=== PATIENT | female | born 1960 | race Caucasian/White ===

== ENCOUNTER 2021-09-21 05:43 | Observation (INO) | payer BC ==
[2021-09-21] MEDS ORDERED: MORPHINE SULFATE 2 MG/ML SYRINGE IVP STA (06:06)
--- NOTE | 2021-09-21 06:19 | ED ---
General Adult HPI - General Chief complaint: Extremity Problem,Nontraumatic Stated complaint: Swollen Feet Time Seen by Provider: 09/21/21 06:05 Source: patient, family, RN notes reviewed, old records reviewed Mode of arrival: wheelchair Limitations: no limitations - History of Present Illness Initial comments: This is a pleasant 61-year-old female that presents to the emergency room with complaints of bilateral lower extremity swelling and left-sided chest pain. Patient states that she has noticed swelling in her legs over the past couple of weeks more so on the left than on the right. She states that today she developed some left-sided chest pain that woke her from sleep and describes it more of a discomfort with some shortness of breath. Patient does take an aspirin a day, no history of DVT or PE. History of diabetes and hypertension. -: week(s) (2) Location: chest, left, right, lower extremity Radiation: non-radiation Severity scale (1-10): 4 Quality: aching Treatments Prior to Arrival: none - Related Data Home Medications Medication Instructions Recorded Confirmed Atorvastatin Calcium [Lipitor] 40 mg PO HS 09/21/21 09/21/21 Gabapentin 800 mg PO TID PRN 09/21/21 09/21/21 Insulin Detemir (Levemir) [Levemir] 10 units SQ BID 09/21/21 09/21/21 Insulin Lispro [Insulin Lispro See Protocol SQ AC-TID 09/21/21 09/21/21 Kwikpen U-100] Levothyroxine Sodium [Synthroid] 175 mcg PO DAILY 09/21/21 09/21/21 Metoprolol Tartrate [Lopressor] 50 mg PO BID 09/21/21 09/21/21 amLODIPine [Norvasc] 5 mg PO HS 09/21/21 09/21/21 lisinopriL [Prinivil] 20 mg PO DAILY 09/21/21 09/21/21 Allergies Allergy/AdvReac Type Severity Reaction Status Date / Time No Known Allergies Allergy Verified 09/21/21 05:51 Review of Systems ROS Statement: Those systems with pertinent positive or pertinent negative responses have been documented in the HPI. ROS Other: All systems not noted in ROS Statement are negative. Past Medical History Past Medical History: Diabetes Mellitus, Hypertension History of Any Multi-Drug Resistant Organisms: None Reported Past Surgical History: Section, Heart Catheterization With Stent Past Psychological History: No Psychological Hx Reported Smoking Status: Current every day smoker, Never smoker Past Alcohol Use History: Occasional Past Drug Use History: Marijuana General Exam Limitations: no limitations General appearance: alert, in no apparent distress Head exam: Present: atraumatic ENT exam: Present: normal oropharynx, mucous membranes moist Neck exam: Absent: tenderness, meningismus, lymphadenopathy Respiratory exam: Present: normal lung sounds bilaterally. Absent: respiratory distress, wheezes, rales, rhonchi, stridor, accessory muscle use, decreased breath sounds Cardiovascular Exam: Present: regular rate, normal rhythm. Absent: JVD GI/Abdominal exam: Present: soft. Absent: distended, tenderness Extremities exam: Present: full ROM, normal capillary refill, pedal edema (Bilateral, left > right), calf tenderness (left ) Left Knee exam: Present: swelling. Absent: tenderness Lower Leg exam: Present: tenderness (calf), swelling, Homans' sign. Absent: ecchymosis, erythema Ankle exam: Present: swelling. Absent: tenderness Foot/Toe exam: Present: swelling. Absent: tenderness, ecchymosis Neurovascular tendon exam: Absent: abnormal cap refill, extremity cold to touch, pallor, foot drop Back exam: Present: normal inspection. Absent: tenderness, CVA tenderness (R), CVA tenderness (L), rash noted Neurological exam: Present: alert, oriented X3 Psychiatric exam: Present: normal affect, normal mood Skin exam: Present: warm, dry, normal color. Absent: cyanosis, diaphoretic, petechiae, pallor Course Vital Signs 09/21/21 09/21/21 05:46 07:49 Temperature 98.0 F Pulse Rate 72 60 Respiratory 18 18 Rate Blood Pressure 162/92 135/80 O2 Sat by Pulse 98 98 Oximetry EKG Findings - EKG Results: EKG: sinus rhythm (Ventricular rate of 66, SC interval 0.167, QRS 0.101, QTC 0.427) Medical Decision Making - Medical Decision Making Patient presents with bilateral lower extremity swelling for 2 weeks and left- sided chest pain and shortness of breath that awoke her from sleep today. EKG shows sinus rhythm and troponin is negative at 0.012. There is no evidence of heart failure on x-ray and BNP is within normal limits. Ultrasound shows no evidence of DVT. Patient did have a echocardiogram in August of this year showing an ejection fraction of 55-60% with mild regurgitation. Patient's pain has improved after morphine. Case discussed with Dr. Nguyen. Patient will be placed in observation with cardiac consult. - Lab Data Result diagrams: 09/21/21 06:16 09/21/21 06:16 Lab Results 09/21/21 09/21/21 09/21/21 Range/Units 06:16 06:16 06:16 WBC 5.2 (3.8-10.6) k/uL RBC 3.42 L (3.80-5.40) m/uL Hgb 11.1 L (11.4-16.0) gm/dL Hct 34.0 (34.0-46.0) % MCV 99.5 (80.0-100.0) fL MCH 32.5 (25.0-35.0) pg MCHC 32.6 (31.0-37.0) g/dL RDW 13.6 (11.5-15.5) % Plt Count 213 (150-450) k/uL MPV 7.8 Neutrophils % 70 % Lymphocytes % 22 % Monocytes % 5 % Eosinophils % 1 % Basophils % 1 % Neutrophils # 3.7 (1.3-7.7) k/uL Lymphocytes # 1.2 (1.0-4.8) k/uL Monocytes # 0.3 (0-1.0) k/uL Eosinophils # 0.1 (0-0.7) k/uL Basophils # 0.0 (0-0.2) k/uL PT 10.7 (9.0-12.0) sec INR 1.0 (<1.2) APTT 24.7 (22.0-30.0) sec D-Dimer 0.22 (<0.60) mg/L FEU Sodium 131 L (137-145) mmol/L Potassium 4.1 (3.5-5.1) mmol/L Chloride 97 L (98-107) mmol/L Carbon Dioxide 27 (22-30) mmol/L Anion Gap 7 mmol/L BUN 32 H (7-17) mg/dL Creatinine 0.89 (0.52-1.04) mg/dL Est GFR (CKD-EPI)AfAm 82 (>60 ml/min/1.73 sqM) Est GFR (CKD-EPI)NonAf 71 (>60 ml/min/1.73 sqM) Glucose 195 H (74-99) mg/dL Calcium 9.2 (8.4-10.2) mg/dL Magnesium 2.1 (1.6-2.3) mg/dL Total Bilirubin 0.5 (0.2-1.3) mg/dL AST 141 H (14-36) U/L ALT 64 H (4-34) U/L Alkaline Phosphatase 167 H (38-126) U/L Troponin I (0.000-0.034) ng/mL NT-Pro-B Natriuret Pep pg/mL Total Protein 6.5 (6.3-8.2) g/dL Albumin 3.6 (3.5-5.0) g/dL 09/21/21 09/21/21 Range/Units 06:16 06:16 WBC (3.8-10.6) k/uL RBC (3.80-5.40) m/uL Hgb (11.4-16.0) gm/dL Hct (34.0-46.0) % MCV (80.0-100.0) fL MCH (25.0-35.0) pg MCHC (31.0-37.0) g/dL RDW (11.5-15.5) % Plt Count (150-450) k/uL MPV Neutrophils % % Lymphocytes % % Monocytes % % Eosinophils % % Basophils % % Neutrophils # (1.3-7.7) k/uL Lymphocytes # (1.0-4.8) k/uL Monocytes # (0-1.0) k/uL Eosinophils # (0-0.7) k/uL Basophils # (0-0.2) k/uL PT (9.0-12.0) sec INR (<1.2) APTT (22.0-30.0) sec D-Dimer (<0.60) mg/L FEU Sodium (137-145) mmol/L Potassium (3.5-5.1) mmol/L Chloride (98-107) mmol/L Carbon Dioxide (22-30) mmol/L Anion Gap mmol/L BUN (7-17) mg/dL Creatinine (0.52-1.04) mg/dL Est GFR (CKD-EPI)AfAm (>60 ml/min/1.73 sqM) Est GFR (CKD-EPI)NonAf (>60 ml/min/1.73 sqM) Glucose (74-99) mg/dL Calcium (8.4-10.2) mg/dL Magnesium (1.6-2.3) mg/dL Total Bilirubin (0.2-1.3) mg/dL AST (14-36) U/L ALT (4-34) U/L Alkaline Phosphatase (38-126) U/L Troponin I <0.012 (0.000-0.034) ng/mL NT-Pro-B Natriuret Pep 490 pg/mL Total Protein (6.3-8.2) g/dL Albumin (3.5-5.0) g/dL Disposition Clinical Impression: Chest pain Disposition: ADMITTED IP TO THIS [facility] Decision Date: 09/21/21 Decision Time: 07:38
[2021-09-21 06:34] LABS: Basophils % (A) 1 %; Eosinophils # (A) 0.1 k/uL (0-0.7); Eosinophils % (A) 1 %; HGB 11.1 gm/dL (11.4-16.0); Lymphocytes # (A) 1.2 k/uL (1.0-4.8); Lymphocytes % (A) 22 %; MCH 32.5 pg (25.0-35.0); MCHC 32.6 g/dL (31.0-37.0); MCV 99.5 fL (80.0-100.0); Mean Platelet Volume 7.8; Monocytes # (A) 0.3 k/uL (0-1.0); Monocytes % (A) 5 %; Neutrophils # (A) 3.7 k/uL (1.3-7.7); Neutrophils % (A) 70 %; Platelet Count 213 k/uL (150-450); RBC 3.42 m/uL (3.80-5.40); RDW 13.6 % (11.5-15.5); WBC 5.2 k/uL (3.8-10.6)
[2021-09-21 06:50] LABS: Albumin 3.6 g/dL (3.5-5.0); Calcium 9.2 mg/dL (8.4-10.2); Magnesium 2.1 mg/dL (1.6-2.3); Potassium 4.1 mmol/L (3.5-5.1); Total Bilirubin 0.5 mg/dL (0.2-1.3); Total Protein 6.5 g/dL (6.3-8.2)
[2021-09-21 06:57] LABS: Partial Thromboplastin Time 24.7 sec (22.0-30.0); Prothrombin Time 10.7 sec (9.0-12.0)
--- NOTE | 2021-09-21 07:02 | XR ---
EXAMINATION TYPE: XR chest 2V DATE OF EXAM: 09/21/2021 COMPARISON: NONE HISTORY: Chest pain TECHNIQUE: 2 views FINDINGS: Heart and mediastinum are normal. Lungs are clear. Diaphragm is normal. Bony thorax appears normal. IMPRESSION: Normal chest.
--- NOTE | 2021-09-21 07:27 | US ---
EXAMINATION TYPE: US venous doppler duplex LE BI DATE OF EXAM: 09/21/2021 7:14 AM COMPARISON: NONE CLINICAL HISTORY: swelling. Bilateral leg swelling SIDE PERFORMED: Bilateral TECHNIQUE: The lower extremity deep venous system is examined utilizing real time linear array sonog elin with graded compression, doppler sonography and color-flow sonography. VESSELS IMAGED: Common Femoral Vein Deep Femoral Vein Greater Saphenous Vein * Femoral Vein Popliteal Vein Small Saphenous Vein * Proximal Calf Veins (* superficial vessels) Right Leg: Negative for DVT Left Leg: Negative for DVT IMPRESSION: No evidence for DVT at this time.
[2021-09-21] MEDS ORDERED: MORPHINE SULFATE 2 MG/ML SYRINGE IVP ONE (07:37)
[2021-09-21] MEDS ORDERED: ACETAMINOPHEN TAB 325 MG TAB PO PRN (07:56)
[2021-09-21] MEDS ORDERED: NALOXONE 0.4 MG/ML 1 ML VIAL IV PRN (07:56)
--- NOTE | 2021-09-21 08:48 | P.HPIM ---
History of Present Illness H&P Date: 09/21/21 Chief Complaint: Chest pain History of Presenting Illness: Patient is a very pleasant 61-year-old female with a past medical history of hypertension, hypothyroidism and insulin-dependent diabetes mellitus. She presented to the emergency department with the chief complaint of bilateral lower extremity edema 4 weeks accompanied by left-sided chest pain. Patient reports that she recently was seen by her PCP for similar complaints and underwent an echocardiogram on 08/23/21. Echocardiogram revealed normal EF of 55- 60% with no significant valvular abnormalities. Patient reports she came to the ED today because this left-sided chest pain was radiating up into her left shoulder and down her left arm upon awakening around 5:00 this morning. Patient describes this pain as an achiness/soreness. She denies having any headache, lightheadedness, dizziness, palpitations, shortness of breath, diaphoresis, nausea, or experiencing any numbness/tingling in her extremities. Patient denies any recent medication changes, fevers, or infections. Patient reports she has often gotten swelling in her legs, but states typically they go down with elevation and over the past 4 weeks or so they seem to be consistently swollen. Patient was seen and fully evaluated in the emergency department. Labs revealed mild hyponatremia with sodium of 131 and transaminitis with AST of 141, ALT of 64, and alkaline phosphatase of 167. Patient has had previous elevated liver enzymes and history of EtOH abuse. Patient also denies having any abdominal pain or discomfort or swelling of her abdomen. A chest x-ray was completed which was negative for acute cardiopulmonary process. Bilateral lower extremity Dopplers negative for DVT. EKG revealed normal sinus rhythm at 66 bpm with no noted T-wave or ST abnormalities. D-dimer and troponin negative. Patient was admitted under our services with consultation to cardiology. Review of systems: Pertinent positives and negatives as discussed in HPI, a complete review of systems was performed and all other systems are negative. Physical exam: Vital signs reviewed and stable. General: Nontoxic, no distress and appears stated age. Derm: Skin warm and dry, normal coloration for ethnicity. Head: Atraumatic, normocephalic and symmetric. Eyes: EOMs intact, no lid lag, and anicteric sclera Mouth: no lip lesions, mucus membranes moist Cardiovascular: regular rate and rhythm with normal S1S2, no murmur, positive posterior tibial pulses bilaterally, and cap refill < 2 seconds. Lungs: Respirations even, regular, and unlabored on room air. Lungs CTA bilaterally, no rhonchi, no rales, no wheezing, and no accessory muscle usage. Abdominal: soft, nontender to palpation, no guarding, no appreciable orga nomegaly Ext: ROM intact. No gross muscle atrophy, no edema, no contractures Neuro: Speech clear, face symmetrical and CN II-XII grossly intact with no noted focal neuro deficits Psych: Alert and oriented to person, place, time, and situation. Appropriate and pleasant affect. Assessment and Plan of Care: Chest pain, rule out acute coronary event -Cardiology consult, appreciate further recommendations -Telemetry monitoring -Trend troponins -Cardiac diet, NPO at midnight -Aspirin, atorvastatin, and metoprolol -Lipid profile with a.m. labs. -Echocardiogram Transaminitis -Appears chronic, patient denies alcohol abuse, daily Tylenol use or history of hepatitis. -Patient denies having any right upper quadrant pain or discomfort. -Recommend repeat labs upon discharge and if persistent elevation, will likely need further evaluation with additional testing by PCP and/or mental health social worker. Hypertension Monitor vital signs and continue daily medication regimen with lisinopril, amlodipine, metoprolol. Hypothyroidism Continue daily medication regimen with levothyroxine. The patient is admitted with an anticipated less than 2 midnight stay for evaluation of chest pain. CODE STATUS: Full code DVT prophylaxis: SCDs Discussed with: Patient and RN Anticipated discharge date: Later today versus tomorrow morning Anticipated discharge place: Home A total of 40 minutes was spent on the care of this complex patient more than 50% of the time was spent in counseling and care coordination. Past Medical History Past Medical History: Diabetes Mellitus, Hypertension History of Any Multi-Drug Resistant Organisms: None Reported Past Surgical History: Section, Heart Catheterization With Stent Past Psychological History: No Psychological Hx Reported Smoking Status: Current every day smoker, Never smoker Past Alcohol Use History: Occasional Past Drug Use History: Marijuana Medications and Allergies Home Medications Medication Instructions Recorded Confirmed Type Atorvastatin Calcium [Lipitor] 40 mg PO HS 09/21/21 09/21/21 History Gabapentin 800 mg PO TID PRN 09/21/21 09/21/21 History Insulin Detemir (Levemir) [Levemir] 10 units SQ BID 09/21/21 09/21/21 History Insulin Lispro [Insulin Lispro See Protocol SQ AC-TID 09/21/21 09/21/21 History Kwikpen U-100] Levothyroxine Sodium [Synthroid] 175 mcg PO DAILY 09/21/21 09/21/21 History Metoprolol Tartrate [Lopressor] 50 mg PO BID 09/21/21 09/21/21 History amLODIPine [Norvasc] 5 mg PO HS 09/21/21 09/21/21 History lisinopriL [Prinivil] 20 mg PO DAILY 09/21/21 09/21/21 History Allergies Allergy/AdvReac Type Severity Reaction Status Date / Time No Known Allergies Allergy Verified 09/21/21 05:51 Physical Exam Vitals: Vital Signs Temp Pulse Resp BP Pulse Ox 09/21/21 07:49 60 18 135/80 98 09/21/21 05:46 98.0 F 72 18 162/92 98 Intake and Output 09/20/21 09/21/21 09/21/21 22:59 06:59 14:59 Other: Weight 95.708 kg Results CBC & Chem 7: 09/21/21 06:16 09/21/21 06:16 Labs: Abnormal Lab Results - Last 24 Hours (Table) 09/21/21 09/21/21 Range/Units 06:16 06:16 RBC 3.42 L (3.80-5.40) m/uL Hgb 11.1 L (11.4-16.0) gm/dL Sodium 131 L (137-145) mmol/L Chloride 97 L (98-107) mmol/L BUN 32 H (7-17) mg/dL Glucose 195 H (74-99) mg/dL AST 141 H (14-36) U/L ALT 64 H (4-34) U/L Alkaline Phosphatase 167 H (38-126) U/L
[2021-09-21] MEDS ORDERED: LEVOTHYROXINE 88 MCG TAB PO SCH (09:00)
[2021-09-21] MEDS ORDERED: GABAPENTIN 400 MG CAP PO SCH (09:00)
[2021-09-21] MEDS ORDERED: lisinopriL 20 MG TAB PO SCH (09:00)
[2021-09-21] MEDS ORDERED: METOPROLOL TARTRATE 50 MG TAB PO SCH (09:00)
[2021-09-21] MEDS ORDERED: INSULIN DETEMIR (LEVEMIR) 100 UNIT/ML SYR SQ SCH (09:00)
[2021-09-21 09:28] LABS: Glucose,Whole Blood 71 mg/dL (75-99)
--- NOTE | 2021-09-21 10:02 | P.CRDCN ---
History of Present Illness Consult date: 09/21/21 History of present illness: HISTORY OF PRESENT ILLNESS: This is a 61-year-old female with a past medical history significant for hypertension diabetes, and hypothyroidism. Patient does not follow with a industrial sociologist. We have been asked to see the patient in consultation for chest pain. Patient examined at the bedside. Patient states that she woke up this morning around 5 AM and was having chest pain. She states that discomfort went into her left arm. She states it feels like a soreness. She describes it as a muscle ache after lifting weights or exercising but she states she did not do any exercise. She also reports that her legs are swollen and she feels like it is hard to walk. She reports generalized weakness. The patient did have an echocardiogram performed last month revealing preserved ejection fraction. * EKG reveals sinus mechanism with no signs of acute ischemia * Chest xray negative for acute process * Laboratory data: WBC 5.2. Hemoglobin 11.1. Platelet count 213. D-dimer 0.22. Sodium 131. Potassium 4.1. BUN 32. Creatinine 0.98. Troponin negative 1. * Current home cardiac medications include metoprolol tartrate 59 g twice a day, amlodipine 5 mg at night, Lipitor 40 mg at night, lisinopril 20 mg daily REVIEW OF SYSTEMS: At the time of my exam: CONSTITUTIONAL: Denies fever or chills. HEENT: Denies blurred vision, vision changes, or eye pain. Denies hemoptysis CARDIOVASCULAR: Denies chest pain. Denies orthopnea. Denies PND. Denies palpitations RESPIRATORY: Denies shortness of breath. GASTROINTESTINAL: Denies abdominal pain. Denies nausea or vomiting. HEMATOLOGIC: Denies bleeding disorders. GENITOURINARY: Denies any blood in urine. SKIN: Denies pruitis. Denies rash. PHYSICAL EXAM: VITAL SIGNS: Reviewed. GENERAL: Well-developed in no acute distress. HEENT: Head is normocephalic. Pupils are equal, round. Sclerae anicteric. Mucous membranes of the mouth are moist. Neck supple. No JVD or thyromegaly LUNGS: Respirations even and unlabored. Lungs essentially clear to auscultation bilaterally. HEART: Regular rate and rhythm. S1 and S2 heard. ABDOMEN: Soft. Nondistended. Nontender. EXTREMITIES: Normal range of motion. No clubbing or cyanosis. Peripheral pulses intact. Trace bilateral lower extremity edema NEUROLOGIC: Awake and alert. Oriented x 3. ASSESSMENT: Chest pain Hypertension Hyperlipidemia Diabetes Hypothyroidism PLAN: No need to repeat echocardiogram. Obtain repeat EKG Trend troponins If second troponin remains negative, the patient may be discharged home today from a cardiac standpoint and have further workup on an outpatient basis Nurse practitioner note has been reviewed by physician. Signing provider agrees with the documented findings, assessment, and plan of care. Past Medical History Past Medical History: Diabetes Mellitus, Hypertension History of Any Multi-Drug Resistant Organisms: None Reported Past Surgical History: Section, Heart Catheterization With Stent Past Psychological History: No Psychological Hx Reported Smoking Status: Current every day smoker, Never smoker Past Alcohol Use History: Occasional Past Drug Use History: Marijuana Medications and Allergies Home Medications Medication Instructions Recorded Confirmed Type Atorvastatin Calcium [Lipitor] 40 mg PO HS 09/21/21 09/21/21 History Gabapentin 800 mg PO TID PRN 09/21/21 09/21/21 History Insulin Detemir (Levemir) [Levemir] 10 units SQ BID 09/21/21 09/21/21 History Insulin Lispro [Insulin Lispro See Protocol SQ AC-TID 09/21/21 09/21/21 History Kwikpen U-100] Levothyroxine Sodium [Synthroid] 175 mcg PO DAILY 09/21/21 09/21/21 History Metoprolol Tartrate [Lopressor] 50 mg PO BID 09/21/21 09/21/21 History amLODIPine [Norvasc] 5 mg PO HS 09/21/21 09/21/21 History lisinopriL [Prinivil] 20 mg PO DAILY 09/21/21 09/21/21 History Allergies Allergy/AdvReac Type Severity Reaction Status Date / Time No Known Allergies Allergy Verified 09/21/21 05:51 Physical Exam Vitals: Vital Signs Temp Pulse Resp BP Pulse Ox 09/21/21 07:49 60 18 135/80 98 09/21/21 05:46 98.0 F 72 18 162/92 98 Intake and Output 09/20/21 09/21/21 09/21/21 22:59 06:59 14:59 Other: Weight 95.708 kg Results 09/21/21 06:16 09/21/21 06:16 Cardiac Enzymes 09/21/21 09/21/21 Range/Units 06:16 06:16 AST 141 H (14-36) U/L Troponin I <0.012 (0.000-0.034) ng/mL Coagulation 09/21/21 Range/Units 06:16 PT 10.7 (9.0-12.0) sec APTT 24.7 (22.0-30.0) sec CBC 05 Range/Units 06:16 WBC 5.2 (3.8-10.6) k/uL RBC 3.42 L (3.80-5.40) m/uL Hgb 11.1 L (11.4-16.0) gm/dL Hct 34.0 (34.0-46.0) % Plt Count 213 (150-450) k/uL Comprehensive Metabolic Panel 09/21/21 Range/Units 06:16 Sodium 131 L (137-145) mmol/L Potassium 4.1 (3.5-5.1) mmol/L Chloride 97 L (98-107) mmol/L Carbon Dioxide 27 (22-30) mmol/L BUN 32 H (7-17) mg/dL Creatinine 0.89 (0.52-1.04) mg/dL Glucose 195 H (74-99) mg/dL Calcium 9.2 (8.4-10.2) mg/dL AST 141 H (14-36) U/L ALT 64 H (4-34) U/L Alkaline Phosphatase 167 H (38-126) U/L Total Protein 6.5 (6.3-8.2) g/dL Albumin 3.6 (3.5-5.0) g/dL Current Medications Generic Name Dose Route Start Last Admin Trade Name Freq PRN Reason Stop Dose Admin Acetaminophen 650 mg 09/21/21 07:56 Acetaminophen Tab 325 Mg Tab PO Q6HR PRN Mild Pain or Fever > 100.5 Amlodipine Besylate 5 mg 09/21/21 21:00 Amlodipine 5 Mg Tab PO HS SWETA Atorvastatin Calcium 40 mg 09/21/21 21:00 Atorvastatin 40 Mg Tab PO HS SWETA Gabapentin 800 mg 09/21/21 09:00 Gabapentin 400 Mg Cap PO TID SWETA Insulin Aspart 0 unit 09/21/21 12:30 Insulin Aspart (Novolog) 100 Unit/Ml Vial SQ ACHS [facility] Protocol Insulin Detemir 10 unit 09/21/21 09:00 Insulin Detemir (Levemir) 100 Unit/Ml Syr SQ BID@0700,2100 [facility] Levothyroxine Sodium 176 mcg 09/21/21 09:00 Levothyroxine 88 Mcg Tab PO DAILY@0630 [facility] Lisinopril 20 mg 09/21/21 09:00 Lisinopril 20 Mg Tab PO DAILY SWETA Metoprolol Tartrate 50 mg 09/21/21 09:00 Metoprolol Tartrate 50 Mg Tab PO BID [facility] Naloxone HCl 0.2 mg 09/21/21 07:56 Naloxone 0.4 Mg/Ml 1 Ml Vial IV Q2M PRN Opioid Reversal Intake and Output 09/20/21 09/21/21 09/21/21 22:59 06:59 14:59 Other: Weight 95.708 kg 09/21/21 06:16 09/21/21 06:16
[2021-09-21 12:29] LABS: Glucose,Whole Blood 79 mg/dL (75-99)
[2021-09-21] MEDS ORDERED: INSULIN ASPART (NovoLOG) 100 UNIT/ML VIAL SQ SCH (12:30)
[2021-09-21] MEDS ORDERED: HYDROcodone/APAP 5-325MG 1 EACH TAB PO PRN (13:34)
--- NOTE | 2021-09-21 15:53 | P.DS ---
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 Hypertension, Monitor vital signs and continue daily medication regimen with lisinopril, amlodipine, metoprolol. Hypothyroidism, Continue daily medication regimen with levothyroxine. Insulin-dependent diabetes mellitus, continue daily medication regimen with Levemir [facility] Course: Patient is a very pleasant 61-year-old female with a past medical history of hypertension and insulin-dependent diabetes mellitus. She presented to the emergency department with the chief complaint of bilateral lower extremity edema 4 weeks accompanied by left-sided chest pain. Patient reports that she recently was seen by her PCP for similar complaints and underwent an echocardiogram on 08/23/21. Echocardiogram revealed normal EF of 55-60% with no significant valvular abnormalities. Patient reports she came to the ED today because this left-sided chest pain was radiating up into her left shoulder and down her left arm upon awakening around 5:00 this morning. Patient describes this pain as an achiness/soreness. She denies having any headache, lightheadedness, dizziness, palpitations, shortness of breath, diaphoresis, nausea, or experiencing any numbness/tingling in her extremities. Patient denies any recent medication changes, fevers, or infections. Patient reports she has often gotten swelling in her legs, but states typically they go down with elevation and over the past 4 weeks or so they seem to be consistently swollen. Patient was seen and fully evaluated in the emergency department. Labs revealed mild hyponatremia with sodium of 131 and transaminitis with AST of 141, ALT of 64, and alkaline phosphatase of 167. Patient has had previous el evated liver enzymes and history of EtOH abuse. Patient also denies having any abdominal pain or discomfort or swelling of her abdomen. A chest x-ray was completed which was negative for acute cardiopulmonary process. Bilateral lower extremity Dopplers negative for DVT. EKG revealed normal sinus rhythm at 66 bpm with no noted T-wave or ST abnormalities. D-dimer and troponin negative. Patient was admitted under our services with consultation to cardiology. Troponins were trended all less than 0.0123 draws. A repeat EKG was completed revealing normal sinus rhythm at 61 bpm with occasional PAC and no noted T-wave or ST abnormalities. Cardiology recommending outpatient follow-up in our office. Patient is medically stable at this time and to be discharged home. As recommended patient follow-up with PCP in 1-2 days and establish care with machine design teacher and follow-up in their office in one week. Patient also instructed it is important to repeat CMP to monitor liver enzymes as they appear to be chronically elevated and this may require additional outpatient testing/monitoring. No medication changes made at this time. Vital signs unremarkable with blood pressure 135/80, heart rate 60, respiratory rate 18, and SpO2 of 98% on room air. A total of 34 minutes of time were spent preparing this complex discharge summary. Pt was discharged on 09/21/21 at 2:57 PM Patient Condition at Discharge: Stable Plan - Discharge Summary New Discharge Prescriptions: Continue lisinopriL [Prinivil] 20 mg PO DAILY Levothyroxine Sodium [Synthroid] 175 mcg PO DAILY amLODIPine [Norvasc] 5 mg PO HS Gabapentin 800 mg PO TID PRN PRN Reason: Pain Atorvastatin Calcium [Lipitor] 40 mg PO HS Insulin Detemir (Levemir) [Levemir] 10 units SQ BID Insulin Lispro [Insulin Lispro Kwikpen U-100] See Protocol SQ AC-TID Metoprolol Tartrate [Lopressor] 50 mg PO BID Discharge Medication List Atorvastatin Calcium [Lipitor] 40 mg PO HS 09/21/21 [History] Gabapentin 800 mg PO TID PRN 09/21/21 [History] Insulin Detemir (Levemir) [Levemir] 10 units SQ BID 09/21/21 [History] Insulin Lispro [Insulin Lispro Kwikpen U-100] See Protocol SQ AC-TID 09/21/21 [History] Levothyroxine Sodium [Synthroid] 175 mcg PO DAILY 09/21/21 [History] Metoprolol Tartrate [Lopressor] 50 mg PO BID 09/21/21 [History] amLODIPine [Norvasc] 5 mg PO HS 09/21/21 [History] lisinopriL [Prinivil] 20 mg PO DAILY 09/21/21 [History] Follow up Appointment(s)/Referral(s): Cem Tafoya MD [STAFF PHYSICIAN] - 1 Week (dr barker office will call to schedule appointment with gilberto) Derrick Iniguez [Primary Care Provider] - 1-2 days Ambulatory/Diagnostic Orders: Comprehensive Metabolic Panel [LAB.AMB] Time Frame: 3 Days, Location: None Selected Patient Instructions/Handouts: Chest Pain (DC) Activity/Diet/Wound Care/Special Instructions: Activity: As tolerated. Take breaks as needed. Diet: Heart healthy and carb consistent diet. Avoid salts, or foods with hidden salts such as canned or boxed foods and frozen dinners. Extra salt makes your heart work harder and traps the fluid in your body for longer. Special Instructions: Take all of your medications as directed and remember to keep all of your doctor's appointments and follow-up as needed. It appears your liver enzymes are chronically elevated. If these continue to elevate or you develop right upper quadrant pain, this needs to be further addressed/additional testing to be completed. Recommend repeat CMP in 3 days to evaluate liver function and follow up with your PCP on Friday. If these enzymes continue to remain elevated, I highly recommend outpatient evaluation by a supervisor concrete stone finishing such as Dr. Swanson. Thank you for allowing us to participate in your care, it was truly a pleasure having you for our patient!!!
[2021-09-21 17:08] VITALS: BP 147/87; PULSE 55; RESP 14; TEMP 97.9
[2021-09-21] MEDS ORDERED: ATORVASTATIN 40 MG TAB PO SCH (21:00)
[2021-09-21] MEDS ORDERED: amLODIPine 5 MG TAB PO SCH (21:00)
== END 2021-09-21 17:08 | disposition home or self-care (01) ==
LOC: EC 05:43 → 6NMEDSUR 08:03
PROVIDERS: ADMIT Family Medicine; ATTEND Family Medicine
DX: R07.89 Other chest pain (principal); R74.01 Elevation of levels of liver transaminase levels; I10 Essential (primary) hypertension; E03.9 Hypothyroidism, unspecified; E11.9 Type 2 diabetes mellitus without complications; E78.5 Hyperlipidemia, unspecified; R06.02 Shortness of breath; R60.0 Localized edema; M79.89 Other specified soft tissue disorders; E87.1 Hypo-osmolality and hyponatremia; F17.200 Nicotine dependence, unspecified, uncomplicated; Z71.9 Counseling, unspecified; Z79.899 Other long term (current) drug therapy; Z79.4 Long term (current) use of insulin; Z79.82 Long term (current) use of aspirin; Z79.890 Hormone replacement therapy; Z95.5 Presence of coronary angioplasty implant and graft
CPT/HCPCS: 96376; 96374; 99285; 36415; 93005; 85379; 83880; 80053; 83735; 84484; 85025; 85610; 85730; 71046; 93970; G0378; J2270

== ENCOUNTER 2021-12-23 11:21 | Emergency (ER) | payer BC ==
[2021-12-23 11:34] VITALS: TEMP 98.1
[2021-12-23] MEDS ORDERED: KETOROLAC 15 MG/ML 1 ML VIAL IM STA (11:51)
--- NOTE | 2021-12-23 12:38 | ED ---
General Adult HPI - General Chief complaint: Fall Stated complaint: fell on R arm Time Seen by Provider: 12/23/21 11:35 Source: patient, RN notes reviewed, old records reviewed Mode of arrival: wheelchair Limitations: no limitations - History of Present Illness Initial comments: This is a 61-year-old female who states she fell in her hallway and hurt her right forearm and elbow. Patient states she did not hit her head she did not hit her neck she denies any numbness weakness. Patient denies any other extremity pain. Patient denies back chest or abdominal pain. Patient denies any numbness or weakness. - Related Data Home Medications Medication Instructions Recorded Confirmed Atorvastatin Calcium [Lipitor] 40 mg PO HS 09/21/21 09/21/21 Gabapentin 800 mg PO TID PRN 09/21/21 09/21/21 Insulin Detemir (Levemir) [Levemir] 10 units SQ BID 09/21/21 09/21/21 Insulin Lispro [Insulin Lispro See Protocol SQ AC-TID 09/21/21 09/21/21 [place]wik[place] U-100] Levothyroxine Sodium [Synthroid] 175 mcg PO DAILY 09/21/21 09/21/21 Metoprolol Tartrate [Lopressor] 50 mg PO BID 09/21/21 09/21/21 amLODIPine [Norvasc] 5 mg PO HS 09/21/21 09/21/21 lisinopriL [Prinivil] 20 mg PO DAILY 09/21/21 09/21/21 Allergies Allergy/AdvReac Type Severity Reaction Status Date / Time No Known Allergies Allergy Verified 12/23/21 11:34 Review of Systems ROS Statement: Those systems with pertinent positive or pertinent negative responses have been documented in the HPI. ROS Other: All systems not noted in ROS Statement are negative. Past Medical History Past Medical History: Diabetes Mellitus, Hypertension History of Any Multi-Drug Resistant Organisms: None Reported Past Surgical History: Section, Heart Catheterization With Stent Past Psychological History: No Psychological Hx Reported Smoking Status: Former smoker Past Alcohol Use History: Occasional Past Drug Use History: Marijuana General Exam - General Exam Comments Initial Comments: GENERAL Patient is well-developed and well-nourished. Patient is in mild distress. EYES Patient's pupils are equal and round. Extraocular motion is intact SKIN Unremarkable NEURO The patient is alert and oriented 3 PYSCH Patient has normal interpersonal interactions. MUSCULOSKELETAL Patient has tenderness in the lateral medial aspect of the elbow and some proximal forearm tenderness. There is no swelling or deformity noted Limitations: no limitations Course Vital Signs 12/23/21 12/23/21 11:31 14:25 Temperature 98.1 F Pulse Rate 58 L 62 Respiratory 16 15 Rate Blood Pressure 124/77 152/83 O2 Sat by Pulse 99 98 Oximetry Procedures - Orthopedic Splinting/Casting Injury #1 Side: right Upper Extremity Injury Location: long arm Upper Extremity Immobilizer: posterior splint Medical Decision Making - Medical Decision Making X-ray of the forearm and elbow show no obvious fracture but does show an effusion. Computed tomography scan of the elbow did show a fracture of the distal humerus with no displacement. I splinted the patient and put the patient in a sling. Disposition Clinical Impression: Humeral distal fracture, Fall Disposition: HOME SELF-CARE Instructions (If sedation given, give patient instructions): Fall Prevention for Older Adults (ED) Is patient prescribed a controlled substance at d/c from ED?: No Referrals: Derrick Iniguez [Primary Care Provider] - 1-2 days Time of Disposition: 14:39
--- NOTE | 2021-12-23 12:39 | XR ---
EXAMINATION TYPE: XR elbow limited RT, XR forearm RT DATE OF EXAM: 12/23/2021 12:22 PM INDICATION: Patient age:Female; 61 years old; Reason for study: Trauma; COMPARISON: None TECHNIQUE: The right elbow was examined in AP, lateral, projections. The right forearm was examined in the frontal and lateral views. FINDINGS: Suspected elbow effusion is with edematous opacity posterior to the elbow. Evaluation later al segment limited given technique. There is no evidence of fracture of the osseous structures. There is ulnar negative variance.. No obvious fracture identified. IMPRESSION: Underlying elbow effusion suspected with edematous changes posterior to the elbow. Consider further e valuation CT if there remains concern for fracture.
--- NOTE | 2021-12-23 14:05 | CT ---
EXAMINATION TYPE: CT elbow RT wo con CT DLP: 282.3 mGycm, Automated exposure control for dose reduction was used. DATE OF EXAM: 12/23/2021 1:48 PM COMPARISON: Extremity radiograph same day. CLINICAL INDICATION:Female, 61 years old with history of Trauma; , Right elbow injury TECHNIQUE: Axial images were obtained of the right elbow without the use of IV contrast. Additional coronal and sagittal reformatted images and soft tissue and bone window were obtained for review. FINDINGS: Nondisplaced fracture through the distal humerus medial and lateral epicondyles. There is no definiti ve intra-articular extension. There is a lipohemarthrosis present best appreciated on series 201 imag e 43. The radius and ulna appear intact. IMPRESSION: 1. Nondisplaced fracture through the distal humerus involving the medial and lateral epicondyles wit hout definitive intra-articular extension . 2. lipohemarthrosis.
[2021-12-23 14:27] VITALS: BP 152/83; PULSE 62; RESP 15
== END 2021-12-23 14:53 | disposition home or self-care (01) ==
LOC: EC 11:21
DX: S42.444A Nondisplaced fracture (avulsion) of medial epicondyle of right humerus, initial encounter for closed fracture (principal); S42.434A Nondisplaced fracture (avulsion) of lateral epicondyle of right humerus, initial encounter for closed fracture; E11.9 Type 2 diabetes mellitus without complications; I10 Essential (primary) hypertension; Z87.891 Personal history of nicotine dependence; Z79.4 Long term (current) use of insulin; Z79.899 Other long term (current) drug therapy; W19.XXXA Unspecified fall, initial encounter
CPT/HCPCS: 99283; 96372; 73070; 73090; 73200; 29105; J1885

== ENCOUNTER → 2022-03-04 | Outpatient (CLI) | payer BC ==
[2022-03-04 08:46] VITALS: BP 159/80; PULSE 77; RESP 16; TEMP 97.8
--- NOTE | 2022-03-04 14:46 | P.PAINPG ---
PQRS Measure Charge Sheet Comment: HISTORY OF PRESENT ILLNESS: 62 yr old female as a referral from Dr Arthur presents today w severe and chronic R Hip/Pelvic s/p fracture x 4 yrs for evaluation. Pt states her pain level is currently at 6/10 in intensity, constant, localized in the R hip, achy in character w shooting pain towards the . Pain is provoked by weight bearing. Pain is alleviated w manual massage, home stretches as tolerated, heat, ice, medications (Neurontin), chiropractic treatments in 2020w minimal relief, repositioning and rest. PMH: Diabetes Mellitus, HTN PSH: Section, Heart Catheterization With Stent x4 SH: Daily tobacco use, +Cannabis, Occasional ETOH use FH: Non contributory All: NKDA Meds: See list REVIEW OF ORGAN SYSTEMS: CONSTITUTIONAL: No fevers or chills. No recent weight loss. NEUROLOGICAL: + numbness and tingling along the distal extremities. No seizure disorders or headaches. MUSCULOSKELETAL: + pain PSYCHIATRIC: Denies current depression or suicidal thoughts. Physical Examinations : Constitutional : Cooperative , not in acute distress . Neurologic : Cranial nerve II to XII intact. No focal neurological deficits. Psychiatric : alert & oriented x 3. Matching mood & appropriate affect. Judgment & insight intact. Musculoskeletal : Cervical Spine Motor strength in the deltoid and biceps: Normal right side. Normal Left side Motor strength biceps and the wrist extensors: Normal right side . Normal left side Motor strength in the triceps muscle: Normal right side. Normal left side Deep tendon reflexes: Normal at the biceps. Normal at Brachioradialis. Normal at triceps Vertebral body tenderness to deep palpation over Cervical facet loading test: positive bilaterally Spurling test: positive bilaterally Neck distraction test: positive bilaterally Radha sign: positive bilaterally Lumbar spine Motor strength lower extremities ,thigh and legs 5/5 Right side , 5/5 Left side Deep tendon reflexes : Normal Knee Jerk. Normal Ankle Jerk Vertebral body tenderness over Lumbar facet Loading Test: positive Right / positive Left Range of motion of the lumbar spine Flexion 30 degrees, extension 10 degrees Straight Leg Raise test: Left/ Right positive at degree Harmony test: positive right / positive left. Severe tenderness over the Sacroiliac joint on the Right / Left sides Gaenslen test: positive bilaterally Seated flexion test: positive bilaterally. Sacral spine : Severe tenderness over the Sacroiliac joint: right side / left side Range of motion: Flexion of the lumbar spine <60 degrees Range of motion: Extension of the lumbar spine <20 degrees Gaenslen's Test positive on L Andrew's Test positive Harmony test: positive right side / left side Thigh Thrust Test Sacral Thrust Test Imaging: None on file Assessment/ Plan : Lumbar DDD Recommendation of PT x 6 wks re : M51.36. Also MRI of the lumbar spine Re: M51.36 and R hip Re: 72.91XA. Pt may return to this clinic within 6 wks for a reevaluation. All questions answered. I have spent greater than 30 minutes on patient care today. Dr Shaikh was available by phone for the evaluation of this patient. The time was used to review the medical records including relevant urine studies and Prescription history (MAPs), review of the available imaging, evaluation and examination of the patient, coordination of care with the medical staff and if applicable referring physicians, as well as creation of the medical record Home Medications: Ambulatory Orders Atorvastatin Calcium [Lipitor] 40 mg PO HS 09/21/21 Gabapentin 800 mg PO TID PRN 09/21/21 Insulin Detemir (Levemir) [Levemir] 10 units SQ BID 09/21/21 Insulin Lispro [Insulin Lispro Kwikpen U-100] See Protocol SQ AC-TID 09/21/21 Levothyroxine Sodium [Synthroid] 175 mcg PO DAILY 09/21/21 amLODIPine [Norvasc] 5 mg PO HS 09/21/21 lisinopriL [Prinivil] 20 mg PO DAILY 09/21/21 DULoxetine HCL [Cymbalta] 60 mg PO DAILY 03/04/22 Controlled Substance Measures - Controlled Substance Measures Is patient prescribed a controlled substance at discharge?: No
== END | disposition home or self-care (01) ==
LOC: PNWHC3 08:20
PROVIDERS: ATTEND Specialist
DX: S72.91XA Unspecified fracture of right femur, initial encounter for closed fracture (principal); M51.36 Other intervertebral disc degeneration, lumbar region; Z87.81 Personal history of (healed) traumatic fracture; X58.XXXA Exposure to other specified factors, initial encounter
CPT/HCPCS: 99211

== ENCOUNTER 2022-04-14 15:03 | Inpatient (IN) | payer BC ==
[2022-04-14] MEDS ORDERED: SODIUM CHLORIDE 0.9% 1,000 ML IV STA (15:50)
[2022-04-14] MEDS ORDERED: ONDANSETRON 4 MG/2 ML VIAL IVP STA (15:50)
[2022-04-14] MEDS ORDERED: METOCLOPRAMIDE 5 MG/ML 2 ML VIAL IVP STA (15:52)
--- NOTE | 2022-04-14 16:39 | ED ---
Abdominal Pain HPI - General Chief Complaint: Abdominal Pain Stated Complaint: Nausea and vomiting Time Seen by Provider: 04/14/22 15:45 Source: patient Mode of arrival: EMS Limitations: no limitations - History of Present Illness Initial Comments: Patient is a 62-year-old female history of type 1 diabetes, gastroparesis, hypertension and CAD presenting with chief complaint of nausea and vomiting. Symptoms started today. Patient gradually started to feel nauseous and then started having uncontrollable nausea and vomiting. Patient notes that this m orning when she checked her blood sugar it was low, she ate some food and drank orange juice. Later on symptoms started. States that when EMS checked her blood sugar it was in the 500s. Patient states that for the past few weeks she has had issues with highs and lows regarding her blood sugar. She admits to abdominal soreness from retching. No localized abdominal pain. No chest pain or shortness of breath. No palpitations. No fever or chills. No numbness or tingling. - Related Data Home Medications Medication Instructions Recorded Confirmed Atorvastatin Calcium [Lipitor] 40 mg PO DIRECTED 09/21/21 04/14/22 Gabapentin 800 mg PO DIRECTED 09/21/21 04/14/22 Insulin Detemir (Levemir) [Levemir] 10 units SQ DIRECTED 09/21/21 04/14/22 Insulin Lispro [Insulin Lispro See Protocol SQ DIRECTED 09/21/21 04/14/22 Kwikpen U-100] amLODIPine [Norvasc] 5 mg PO DIRECTED 09/21/21 04/14/22 lisinopriL [Prinivil] 20 mg PO DIRECTED 09/21/21 04/14/22 DULoxetine HCL [Cymbalta] 60 mg PO DIRECTED 03/04/22 04/14/22 Levothyroxine Sodium [Synthroid] 150 mcg PO DIRECTED 04/14/22 04/14/22 Allergies Allergy/AdvReac Type Severity Reaction Status Date / Time No Known Allergies Allergy Verified 04/14/22 19:09 Review of Systems ROS Statement: Those systems with pertinent positive or pertinent negative responses have been documented in the HPI. ROS Other: All systems not noted in ROS Statement are negative. Past Medical History Past Medical History: Coronary Artery Disease (CAD), Diabetes Mellitus, Hypertension History of Any Multi-Drug Resistant Organisms: None Reported Past Surgical History: Section, Heart Catheterization With Stent Past Anesthesia/Blood Transfusion Reactions: No Reported Reaction Date of Last Stent Placement:: 2021 Smoking Status: Former smoker - Past Family History Mother Additional Family Medical History / Comment(s): hodykins lymphoma Sister(s) Additional Family Medical History / Comment(s): hodykins lymphoma General Exam Limitations: no limitations General appearance: alert, in no apparent distress Head exam: Present: atraumatic, normocephalic, normal inspection Eye exam: Present: normal appearance Neck exam: Present: normal inspection Respiratory exam: Present: normal lung sounds bilaterally. Absent: respiratory distress, wheezes, rales, rhonchi, stridor Cardiovascular Exam: Present: regular rate, normal rhythm, normal heart sounds. Absent: systolic murmur, diastolic murmur, rubs, gallop, clicks GI/Abdominal exam: Present: soft, tenderness. Absent: distended, guarding, rebound, rigid Neurological exam: Present: alert, oriented X3, CN II-XII intact Psychiatric exam: Present: normal affect, normal mood Skin exam: Present: warm, dry, intact, normal color. Absent: rash Course Vital Signs 04/14/22 04/14/22 04/14/22 15:38 17:45 18:54 Temperature 97.6 F Pulse Rate 90 100 99 Pulse Rate [ Pulse Oximetery ] Respiratory 20 18 18 Rate Blood Pressure 196/96 160/70 135/62 Blood Pressure [Right Arm] O2 Sat by Pulse 98 99 99 Oximetry 04/14/22 04/14/22 20:41 20:45 Temperature 98.0 F Pulse Rate 96 Pulse Rate [ 99 Pulse Oximetery ] Respiratory 18 19 Rate Blood Pressure 160/78 Blood Pressure 139/71 [Right Arm] O2 Sat by Pulse 98 98 Oximetry Medical Decision Making - Medical Decision Making Patient is a 62-year-old female with history of type 1 diabetes presenting with chief complaint of nausea and vomiting. Symptoms started this afternoon. Patient states when she woke up today her blood sugar was in the 50s, she drank some orange juice and ate some food, and later on developed nausea and vomiting. When EMS checked her blood sugar it was in the 500s she reports. On initial examination patient is retching uncontrollably. She is given Reglan and fluids, and reassessment she reports great improvement in her symptoms. Lab work shows glucose 569, carbon dioxide 19, anion gap 18. 3+ ketones seen on UA. UA is also positive for nitrites, 4 urine WBC, patient is given a dose of Rocephin. KUB x-ray shows nonacute abdomen. The ABG shows CO2 35 and bicarb 19. Patient is started on another fluid bolus and 10 units insulin bolus was ordered and patient was started on insulin drip. Case is discussed with Dr. Lau who agreed to admit the patient. I discussed this case with my attending Dr. Fabian. Patient is agreeable with this plan. - Lab Data Result diagrams: 04/14/22 16:17 04/14/22 16:17 Lab Results 04/14/22 04/14/22 04/14/22 Range/Units 16:17 16:17 16:17 WBC 9.0 (3.8-10.6) k/uL RBC 4.02 (3.80-5.40) m/uL Hgb 13.1 (11.4-16.0) gm/dL Hct 39.6 (34.0-46.0) % MCV 98.3 (80.0-100.0) fL MCH 32.5 (25.0-35.0) pg MCHC 33.0 (31.0-37.0) g/dL RDW 13.9 (11.5-15.5) % Plt Count 184 (150-450) k/uL MPV 9.8 Neutrophils % 87 % Lymphocytes % 7 % Monocytes % 4 % Eosinophils % 0 % Basophils % 0 % Neutrophils # 7.8 H (1.3-7.7) k/uL Lymphocytes # 0.7 L (1.0-4.8) k/uL Monocytes # 0.4 (0-1.0) k/uL Eosinophils # 0.0 (0-0.7) k/uL Basophils # 0.0 (0-0.2) k/uL VBG pH (7.31-7.41) VBG pCO2 (37-51) mmHg VBG HCO3 (24-28) mmol/L Sodium 134 L (137-145) mmol/L Potassium 4.8 (3.5-5.1) mmol/L Chloride 97 L (98-107) mmol/L Carbon Dioxide 19 L (22-30) mmol/L Anion Gap 18 mmol/L BUN 25 H (7-17) mg/dL Creatinine 0.76 (0.52-1.04) mg/dL Est GFR (CKD-EPI)AfAm >90 (>60 ml/min/1.73 sqM) Est GFR (CKD-EPI)NonAf 86 (>60 ml/min/1.73 sqM) Glucose 569 H* (74-99) mg/dL POC Glucose (mg/dL) (70-110) mg/dL POC Glu Deputy [employer] ID Plasma Lactic Acid Hector 1.5 (0.7-2.0) mmol/L Calcium 9.1 (8.4-10.2) mg/dL Total Bilirubin 1.1 (0.2-1.3) mg/dL AST 39 H (14-36) U/L ALT 27 (4-34) U/L Alkaline Phosphatase 144 H (38-126) U/L Troponin I (0.000-0.034) ng/mL Total Protein 7.2 (6.3-8.2) g/dL Albumin 4.5 (3.5-5.0) g/dL Amylase 85 (30-110) U/L Lipase 116 (23-300) U/L Urine Color Urine Appearance (Clear) Urine pH (5.0-8.0) Ur Specific [place] (1.001-1.035) Urine Protein (Negative) Urine Glucose (UA) (Negative) Urine Ketones (Negative) Urine Blood (Negative) Urine Nitrite (Negative) Urine Bilirubin (Negative) Urine Urobilinogen (<2.0) mg/dL Ur Leukocyte Esterase (Negative) Urine RBC (0-5) /hpf Urine WBC (0-5) /hpf Ur Squamous Epith Cells (0-4) /hpf Urine Mucus (None) /hpf Acetone, Qual (Negative) 04/14/22 04/14/22 04/14/22 Range/Units 16:17 16:40 17:43 WBC (3.8-10.6) k/uL RBC (3.80-5.40) m/uL Hgb (11.4-16.0) gm/dL Hct (34.0-46.0) % MCV (80.0-100.0) fL MCH (25.0-35.0) pg MCHC (31.0-37.0) g/dL RDW (11.5-15.5) % Plt Count (150-450) k/uL MPV Neutrophils % % Lymphocytes % % Monocytes % % Eosinophils % % Basophils % % Neutrophils # (1.3-7.7) k/uL Lymphocytes # (1.0-4.8) k/uL Monocytes # (0-1.0) k/uL Eosinophils # (0-0.7) k/uL Basophils # (0-0.2) k/uL VBG pH (7.31-7.41) VBG pCO2 (37-51) mmHg VBG HCO3 (24-28) mmol/L Sodium (137-145) mmol/L Potassium (3.5-5.1) mmol/L Chloride (98-107) mmol/L Carbon Dioxide (22-30) mmol/L Anion Gap mmol/L BUN (7-17) mg/dL Creatinine (0.52-1.04) mg/dL Est GFR (CKD-EPI)AfAm (>60 ml/min/1.73 sqM) Est GFR (CKD-EPI)NonAf (>60 ml/min/1.73 sqM) Glucose (74-99) mg/dL POC Glucose (mg/dL) 561 H (70-110) mg/dL POC Glu [employer] ID Johnson mendoza Plasma Lactic Acid Hector (0.7-2.0) mmol/L Calcium (8.4-10.2) mg/dL Total Bilirubin (0.2-1.3) mg/dL AST (14-36) U/L ALT (4-34) U/L Alkaline Phosphatase (38-126) U/L Troponin I <0.012 (0.000-0.034) ng/mL Total Protein (6.3-8.2) g/dL Albumin (3.5-5.0) g/dL Amylase (30-110) U/L Lipase (23-300) U/L Urine Color Colorless Urine Appearance Clear (Clear) Urine pH 5.5 (5.0-8.0) Ur Specific [place] 1.018 (1.001-1.035) Urine Protein Negative (Negative) Urine Glucose (UA) 4+ H (Negative) Urine Ketones 3+ H (Negative) Urine Blood Negative (Negative) Urine Nitrite Positive H (Negative) Urine Bilirubin Negative (Negative) Urine Urobilinogen <2.0 (<2.0) mg/dL Ur Leukocyte Esterase Negative (Negative) Urine RBC <1 (0-5) /hpf Urine WBC 4 (0-5) /hpf Ur Squamous Epith Cells 3 (0-4) /hpf Urine Mucus Rare H (None) /hpf Acetone, Qual (Negative) 04/14/22 04/14/22 04/14/22 Range/Units 17:51 17:51 20:23 WBC (3.8-10.6) k/uL RBC (3.80-5.40) m/uL Hgb (11.4-16.0) gm/dL Hct (34.0-46.0) % MCV (80.0-100.0) fL MCH (25.0-35.0) pg MCHC (31.0-37.0) g/dL RDW (11.5-15.5) % Plt Count (150-450) k/uL MPV Neutrophils % % Lymphocytes % % Monocytes % % Eosinophils % % Basophils % % Neutrophils # (1.3-7.7) k/uL Lymphocytes # (1.0-4.8) k/uL Monocytes # (0-1.0) k/uL Eosinophils # (0-0.7) k/uL Basophils # (0-0.2) k/uL VBG pH 7.34 (7.31-7.41) VBG pCO2 35 L (37-51) mmHg VBG HCO3 19 L (24-28) mmol/L Sodium (137-145) mmol/L Potassium (3.5-5.1) mmol/L Chloride (98-107) mmol/L Carbon Dioxide (22-30) mmol/L Anion Gap mmol/L BUN (7-17) mg/dL Creatinine (0.52-1.04) mg/dL Est GFR (CKD-EPI)AfAm (>60 ml/min/1.73 sqM) Est GFR (CKD-EPI)NonAf (>60 ml/min/1.73 sqM) Glucose (74-99) mg/dL POC Glucose (mg/dL) 586 H (70-110) mg/dL POC Glu [employer] ID Johnson mendoza Plasma Lactic Acid Hector (0.7-2.0) mmol/L Calcium (8.4-10.2) mg/dL Total Bilirubin (0.2-1.3) mg/dL AST (14-36) U/L ALT (4-34) U/L Alkaline Phosphatase (38-126) U/L Troponin I (0.000-0.034) ng/mL Total Protein (6.3-8.2) g/dL Albumin (3.5-5.0) g/dL Amylase (30-110) U/L Lipase (23-300) U/L Urine Color Urine Appearance (Clear) Urine pH (5.0-8.0) Ur Specific [place] (1.001-1.035) Urine Protein (Negative) Urine Glucose (UA) (Negative) Urine Ketones (Negative) Urine Blood (Negative) Urine Nitrite (Negative) Urine Bilirubin (Negative) Urine Urobilinogen (<2.0) mg/dL Ur Leukocyte Esterase (Negative) Urine RBC (0-5) /hpf Urine WBC (0-5) /hpf Ur Squamous Epith Cells (0-4) /hpf Urine Mucus (None) /hpf Acetone, Qual Positive (Negative) - EKG Data -: EKG Interpreted by Me EKG Comments: Sinus rhythm with occasional supraventricular premature complexes. Ventricular rate 91. [place] interval 165. QRS 96. QT 384. QTC 433. Normal axis. No ST-T deviation. Disposition Clinical Impression: DKA (diabetic ketoacidosis) Disposition: ADMITTED IP TO THIS [facility] Condition: Fair Time of Disposition: 20:05 Decision to Admit Reason: Admit from EC Decision Date: 04/14/22 Decision Time: 20:06
[2022-04-14 16:50] LABS: Basophils % (A) 0 %; Eosinophils % (A) 0 %; HCT 39.6 % (34.0-46.0); HGB 13.1 gm/dL (11.4-16.0); Lymphocytes # (A) 0.7 k/uL (1.0-4.8); Lymphocytes % (A) 7 %; MCH 32.5 pg (25.0-35.0); MCV 98.3 fL (80.0-100.0); Mean Platelet Volume 9.8; Monocytes # (A) 0.4 k/uL (0-1.0); Monocytes % (A) 4 %; Neutrophils # (A) 7.8 k/uL (1.3-7.7); Neutrophils % (A) 87 %; Platelet Count 184 k/uL (150-450); RBC 4.02 m/uL (3.80-5.40); RDW 13.9 % (11.5-15.5)
[2022-04-14 17:04] LABS: ALT 27 U/L (4-34); AST 39 U/L (14-36); African American GFR (CKD) >90 (>60 ml/min/1.73 sqM); Albumin 4.5 g/dL (3.5-5.0); Alkaline Phosphatase 144 U/L (38-126); Amylase 85 U/L (30-110); Anion Gap 18 mmol/L; Blood Urea Nitrogen 25 mg/dL (7-17); Calcium 9.1 mg/dL (8.4-10.2); Carbon Dioxide 19 mmol/L (22-30); Chloride 97 mmol/L (98-107); Lipase 116 U/L (23-300); Non-African American GFR(CKD) 86 (>60 ml/min/1.73 sqM); Potassium 4.8 mmol/L (3.5-5.1); Sodium 134 mmol/L (137-145); Total Bilirubin 1.1 mg/dL (0.2-1.3); Total Protein 7.2 g/dL (6.3-8.2)
[2022-04-14 17:25] LABS: Glucose 569 mg/dL (74-99)
[2022-04-14 17:46] LABS: Glucose,Whole Blood 561 mg/dL (70-110)
--- NOTE | 2022-04-14 17:47 | XR ---
EXAMINATION TYPE: XR KUB DATE OF EXAM: 04/14/2022 COMPARISON: NONE HISTORY: Abdominal pain TECHNIQUE: 2 views upright FINDINGS: No sign of intestinal obstruction or pneumoperitoneum. Fecal pattern is normal. Lung bases are clear. No pathologic calcifications over the kidneys. IMPRESSION: Nonacute abdomen.
[2022-04-14] MEDS ORDERED: INSULIN REGULAR BOLUS (FROM DRIP BAG) IV ONE (17:50)
[2022-04-14 18:00] LABS: Appearance,Urine Clear (Clear); Bilirubin,Urine Negative (Negative); Blood,Urine Negative (Negative); Color,Urine Colorless; Glucose,Urine (UA) 4+ (Negative); Leukocyte Esterase,Urine Negative (Negative); Mucus,Urine Rare /hpf; Nitrite,Urine Positive (Negative); PH, Urine 5.5 (5.0-8.0); Protein,Urine Negative (Negative); RBC,Urine <1 /hpf (0-5); Specific Gravity,Urine 1.018 (1.001-1.035); Squamous Epithelial Cell,Urine 3 /hpf (0-4); Urobilinogen,Urine <2.0 mg/dL (<2.0); WBC,Urine 4 /hpf (0-5)
[2022-04-14 18:06] LABS: VBG PH 7.34 (7.31-7.41)
[2022-04-14 18:12] LABS: Ketones,Urine 3+ (Negative)
[2022-04-14] MEDS ORDERED: SODIUM CHLORIDE 0.9% 1,000 ML IV ONE (18:20)
[2022-04-14] MEDS ORDERED: cefTRIAXone IN SWFI 1,000 MG/10 ML SYRINGE IVP STA (20:01)
[2022-04-14] MEDS ORDERED: NALOXONE 0.4 MG/ML 1 ML VIAL IV PRN (20:06)
[2022-04-14] MEDS: INSULIN REGULAR 100 UNIT in SODIUM CHLORIDE 0.9% 100 ML IV SCH (20:21)
[2022-04-14 20:25] LABS: Glucose,Whole Blood 586 mg/dL (70-110)
[2022-04-14 21:20] LABS: Glucose,Whole Blood 546 mg/dL (70-110)
[2022-04-14] MEDS ORDERED: Potassium Replacement Protocol 1 EACH MISC MISCELLANE PRN (22:16)
[2022-04-14] MEDS ORDERED: Magnesium Replacement Protocol 1 EACH MISC MISCELLANE PRN (22:16)
[2022-04-14] MEDS ORDERED: SODIUM CHLORIDE 0.9% 1,000 ML IV SCH (22:30)
[2022-04-14 22:40] LABS: Glucose,Whole Blood 333 mg/dL (70-110)
[2022-04-14] MEDS: SODIUM CHLORIDE 0.9% 1,000 ML IV SCH ×2 (22:42→23:33)
[2022-04-14 22:51] LABS: Phosphorus 4.1 mg/dL (2.5-4.5); Potassium 3.7 mmol/L (3.5-5.1)
[2022-04-14 23:12] LABS: Glucose,Whole Blood 296 mg/dL (70-110)
[2022-04-14] MEDS: D5-0.45% NACL WITH KCL 20MEQ/L 1,000 ML IV SCH (23:26)
[2022-04-15 00:10] LABS: Glucose,Whole Blood 224 mg/dL (70-110)
[2022-04-15 01:03] LABS: Glucose,Whole Blood 185 mg/dL (70-110)
[2022-04-15 02:07] LABS: Glucose,Whole Blood 138 mg/dL (70-110)
[2022-04-15 03:10] LABS: African American GFR (CKD) >90 (>60 ml/min/1.73 sqM); Anion Gap 13 mmol/L; Blood Urea Nitrogen 23 mg/dL (7-17); Carbon Dioxide 19 mmol/L (22-30); Chloride 101 mmol/L (98-107); Glucose 137 mg/dL (74-99); Non-African American GFR(CKD) 80 (>60 ml/min/1.73 sqM); Phosphorus 3.2 mg/dL (2.5-4.5); Potassium 3.6 mmol/L (3.5-5.1); Sodium 133 mmol/L (137-145)
--- NOTE | 2022-04-15 03:12 | P.HPIM ---
History of Present Illness H&P Date: 04/14/22 Chief Complaint: abd pain , nausea vomiting 62 year old female with IDDM type 1 patient comes in for abd pain diffuse in nature associated with nausea and vomiting her day started when she noticed that her blood sugar was low, and decided to skip on her morning dose of insulin , her sugar remained relatively low despite trying to drink orange juice, which initially corrected her sugar , but then dropped again and had to take glucose tablets. then after breakfast , she noticed increase in nausea and vomiting, along with abd pain , and elevated blood sugar for which she decided to come in for evaluation she denies any fever chills, URI symptoms , urinary changes , diarrhea or GI bleeding workup inthe ED confirmed DKA diagnosis Review of Systems Pertinent positives as noted in HPI. All other systems were reviewed and are negative Past Medical History Past Medical History: Coronary Artery Disease (CAD), Diabetes Mellitus, Hypertension History of Any Multi-Drug Resistant Organisms: None Reported Past Surgical History: Section, Heart Catheterization With Stent Past Anesthesia/Blood Transfusion Reactions: No Reported Reaction Date of Last Stent Placement:: 2021 Smoking Status: Former smoker - Past Family History Mother Additional Family Medical History / Comment(s): hodykins lymphoma Sister(s) Additional Family Medical History / Comment(s): hodykins lymphoma Medications and Allergies Home Medications Medication Instructions Recorded Confirmed Type Atorvastatin Calcium [Lipitor] 40 mg PO DIRECTED 09/21/21 04/14/22 History Gabapentin 800 mg PO DIRECTED 09/21/21 04/14/22 History Insulin Detemir (Levemir) [Levemir] 10 units SQ DIRECTED 09/21/21 04/14/22 History Insulin Lispro [Insulin Lispro See Protocol SQ DIRECTED 09/21/21 04/14/22 History Kwikpen U-100] amLODIPine [Norvasc] 5 mg PO DIRECTED 09/21/21 04/14/22 History lisinopriL [Prinivil] 20 mg PO DIRECTED 09/21/21 04/14/22 History DULoxetine HCL [Cymbalta] 60 mg PO DIRECTED 03/04/22 04/14/22 History Levothyroxine Sodium [Synthroid] 150 mcg PO DIRECTED 04/14/22 04/14/22 History Allergies Allergy/AdvReac Type Severity Reaction Status Date / Time No Known Allergies Allergy Verified 04/14/22 19:09 Physical Exam Vitals: Vital Signs Temp Pulse Resp BP Pulse Ox 04/14/22 18:54 99 18 135/62 99 04/14/22 17:45 100 18 160/70 99 04/14/22 15:38 97.6 F 90 20 196/96 98 Intake and Output 04/14/22 04/14/22 04/14/22 06:59 14:59 22:59 Other: Weight 99.79 kg Constitutional: No acute distress, conversant, pleasant Eyes: Anicteric sclerae, moist conjunctiva, Pupils equal round reactive to light ENMT: NC/AT Oropharynx clear, no erythema, or exudates Neck: Supple, no masses, or JVD No carotid bruits No thyromegaly Lungs: Clear to auscultation Clear to percussion Normal respiratory effort, no accessory muscle use Cardiovascular: Heart regular in rate and rhythm, No murmurs, gallops, or rubs No peripheral edema Abdominal: Soft Nontender, no guarding, rebound or rigidity Abdomen moving with respiration Normoactive bowel sounds No hepatomegaly, No splenomegaly No palpable mass No abdominal wall hernia noted Skin: Normal temperature, tone, texture, turgor No induration No subcutaneous nodules No rash, lesions No ulcers Extremities: No digital cyanosis No clubbing Pedal pulses intact and symmetrical Radial pulses intact and symmetrical No calf tenderness Psychiatric: Alert and oriented to person, place and time Neuro Muscles Strength 5/5 in all 4 extremities Sensation to light touch grossly present throughout Cranial nerves II-XII grossly intact Lymphatics: no palpable cervical or supraclavicular lymph nodes Results CBC & Chem 7: 04/14/22 16:17 04/14/22 22:10 Labs: Abnormal Lab Results - Last 24 Hours (Table) 04/14/22 04/14/22 04/14/22 Range/Units 16:17 16:17 16:40 Neutrophils # 7.8 H (1.3-7.7) k/uL Lymphocytes # 0.7 L (1.0-4.8) k/uL VBG pCO2 (37-51) mmHg VBG HCO3 (24-28) mmol/L Sodium 134 L (137-145) mmol/L Chloride 97 L (98-107) mmol/L Carbon Dioxide 19 L (22-30) mmol/L BUN 25 H (7-17) mg/dL Glucose 569 H* (74-99) mg/dL POC Glucose (mg/dL) (70-110) mg/dL AST 39 H (14-36) U/L Alkaline Phosphatase 144 H (38-126) U/L Urine Glucose (UA) 4+ H (Negative) Urine Ketones 3+ H (Negative) Urine Nitrite Positive H (Negative) Urine Mucus Rare H (None) /hpf 04/14/22 04/14/22 Range/Units 17:43 17:51 Neutrophils # (1.3-7.7) k/uL Lymphocytes # (1.0-4.8) k/uL VBG pCO2 35 L (37-51) mmHg VBG HCO3 19 L (24-28) mmol/L Sodium (137-145) mmol/L Chloride (98-107) mmol/L Carbon Dioxide (22-30) mmol/L BUN (7-17) mg/dL Glucose (74-99) mg/dL POC Glucose (mg/dL) 561 H (70-110) mg/dL AST (14-36) U/L Alkaline Phosphatase (38-126) U/L Urine Glucose (UA) (Negative) Urine Ketones (Negative) Urine Nitrite (Negative) Urine Mucus (None) /hpf Assessment and Plan Assessment: DKA initiated on DKA pathway with IV insulin drip with normal saline , then will be transitioned to D5 0.45 NS when blood sugar <300 electrolytes q2-4 hours blood sugar check q1hr ketones positive in urine acetone positive no leukocytosis no fever , doubt infectious underlying process follow up urine culture patient received one time dose rocephine in the ED for possible UTI , again patient denies urinary symptoms, will hold off antibiotics chronic condition s CAD , hypertension , resume home meds DVT PPX heparin sc tid full code
[2022-04-15 03:20] LABS: Glucose,Whole Blood 107 mg/dL (70-110)
[2022-04-15 04:04] LABS: Glucose,Whole Blood 89 mg/dL (70-110)
[2022-04-15 04:56] LABS: Glucose,Whole Blood 108 mg/dL (70-110)
[2022-04-15 06:05] LABS: Glucose,Whole Blood 148 mg/dL (70-110)
[2022-04-15] MEDS: INSULIN REGULAR 100 UNIT in SODIUM CHLORIDE 0.9% 100 ML IV SCH (06:26)
[2022-04-15] MEDS: D5-0.45% NACL WITH KCL 20MEQ/L 1,000 ML IV SCH (06:29)
[2022-04-15 06:38] LABS: African American GFR (CKD) >90 (>60 ml/min/1.73 sqM); Anion Gap 7 mmol/L; Blood Urea Nitrogen 23 mg/dL (7-17); Calcium 8.4 mg/dL (8.4-10.2); Carbon Dioxide 25 mmol/L (22-30); Chloride 101 mmol/L (98-107); Glucose 142 mg/dL (74-99); Non-African American GFR(CKD) >90 (>60 ml/min/1.73 sqM); Phosphorus 3.2 mg/dL (2.5-4.5); Potassium 4.5 mmol/L (3.5-5.1); Sodium 133 mmol/L (137-145)
[2022-04-15 06:59] LABS: Glucose,Whole Blood 147 mg/dL (70-110)
[2022-04-15] MEDS: HEPARIN SODIUM,PORCINE/PF 5,000 UNIT/0.5 ML SYRINGE SQ SCH ×3 (07:34→23:43)
[2022-04-15] MEDS ORDERED: DEXTROSE 50% SYRINGE 50 ML IVP PRN ×2 (07:56)
[2022-04-15] MEDS ORDERED: INSULIN DETEMIR (LEVEMIR) 100 UNIT/ML SYR SQ SCH (08:00)
[2022-04-15 08:06] LABS: Glucose,Whole Blood 132 mg/dL (70-110)
[2022-04-15 09:36] VITALS: BMI 34.4
[2022-04-15] MEDS: INSULIN DETEMIR (LEVEMIR) 100 UNIT/ML SYR SQ SCH (09:47)
[2022-04-15] MEDS: DULoxetine HCL 60 MG CAPSULE.DR PO SCH (10:57)
[2022-04-15] MEDS: LEVOTHYROXINE 75 MCG TAB PO SCH (10:57)
[2022-04-15] MEDS: lisinopriL 20 MG TAB PO SCH (10:57)
[2022-04-15] MEDS: GABAPENTIN 400 MG CAP PO SCH ×3 (10:57→21:10)
[2022-04-15 11:38] LABS: Glucose,Whole Blood 359 mg/dL (70-110)
[2022-04-15] MEDS: INSULIN ASPART (NovoLOG) 100 UNIT/ML VIAL SQ SCH ×5 (11:41→21:06)
[2022-04-15] MEDS ORDERED: MAG HYDROX/AL HYDROX/SIMETH 30 ML, HYOSCYAMINE ELIXIR 10 ML, LIDOCAINE VISCOUS 2% 10 ML PO ONE ×3 (11:50)
[2022-04-15] MEDS ORDERED: ONDANSETRON 4 MG/2 ML VIAL IVP PRN (11:51)
[2022-04-15] MEDS ORDERED: ACETAMINOPHEN TAB 325 MG TAB PO PRN (12:01)
--- NOTE | 2022-04-15 14:53 | P.PN ---
Subjective Progress Note Date: 04/15/22 Hospital course: Patient is a very pleasant 62-year-old female with a past medical history of CAD with stent, hypertension, hyperlipidemia, hypothyroidism and type 1 diabetes mellitus. She presented to the emergency department on 04/14/22 with a chief complaint of diffuse abdominal pain, nausea, and vomiting. Patient underwent full evaluation in the emergency department. She was found to be in DKA with a blood glucose of 442, bicarbonate 14, anion gap of 22. Acetone positive. KUB was completed negative showing nonacute abdomen. Patient was given a 2 L bolus of 0.9% normal saline and started on insulin infusion. She was admitted under the services and monitored closely throughout the night. Patient has had full resolution of previously reported abdominal pain, nausea, and vomiting. Patient is tolerating oral intake and anion gap closed with glucose 142, bicarb 25, and anion gap of 7. Insulin infusion was discontinued and patient started on glycemic protocol with NovoLog sliding scale, fixed dose NovoLog 4 units with each meal, and Levemir 10 units daily. Physical exam: Patient seen and fully evaluated at bedside this morning. Patient reports full resolution of previously reported abdominal pain, nausea, and vomiting. Patient reports only complaint this morning is acid reflux with burning sensation and reflux, states she typically gets this after excessive episodes of vomiting. Order placed for GI cocktail. Vital signs reviewed and stable. General: Nontoxic, no distress and appears stated age. Derm: Skin warm and dry, normal coloration for ethnicity. Head: Atraumatic, normocephalic and symmetric. Eyes: EOMs intact, no lid lag, and anicteric sclera Mouth: no lip lesions, mucus membranes moist Cardiovascular: regular rate and rhythm with normal S1S2, no murmur, positive posterior tibial pulses bilaterally, and cap refill < 2 seconds. Lungs: Respirations even, regular, and unlabored on room air. Lungs CTA bilaterally, no rhonchi, no rales, no wheezing, and no accessory muscle usage. Abdominal: soft, nontender to palpation, no guarding, no appreciable organomegaly Ext: ROM intact. No gross muscle atrophy, no edema, no contractures Neuro: Speech clear, face symmetrical and CN II-XII grossly intact with no noted focal neuro deficits Psych: Alert and oriented to person, place, time, and situation. Appropriate and pleasant affect. Assessment and Plan of Care: DKA in type I diabetic -Anion gap is closed, insulin infusion discontinued and patient started on glycemic protocol with NovoLog sliding scale, fixed dose NovoLog with 4 units with each meal, and Levemir 10 units daily. -We will continue to monitor closely -Continue heart healthy and carb consistent diet. -Consult to dietitian for diabetic teaching History of CAD with stent Hypertension Hyperlipidemia -Monitor vital signs and continue cardiac medication regimen consisting of amlodipine, atorvastatin, and lisinopril. Hypothyroidism -Continue daily medication regimen with levothyroxine. CODE STATUS: Full code DVT prophylaxis: Heparin Discussed with: Patient and RN Anticipated discharge date: Likely 1-[address]: Home A total of 35 minutes was spent on the care of this complex patient more than 50% of the time was spent in counseling and care coordination. Anderson Luke NP rendered care for this patient independently, reviewed the findings and plan as documented in the note above. I did not physically speak with or examine the patient on this date. Objective - Vital Signs Vital signs: Vital Signs Temp 97.8 F 04/15/22 07:31 Pulse 79 04/15/22 07:31 Resp 16 04/15/22 07:31 BP 134/66 04/15/22 07:31 Pulse Ox 97 04/15/22 07:31 FiO2 Intake & Output 04/14/22 04/15/22 04/15/22 18:59 06:59 18:59 Intake Total 76.052 0.391 Balance 76.052 0.391 Weight 99.79 kg 99.79 kg Intake: Intake, IV Titration 76.052 0.391 Amount Insulin Regular 100 unit 76.052 0.391 In Sodium Chloride 0.9% 100 ml @ 0.1 UNITS/KG/HR 10.079 mls/hr IV .Q10H2M SWETA Rx#:[id number] Other: Voiding Method Toilet # Voids 2 - Labs CBC & Chem 7: 04/14/22 16:17 04/15/22 06:02 Labs: Abnormal Lab Results - Last 24 Hours (Table) 04/14/22 04/14/22 04/14/22 Range/Units 16:17 16:17 16:40 Neutrophils # 7.8 H (1.3-7.7) k/uL Lymphocytes # 0.7 L (1.0-4.8) k/uL VBG pCO2 (37-51) mmHg VBG HCO3 (24-28) mmol/L Sodium 134 L (137-145) mmol/L Chloride 97 L (98-107) mmol/L Carbon Dioxide 19 L (22-30) mmol/L BUN 25 H (7-17) mg/dL Glucose 569 H* (74-99) mg/dL POC Glucose (mg/dL) (70-110) mg/dL AST 39 H (14-36) U/L Alkaline Phosphatase 144 H (38-126) U/L Urine Glucose (UA) 4+ H (Negative) Urine Ketones 3+ H (Negative) Urine Nitrite Positive H (Negative) Urine Mucus Rare H (None) /hpf 04/14/22 04/14/22 04/14/22 Range/Units 17:43 17:51 20:23 Neutrophils # (1.3-7.7) k/uL Lymphocytes # (1.0-4.8) k/uL VBG pCO2 35 L (37-51) mmHg VBG HCO3 19 L (24-28) mmol/L Sodium (137-145) mmol/L Chloride (98-107) mmol/L Carbon Dioxide (22-30) mmol/L BUN (7-17) mg/dL Glucose (74-99) mg/dL POC Glucose (mg/dL) 561 H 586 H (70-110) mg/dL AST (14-36) U/L Alkaline Phosphatase (38-126) U/L Urine Glucose (UA) (Negative) Urine Ketones (Negative) Urine Nitrite (Negative) Urine Mucus (None) /hpf 04/14/22 04/14/22 04/14/22 Range/Units 21:19 22:10 22:38 Neutrophils # (1.3-7.7) k/uL Lymphocytes # (1.0-4.8) k/uL VBG pCO2 (37-51) mmHg VBG HCO3 (24-28) mmol/L Sodium 136 L (137-145) mmol/L Chloride (98-107) mmol/L Carbon Dioxide 14 L (22-30) mmol/L BUN 23 H (7-17) mg/dL Glucose 442 H (74-99) mg/dL POC Glucose (mg/dL) 546 H 333 H (70-110) mg/dL AST (14-36) U/L Alkaline Phosphatase (38-126) U/L Urine Glucose (UA) (Negative) Urine Ketones (Negative) Urine Nitrite (Negative) Urine Mucus (None) /hpf 04/14/22 04/15/22 04/15/22 Range/Units 23:11 00:08 01:01 Neutrophils # (1.3-7.7) k/uL Lymphocytes # (1.0-4.8) k/uL VBG pCO2 (37-51) mmHg VBG HCO3 (24-28) mmol/L Sodium (137-145) mmol/L Chloride (98-107) mmol/L Carbon Dioxide (22-30) mmol/L BUN (7-17) mg/dL Glucose (74-99) mg/dL POC Glucose (mg/dL) 296 H 224 H 185 H (70-110) mg/dL AST (14-36) U/L Alkaline Phosphatase (38-126) U/L Urine Glucose (UA) (Negative) Urine Ketones (Negative) Urine Nitrite (Negative) Urine Mucus (None) /hpf 04/15/22 04/15/22 04/15/22 Range/Units 02:05 02:16 06:02 Neutrophils # (1.3-7.7) k/uL Lymphocytes # (1.0-4.8) k/uL VBG pCO2 (37-51) mmHg VBG HCO3 (24-28) mmol/L Sodium 133 L 133 L (137-145) mmol/L Chloride (98-107) mmol/L Carbon Dioxide 19 L (22-30) mmol/L BUN 23 H 23 H (7-17) mg/dL Glucose 137 H 142 H (74-99) mg/dL POC Glucose (mg/dL) 138 H (70-110) mg/dL AST (14-36) U/L Alkaline Phosphatase (38-126) U/L Urine Glucose (UA) (Negative) Urine Ketones (Negative) Urine Nitrite (Negative) Urine Mucus (None) /hpf 04/15/22 04/15/22 Range/Units 06:04 06:58 Neutrophils # (1.3-7.7) k/uL Lymphocytes # (1.0-4.8) k/uL VBG pCO2 (37-51) mmHg VBG HCO3 (24-28) mmol/L Sodium (137-145) mmol/L Chloride (98-107) mmol/L Carbon Dioxide (22-30) mmol/L BUN (7-17) mg/dL Glucose (74-99) mg/dL POC Glucose (mg/dL) 148 H 147 H (70-110) mg/dL AST (14-36) U/L Alkaline Phosphatase (38-126) U/L Urine Glucose (UA) (Negative) Urine Ketones (Negative) Urine Nitrite (Negative) Urine Mucus (None) /hpf
[2022-04-15 17:00] LABS: Glucose,Whole Blood 101 mg/dL (70-110)
[2022-04-15 20:44] LABS: Glucose,Whole Blood 125 mg/dL (70-110)
[2022-04-15] MEDS ORDERED: ATORVASTATIN 40 MG TAB PO SCH (21:00)
[2022-04-15] MEDS ORDERED: amLODIPine 5 MG TAB PO SCH (21:00)
[2022-04-16 06:06] LABS: Glucose,Whole Blood 129 mg/dL (70-110)
[2022-04-16] MEDS: INSULIN ASPART (NovoLOG) 100 UNIT/ML VIAL SQ SCH ×4 (06:26→12:16)
[2022-04-16] MEDS: LEVOTHYROXINE 75 MCG TAB PO SCH (06:30)
[2022-04-16] MEDS: INSULIN DETEMIR (LEVEMIR) 100 UNIT/ML SYR SQ SCH (06:32)
[2022-04-16] MEDS: lisinopriL 20 MG TAB PO SCH (07:35)
[2022-04-16] MEDS: HEPARIN SODIUM,PORCINE/PF 5,000 UNIT/0.5 ML SYRINGE SQ SCH (07:35)
[2022-04-16] MEDS: GABAPENTIN 400 MG CAP PO SCH (07:35)
[2022-04-16] MEDS: DULoxetine HCL 60 MG CAPSULE.DR PO SCH ×2 (07:35→07:38)
[2022-04-16 07:41] VITALS: PULSE 76; RESP 16; TEMP 97.8
[2022-04-16 08:38] LABS: HCT 36.4 % (34.0-46.0); HGB 12.3 gm/dL (11.4-16.0); MCH 32.8 pg (25.0-35.0); MCHC 33.7 g/dL (31.0-37.0); MCV 97.4 fL (80.0-100.0); Mean Platelet Volume 8.8; Platelet Count 197 k/uL (150-450); RBC 3.74 m/uL (3.80-5.40); RDW 14.1 % (11.5-15.5); WBC 6.5 k/uL (3.8-10.6)
[2022-04-16 08:55] LABS: Albumin 3.6 g/dL (3.5-5.0); Calcium 8.7 mg/dL (8.4-10.2); Magnesium 2.1 mg/dL (1.6-2.3); Potassium 4.5 mmol/L (3.5-5.1); Total Bilirubin 0.6 mg/dL (0.2-1.3); Total Protein 6.2 g/dL (6.3-8.2)
[2022-04-16 10:08] VITALS: BP 119/72
--- NOTE | 2022-04-16 10:52 | P.DS ---
Providers Date of admission: 04/14/22 20:30 Expected date of discharge: 04/16/22 Attending physician: Andriy Lau MD Primary care physician: Stated None Hospital Course: Discharge Diagnosis: DKA in type I diabetic. Patient initially required insulin infusion and after closure of anion gap and resolution of DKA patient was transitioned back on 6 dose NovoLog 4 units each meal, sliding scale, and Levemir 10 units daily. Glucose levels controlled greater than 24 hours. Patient medically stable for discharge at this time. She was seen and evaluated by voltage tester and educated on heart healthy and carb consistent food choices. Patient instructed to follow up outpatient with PCP in 1-2 days and encouraged to obtain referral to be evaluated by an adjunct professor of u.s. history. History of CAD with stent. Continue daily medication regimen with amlodipine, atorvastatin, and the lisinopril. Hypertension. Monitor vital signs and continue daily medication regimen with amlodipine and lisinopril. Hyperlipidemia. Continue daily medication regimen with atorvastatin. Hypothyroidism. Continue daily medication regimen with levothyroxine. Hospital Course: Patient is a very pleasant 62-year-old female with a past medical history of CAD with stent, hypertension, hyperlipidemia, hypothyroidism and type 1 diabetes mellitus. She presented to the emergency department on 04/14/22 with a chief complaint of diffuse abdominal pain, nausea, and vomiting. Patient underwent full evaluation in the emergency department. She was found to be in DKA with a blood glucose of 442, bicarbonate 14, anion gap of 22. Acetone positive. KUB was completed negative showing nonacute abdomen. Patient was given a 2 L bolus of 0.9% normal saline and started on insulin infusion. She was admitted under the services and monitored closely throughout the night. Patient has had full resolution of previously reported abdominal pain, nausea, and vomiting. Patient is tolerating oral intake and anion gap closed with glucose 142, bicarb 25, and anion gap of 7. Insulin infusion was discontinued and patient started on glycemic protocol with NovoLog sliding scale, fixed dose NovoLog 4 units with each meal, and Levemir 10 units daily. Glucose levels controlled for greater than 24 hours. Patient tolerating oral intake and denies any further episodes of abdominal pain, nausea, or vomiting. Patient medically stable for discharge at this time. She was seen and evaluated by voltage tester and educated on heart healthy and carb consistent food choices. Patient instructed to follow up outpatient with PCP in 1-2 days and encouraged to obtain referral to be evaluated by an adjunct professor of u.s. history. Physical exam: Vital signs reviewed and stable. General: Nontoxic, no distress and appears stated age. Derm: Skin warm and dry, normal coloration for ethnicity. Head: Atraumatic, normocephalic and symmetric. Eyes: EOMs intact, no lid lag, and anicteric sclera Mouth: no lip lesions, mucus membranes moist Cardiovascular: regular rate and rhythm with normal S1S2, no murmur, positive posterior tibial pulses bilaterally, and cap refill < 2 seconds. Lungs: Respirations even, regular, and unlabored on room air. Lungs CTA bilaterally, no rhonchi, no rales, no wheezing, and no accessory muscle usage. Abdominal: soft, nontender to palpation, no guarding, no appreciable organomegaly Ext: ROM intact. No gross muscle atrophy, no edema, no contractures Neuro: Speech clear, face symmetrical and CN II-XII grossly intact with no noted focal neuro deficits Psych: Alert and oriented to person, place, time, and situation. Appropriate and pleasant affect. A total of 35 minutes of time were spent preparing this complex discharge summary. Pt was discharged on 04/16/22 at 10:51 AM. Patient Condition at Discharge: Stable Plan - Discharge Summary Discharge Rx Participant: No New Discharge Prescriptions: Continue lisinopriL [Prinivil] 20 mg PO DAILY amLODIPine [Norvasc] 5 mg PO HS Gabapentin 800 mg PO TID Atorvastatin Calcium [Lipitor] 40 mg PO HS Insulin Detemir (Levemir) [Levemir] 10 units SQ BID Insulin Lispro [Insulin Lispro Kwikpen U-100] See Protocol SQ AC-TID DULoxetine HCL [Cymbalta] 60 mg PO DAILY Levothyroxine Sodium [Synthroid] 150 mcg PO DAILY Discharge Medication List Atorvastatin Calcium [Lipitor] 40 mg PO HS 09/21/21 [History] Gabapentin 800 mg PO TID 09/21/21 [History] Insulin Detemir (Levemir) [Levemir] 10 units SQ BID 09/21/21 [History] Insulin Lispro [Insulin Lispro Kwikpen U-100] See Protocol SQ AC-TID 09/21/21 [History] amLODIPine [Norvasc] 5 mg PO HS 09/21/21 [History] lisinopriL [Prinivil] 20 mg PO DAILY 09/21/21 [History] DULoxetine HCL [Cymbalta] 60 mg PO DAILY 03/04/22 [History] Levothyroxine Sodium [Synthroid] 150 mcg PO DAILY 04/14/22 [History] Follow up Appointment(s)/Referral(s): Kwaku Chacon MD [REFERRING] - 05/02/22 (With Dr. Thomson. Please call to see if there are any cancellations to get in [facility].) Patient Instructions/Handouts: Diabetic Ketoacidosis (DC) Activity/Diet/Wound Care/Special Instructions: Activity: As tolerated. Take breaks as needed. Diet: Heart healthy and carb consistent diet. Avoid salts, or foods with hidden salts such as canned or boxed foods and frozen dinners. Extra salt makes your heart work harder and traps the fluid in your body for longer. Special Instructions: Take all of your medications as directed and remember to keep all of your doctor's appointments and follow-up as needed. Continue to take her lispro 4 units daily with each meal along with sliding scale and Levemir 10 units nightly. Continue to monitor your blood glucose levels closely. Please follow-up with Dr. Chacon in 1-2 days for follow up and continued monitoring. IV recommend evaluation and referral for evaluation by adjunct professor of u.s. history. Thank you for allowing us to participate in your care, it was truly a pleasure having you for our patient!!! Discharge Disposition: HOME SELF-CARE
[2022-04-16 12:01] LABS: Glucose,Whole Blood 189 mg/dL (70-110)
== END 2022-04-16 13:10 | disposition home or self-care (01) | DRG 639 ==
LOC: EC 15:03 → 3SCARD 20:30
PROVIDERS: ADMIT Internal Medicine; ATTEND Internal Medicine
DX: E10.10 Type 1 diabetes mellitus with ketoacidosis without coma (principal); E10.43 Type 1 diabetes mellitus with diabetic autonomic (poly)neuropathy; I10 Essential (primary) hypertension; I25.10 Atherosclerotic heart disease of native coronary artery without angina pectoris; K31.84 Gastroparesis; E03.9 Hypothyroidism, unspecified; E78.5 Hyperlipidemia, unspecified; Z79.4 Long term (current) use of insulin; Z79.890 Hormone replacement therapy; Z87.891 Personal history of nicotine dependence; Z95.5 Presence of coronary angioplasty implant and graft; Z79.899 Other long term (current) drug therapy
CPT/HCPCS: 36415; 74018; 80048; 80051; 80053; 81001; 82009; 82150; 82565; 82803; 82947; 83036; 83605; 83690; 83735; 84100; 84484; 84520; 85025; 85027; 93005; 96374; 99285

== ENCOUNTER → 2022-04-18 | Outpatient (CLI) | payer BC ==
--- NOTE | 2022-04-19 04:02 | MR ---
EXAMINATION TYPE: MR lumbar spine wo con DATE OF EXAM: 04/18/2022 COMPARISON: None HISTORY: Low back pain Multiplanar multiecho imaging of the lumbar spine performed with no contrast. Normal alignment. There is mild degenerative disc space narrowing throughout the lumbar spine. There is mild posterior disc bulging from L1 to L5. There is developmentally adequate spinal canal and no s kathy stenosis. Sacroiliac joints are intact. No lumbar paraspinal mass. No focal bone destruction. T here is a moderate anterior lumbar disc herniation at L5-S1. There is transitional vertebra of S1. Th e neural foramina are fairly well maintained. IMPRESSION: Mild multilevel posterior disc bulging. No spinal stenosis. No fracture.
== END | disposition home or self-care (01) ==
LOC: RADMRIMAIN 20:00
PROVIDERS: ATTEND Specialist
DX: M51.36 Other intervertebral disc degeneration, lumbar region (principal); M51.27 Other intervertebral disc displacement, lumbosacral region; S72.91XA Unspecified fracture of right femur, initial encounter for closed fracture
CPT/HCPCS: 72148

== ENCOUNTER 2022-05-01 03:40 | Observation (INO) | payer BC ==
[2022-05-01 04:07] LABS: Basophils % (A) 1 %; Eosinophils # (A) 0.1 k/uL (0-0.7); Eosinophils % (A) 2 %; Lymphocytes # (A) 1.3 k/uL (1.0-4.8); Lymphocytes % (A) 31 %; MCH 33.2 pg (25.0-35.0); MCHC 35.3 g/dL (31.0-37.0); Mean Platelet Volume 8.5; Monocytes # (A) 0.2 k/uL (0-1.0); Monocytes % (A) 4 %; Neutrophils # (A) 2.6 k/uL (1.3-7.7); Neutrophils % (A) 60 %; Platelet Count 166 k/uL (150-450); RBC 3.62 m/uL (3.80-5.40); RDW 13.6 % (11.5-15.5); WBC 4.3 k/uL (3.8-10.6)
[2022-05-01 04:16] LABS: INR 0.9 (<1.2); Partial Thromboplastin Time 23.9 sec (22.0-30.0); Prothrombin Time 9.9 sec (9.0-12.0)
[2022-05-01 04:19] LABS: ALT 41 U/L (4-34); AST 77 U/L (14-36); African American GFR (CKD) >90 (>60 ml/min/1.73 sqM); Albumin 3.9 g/dL (3.5-5.0); Alkaline Phosphatase 200 U/L (38-126); Anion Gap 7 mmol/L; Blood Urea Nitrogen 30 mg/dL (7-17); Calcium 9.4 mg/dL (8.4-10.2); Carbon Dioxide 26 mmol/L (22-30); Chloride 103 mmol/L (98-107); Glucose 164 mg/dL (74-99); Magnesium 2.2 mg/dL (1.6-2.3); Non-African American GFR(CKD) 84 (>60 ml/min/1.73 sqM); Potassium 3.9 mmol/L (3.5-5.1); Sodium 136 mmol/L (137-145); Total Bilirubin 0.3 mg/dL (0.2-1.3); Total Protein 6.8 g/dL (6.3-8.2)
--- NOTE | 2022-05-01 05:17 | XR ---
EXAMINATION TYPE: XR chest 2V DATE OF EXAM: 05/01/2022 COMPARISON: 09/21/2021 HISTORY: Chest pain TECHNIQUE: FINDINGS: Heart is normal. Lungs are clear. Diaphragm is normal. Bony thorax appears normal. IMPRESSION: Normal chest. No change.
[2022-05-01] MEDS ORDERED: ASPIRIN 325 MG TAB PO STA (06:27)
[2022-05-01] MEDS ORDERED: MORPHINE SULFATE 4 MG/ML SYRINGE IVP STA (06:27)
--- NOTE | 2022-05-01 06:39 | ED ---
Chest Pain HPI - General Chief Complaint: Chest Pain Stated Complaint: Chest Pain Time Seen by Provider: 05/01/22 06:26 Source: patient, family, RN notes reviewed Mode of arrival: wheelchair Limitations: no limitations - History of Present Illness Initial Comments: This is a 62-year-old female who presents to the emergency department with chest pain. States that the pain started at approximately 2-2:30 AM and woke her from sleep. Describes this as a burning and stabbing pain in the left side of her chest. She does report pain in the neck and left arm as well. She has a history of GERD, but states that this feels much different. She did have a cardiac workup here in September, which was found to be negative. She also had an echocardiogram in August revealing preserved ejection fraction. States that the pain today is very different from those visits. At that time, it was an intermittent pain, and this pain is now constant. She did have cardiac stents placed several years ago, and states that the pain feels very similar. She does not currently follow with a girls tennis coach, she states that she's been unable to get an appointment. Denies any difficulty breathing, nausea, or vomiting. Also denies any recent exertional activity or lifting. Denies any fevers, chills, sore throat, cough, dyspnea, palpitations, abdominal pain, nausea, vomiting, diarrhea, back pain, or headaches. MD Complaint: chest pain Onset: awoke with symptoms Pain Location: left chest Pain Radiation: LUE Consistency: constant - Related Data Home Medications Medication Instructions Recorded Confirmed Atorvastatin Calcium [Lipitor] 40 mg PO HS 09/21/21 04/15/22 Gabapentin 800 mg PO TID 09/21/21 04/15/22 Insulin Detemir (Levemir) [Levemir] 10 units SQ BID 09/21/21 04/15/22 Insulin Lispro [Insulin Lispro See Protocol SQ AC-TID 09/21/21 04/15/22 Julio U-100] amLODIPine [Norvasc] 5 mg PO HS 09/21/21 04/15/22 lisinopriL [Prinivil] 20 mg PO DAILY 09/21/21 04/15/22 DULoxetine HCL [Cymbalta] 60 mg PO DAILY 03/04/22 04/15/22 Levothyroxine Sodium [Synthroid] 150 mcg PO DAILY 04/14/22 04/15/22 Allergies Allergy/AdvReac Type Severity Reaction Status Date / Time No Known Allergies Allergy Verified 05/01/22 03:46 Review of Systems ROS Statement: Those systems with pertinent positive or pertinent negative responses have been documented in the HPI. ROS Other: All systems not noted in ROS Statement are negative. EKG Findings - EKG Comments: EKG Findings:: Sinus rhythm. Ventricular rate 72 bpm, TN interval 132 ms, QRS duration 109 ms, QTC 423 ms. EKG interpreted by myself and ED attending. - EKG Results: EKG: interpreted by ERMD Past Medical History Past Medical History: Coronary Artery Disease (CAD), Diabetes Mellitus, Hypertension History of Any Multi-Drug Resistant Organisms: None Reported Past Surgical History: Section, Heart Catheterization With Stent Additional Past Surgical History / Comment(s): ortho surgeries Past Anesthesia/Blood Transfusion Reactions: No Reported Reaction Date of Last Stent Placement:: 2021 Past Psychological History: No Psychological Hx Reported Smoking Status: Former smoker Past Alcohol Use History: None Reported Past Drug Use History: Marijuana - Past Family History Mother Additional Family Medical History / Comment(s): hodykins lymphoma Sister(s) Additional Family Medical History / Comment(s): hodykins lymphoma General Exam Limitations: no limitations General appearance: alert, in distress Head exam: Present: atraumatic, normocephalic, normal inspection Neck exam: Present: normal inspection. Absent: tenderness, meningismus, lymphadenopathy Respiratory exam: Present: normal lung sounds bilaterally. Absent: respiratory distress, wheezes, rales, rhonchi, stridor, chest wall tenderness Cardiovascular Exam: Present: regular rate, normal rhythm, normal heart sounds. Absent: systolic murmur, diastolic murmur, rubs, gallop, clicks Neurological exam: Present: alert, oriented X3, CN II-XII intact Psychiatric exam: Present: normal affect, normal mood Skin exam: Present: warm, dry, intact, normal color. Absent: rash Course Vital Signs 05/01/22 05/01/22 05/01/22 03:42 07:29 08:16 Temperature 98.5 F 97.6 F Pulse Rate 80 67 70 Respiratory 18 18 Rate Blood Pressure 174/91 144/76 136/76 O2 Sat by Pulse 100 98 Oximetry Chest Pain MDM - MDM This is a 62-year-old female who presents to the emergency department with chest pain. Patient is grabbing her chest in the emergency department due to pain. Given that her symptoms are different from her last cardiac workup and more consistent with the prior pain that required stent placement, this is more concerning for a cardiac process. Lab work was virtually nonactionable aside from a mildly elevated d-dimer. Second troponin is negative. She does have elevated liver enzymes, which are fairly consistent with prior values. My interpretation of her chest x-ray reveals no localized consolidations or infiltrates. Computed tomography angiogram of the chest was obtained due to the symptoms and elevated d-dimer. My interpretation of this identifies no signs of localized consolidations or infiltrates. Patient was evaluated in the [facility] room initially, and given that we were unable to give her nitroglycerin without having her on a monitor, she was subsequently given 325 mg of aspirin and 4 mg of morphine. On reevaluation, patient had no improvement in symptoms following aspirin and morphine. She was given 2 doses of nitroglycerin, at least 5 minutes apart, which she states did improve her symptoms in both severity and frequency. Due to the change in chest pain, cardiac history, and relief with nitro, will admit to medicine with cardiology consult. This case was discussed in detail with the attending ED physician. Presentation, findings, and treatment plan discussed in detail as well. Disposition Clinical Impression: Chest pain, Hx of heart artery stent Disposition: ADMITTED IP TO THIS HOSP Referrals: Johnosn Thomson MD [Primary Care Provider] - 1-2 days
[2022-05-01] MEDS ORDERED: NITROGLYCERIN SL TABS 0.4 MG TAB SUBLINGUAL STA ×2 (07:36→07:50)
[2022-05-01 10:27] LABS: Amylase 82 U/L (30-110); Lipase 357 U/L (23-300)
--- NOTE | 2022-05-01 10:44 | CT ---
EXAMINATION TYPE: CT chest angio for PE DATE OF EXAM: 05/01/2022 COMPARISON: Same day chest x-ray. HISTORY: Chest pain, elevated d-dimer and difficulty breathing. CT DLP: 391.3 mGycm. Automated Exposure Control for Dose Reduction was Utilized. CONTRAST: CTA scan of the thorax is performed with IV Contrast, patient injected with 80ml mL of Isovue 370, pu lmonary embolism protocol. MIP Images are created on CT scanner and reviewed. FINDINGS: LUNGS: Significant respiratory motion artifact compromise. This limits evaluation for subcentimeter n odules. Dependent atelectasis. Possible mild diffuse edema versus product of poor inspiration. The la tter is favored. Elevated left hemidiaphragm redemonstrated. No suspicious focal consolidation. No pl eural effusion or pneumothorax seen bilaterally. No concerning masses. MEDIASTINUM: There is satisfactory enhancement of the pulmonary artery and its branches, there is no CT evidence for pulmonary embolism. There are no greater than 1 cm hilar or mediastinal lymph nodes. No cardiomegaly or pericardial effusion is seen. Coronary artery calcification and/or stents are p resent. OTHER: No additional significant abnormality is seen. IMPRESSION: Suboptimal study without acute pulmonary embolism. No acute consolidation. Respiratory mo tion artifact compromise is noted.
[2022-05-01] MEDS ORDERED: ONDANSETRON 4 MG/2 ML VIAL IVP PRN (10:58)
[2022-05-01] MEDS ORDERED: ACETAMINOPHEN TAB 325 MG TAB PO PRN (10:58)
[2022-05-01] MEDS ORDERED: NALOXONE 0.4 MG/ML 1 ML VIAL IV PRN (10:58)
[2022-05-01] MEDS ORDERED: IBUPROFEN 400 MG TAB PO PRN (10:58)
[2022-05-01] MEDS ORDERED: KETOROLAC 15 MG/ML 1 ML VIAL IVP PRN (10:58)
--- NOTE | 2022-05-01 13:04 | US ---
EXAMINATION TYPE: US abdomen limited DATE OF EXAM: 05/01/2022 COMPARISON: NONE CLINICAL HISTORY: elevated LFTs. vague chest pain. Chest pain, elevated LFT's TECHNIQUE: Multiple sonographic images of the right upper quadrant are obtained. FINDINGS: EXAM MEASUREMENTS: Liver Length: 19.6 cm Gallbladder Wall: 0.4 cm CBD: 0.5 cm Right Kidney: 11.1 x 4.3 x 5.2 cm [employer] CLERK NOTES: Pancreas: Obscured by bowel gas Liver: Enlarged, heterogeneous, difficult to penetrate Gallbladder: Probable polyps visualized. The shadowing gallbladder stones are identified. Evidence for sonographic Antunez's sign: No CBD: wnl Right Kidney: wnl, lower pole gassed out IMPRESSION: 1. Hepatomegaly with mild to moderate fatty infiltration. 2. Gallbladder polyps.
[2022-05-01] MEDS ORDERED: DEXTROSE 50% SYRINGE 50 ML IVP PRN ×2 (13:40)
--- NOTE | 2022-05-01 13:43 | P.HPIM ---
History of Present Illness H&P Date: 05/01/22 Chief Complaint: chest pain Patient is a 62-year-old female with a past medical history of hypertension, hypothyroidism, diabetes, fibromyalgia, coronary artery disease status post stents presents to the ED with burning sharp chest pain. Patient says that her chest pain is left-sided and radiates to her neck as well as left shoulder. Patient states that the chest pain woke her up from her sleep. Patient says that when she came to the ED her chest pain was a 6 out of 10. After receiving morphine and nitro her chest pain came down to a 4 out of 10. Patient appears comfortable in bed. Patient's troponins are negative 2. EKG shows no ischemic changes. Patient admitted for cardiac evaluation. Review of Systems 10 ROS reviewed and are negative except as noted in HPI Past Medical History Past Medical History: Coronary Artery Disease (CAD), Diabetes Mellitus, Hypertension History of Any Multi-Drug Resistant Organisms: None Reported Past Surgical History: Section, Heart Catheterization With Stent Additional Past Surgical History / Comment(s): ortho surgeries Past Anesthesia/Blood Transfusion Reactions: No Reported Reaction Date of Last Stent Placement:: 2021 Past Psychological History: No Psychological Hx Reported Smoking Status: Former smoker Past Alcohol Use History: None Reported Past Drug Use History: Marijuana - Past Family History Mother Additional Family Medical History / Comment(s): hodykins lymphoma Sister(s) Additional Family Medical History / Comment(s): hodykins lymphoma Medications and Allergies Home Medications Medication Instructions Recorded Confirmed Type Atorvastatin Calcium [Lipitor] 40 mg PO HS 09/21/21 05/01/22 History Gabapentin 800 mg PO TID 09/21/21 05/01/22 History Insulin Detemir (Levemir) [Levemir] 10 units SQ BID 09/21/21 05/01/22 History Insulin Lispro [Insulin Lispro See Protocol SQ AC-TID 09/21/21 05/01/22 History Kwikpen U-100] amLODIPine [Norvasc] 5 mg PO HS 09/21/21 05/01/22 History lisinopriL [Prinivil] 20 mg PO DAILY 09/21/21 05/01/22 History DULoxetine HCL [Cymbalta] 60 mg PO DAILY 03/04/22 05/01/22 History Levothyroxine Sodium [Synthroid] 150 mcg PO DAILY 04/14/22 05/01/22 History Allergies Allergy/AdvReac Type Severity Reaction Status Date / Time No Known Allergies Allergy Verified 05/01/22 11:36 Physical Exam Osteopathic Statement: *. No significant issues noted on an osteopathic structural exam other than those noted in the History and Physical/Consult. Vitals: Vital Signs Temp Pulse Resp BP Pulse Ox 05/01/22 08:16 70 136/76 05/01/22 07:29 97.6 F 67 18 144/76 98 05/01/22 03:42 98.5 F 80 18 174/91 100 Intake and Output 04/30/22 05/01/22 05/01/22 22:59 06:59 14:59 Other: Weight 99.79 kg General: [Alert and oriented, well nourished, no acute distress]. Eye: [PERRL, EOMI, normal conjunctiva]. HENT: [Normocephalic, clear tympanic membranes, normal hearing, moist oral mucosa, no scleral icterus, no sinus tenderness]. Neck: [Supple, non-tender, no carotid bruits, no JVD, no lymphadenopathy]. Lungs: [Clear to auscultation and percussion, non-labored respiration]. Heart: [Normal rate, regular rhythm, no murmur, gallop or edema]. Abdomen: [Soft, non-tender, non-distended, normal bowel sounds, no masses]. Musculoskeletal: [Normal range of motion and strength, no tenderness or swelling]. Skin: [Skin is warm, dry and pink, no rashes or lesions]. Neurologic: [Awake, alert, and oriented X3, CN II-XII intact]. Psychiatric: [Cooperative, appropriate mood and affect]. Results CBC & Chem 7: 05/01/22 03:58 05/01/22 03:58 Labs: Abnormal Lab Results - Last 24 Hours (Table) 05/01/22 05/01/22 05/01/22 Range/Units 03:58 03:58 03:58 RBC 3.62 L (3.80-5.40) m/uL D-Dimer (<0.60) mg/L FEU Sodium 136 L (137-145) mmol/L BUN 30 H (7-17) mg/dL Glucose 164 H (74-99) mg/dL AST 77 H (14-36) U/L ALT 41 H (4-34) U/L Alkaline Phosphatase 200 H (38-126) U/L Lipase 357 H (23-300) U/L 05/01/22 Range/Units 08:40 RBC (3.80-5.40) m/uL D-Dimer 0.61 H (<0.60) mg/L FEU Sodium (137-145) mmol/L BUN (7-17) mg/dL Glucose (74-99) mg/dL AST (14-36) U/L ALT (4-34) U/L Alkaline Phosphatase (38-126) U/L Lipase (23-300) U/L Assessment and Plan Assessment: Atypical chest pain Trend troponins Check echocardiogram Resume aspirin and statin Cardiology consult D-dimer was elevated. CTA chest negative for pulmonary embolism Elevated LFTs likely due to hepatic liver Right upper quadrant ultrasound shows hepatomegaly with fatty infiltration Patient is asymptomatic Follow up outpatient Nonspecific elevated lipase Patient has no epigastric pain so negative titers ruled out Trend lipase Diabetes mellitus Resume Levemir and sliding so insulin Hypothyroidism Resume Synthroid Fibromyalgia Resume Cymbalta and gabapentin CODE STATUS:full code DVT prophylaxis: lovenox Discussed with: Patient, ER, rn Anticipated length of stay < than [address]: home A total of 50 minutes was spent on the care of this complex patient more than 50% of the time was spent in counseling and care coordination.
[2022-05-01 14:03] LABS: Glucose,Whole Blood 288 mg/dL (70-110)
[2022-05-01] MEDS: INSULIN ASPART (NovoLOG) 100 UNIT/ML VIAL SQ SCH ×4 (14:42→22:27)
--- NOTE | 2022-05-01 14:45 | P.CRDCN ---
History of Present Illness Consult date: 05/01/22 Consult reason: chest pain History of present illness: HISTORY OF PRESENT ILLNESS: This is a 62-year-old female with a past medical history significant for hypertension diabetes, and hypothyroidism. 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 We have been asked to see the patient in consultation for chest pain. Patient examined at the bedside. Patient presented to the emergency center due to chest pain started around 2 or 2:30 in the morning and woke her from sleep. It was a burning type and stabbing type pain in the left side of her chest along with pain in the neck and left arm. She denies having any abdom inal pain, nausea or vomiting, fever or chills, shortness of breath. Initial blood pressure 174/91. * EKG reveals sinus mechanism with no signs of acute ischemia * Chest xray negative for acute process * CBC is unremarkable. Sodium 136, BUN 30 creatinine 0.77. Potassium 3.9. Troponin negative 3 draws. AST 77, ALT 41, alkaline phosphatase 200. Lipase 357. * CT angiogram was suboptimal without acute pulmonary embolism. No acute consolidation . Current home cardiac medications include metoprolol tartrate 59 g twice a day, amlodipine 5 mg at night, Lipitor 40 mg at night, lisinopril 20 mg daily REVIEW OF SYSTEMS: At the time of my exam: CONSTITUTIONAL: Denies fever or chills. HEENT: Denies blurred vision, vision changes, or eye pain. Denies hemoptysis CARDIOVASCULAR: Denies chest pain. Denies orthopnea. Denies PND. Denies palpitations RESPIRATORY: Denies shortness of breath. GASTROINTESTINAL: Denies abdominal pain. Denies nausea or vomiting. HEMATOLOGIC: Denies bleeding disorders. GENITOURINARY: Denies any blood in urine. SKIN: Denies pruitis. Denies rash. PHYSICAL EXAM: VITAL SIGNS: Reviewed. GENERAL: Well-developed in no acute distress. HEENT: Head is normocephalic. Pupils are equal, round. Sclerae anicteric. Mucous membranes of the mouth are moist. Neck supple. No JVD or thyromegaly LUNGS: Respirations even and unlabored. Lungs essentially clear to auscultation bilaterally. HEART: Regular rate and rhythm. S1 and S2 heard. ABDOMEN: Soft. Nondistended. Nontender. EXTREMITIES: Normal range of motion. No clubbing or cyanosis. Peripheral pulses intact. Trace bilateral lower extremity edema NEUROLOGIC: Awake and alert. Oriented x 3. ASSESSMENT: Chest pain, acute coronary syndrome ruled out Elevated d-dimer, pulmonary embolism ruled out Hypertension Hyperlipidemia Diabetes Hypothyroidism PLAN: Obtain 2-D echocardiogram and Doppler study to assess cardiac structure and function Scheduled patient for stress echocardiogram tomorrow Continue patient on home cardiac medications Further recommendations as patient progresses PICU kindly for this consultation. Nurse practitioner note has been reviewed by physician. Signing provider agrees with the documented findings, assessment, and plan of care. Past Medical History Past Medical History: Coronary Artery Disease (CAD), Diabetes Mellitus, Hypertension History of Any Multi-Drug Resistant Organisms: None Reported Past Surgical History: Section, Heart Catheterization With Stent Additional Past Surgical History / Comment(s): ortho surgeries Past Anesthesia/Blood Transfusion Reactions: No Reported Reaction Date of Last Stent Placement:: 2021 Past Psychological History: No Psychological Hx Reported Smoking Status: Former smoker Past Alcohol Use History: None Reported Past Drug Use History: Marijuana - Past Family History Mother Additional Family Medical History / Comment(s): hodykins lymphoma Sister(s) Additional Family Medical History / Comment(s): hodykins lymphoma Medications and Allergies Home Medications Medication Instructions Recorded Confirmed Type Atorvastatin Calcium [Lipitor] 40 mg PO HS 09/21/21 05/01/22 History Gabapentin 800 mg PO TID 09/21/21 05/01/22 History Insulin Detemir (Levemir) [Levemir] 10 units SQ BID 09/21/21 05/01/22 History Insulin Lispro [Insulin Lispro See Protocol SQ AC-TID 09/21/21 05/01/22 History Kwikpen U-100] amLODIPine [Norvasc] 5 mg PO HS 09/21/21 05/01/22 History lisinopriL [Prinivil] 20 mg PO DAILY 09/21/21 05/01/22 History DULoxetine HCL [Cymbalta] 60 mg PO DAILY 03/04/22 05/01/22 History Levothyroxine Sodium [Synthroid] 150 mcg PO DAILY 04/14/22 05/01/22 History Allergies Allergy/AdvReac Type Severity Reaction Status Date / Time No Known Allergies Allergy Verified 05/01/22 11:36 Physical Exam Vitals: Vital Signs Temp Pulse Resp BP Pulse Ox 05/01/22 08:16 70 136/76 05/01/22 07:29 97.6 F 67 18 144/76 98 05/01/22 03:42 98.5 F 80 18 174/91 100 Intake and Output 04/30/22 05/01/22 05/01/22 22:59 06:59 14:59 Other: Weight 99.79 kg Results 05/01/22 03:58 05/01/22 03:58 Cardiac Enzymes 05/01/22 05/01/22 05/01/22 Range/Units 03:58 03:58 06:32 AST 77 H (14-36) U/L Troponin I <0.012 <0.012 (0.000-0.034) ng/mL Coagulation 05/01/22 Range/Units 03:58 PT 9.9 (9.0-12.0) sec APTT 23.9 (22.0-30.0) sec CBC 05/01/22 Range/Units 03:58 WBC 4.3 (3.8-10.6) k/uL RBC 3.62 L (3.80-5.40) m/uL Hgb 12.0 (11.4-16.0) gm/dL Hct 34.0 (34.0-46.0) % Plt Count 166 (150-450) k/uL Comprehensive Metabolic Panel 05/01/22 Range/Units 03:58 Sodium 136 L (137-145) mmol/L Potassium 3.9 (3.5-5.1) mmol/L Chloride 103 (98-107) mmol/L Carbon Dioxide 26 (22-30) mmol/L BUN 30 H (7-17) mg/dL Creatinine 0.77 (0.52-1.04) mg/dL Glucose 164 H (74-99) mg/dL Calcium 9.4 (8.4-10.2) mg/dL AST 77 H (14-36) U/L ALT 41 H (4-34) U/L Alkaline Phosphatase 200 H (38-126) U/L Total Protein 6.8 (6.3-8.2) g/dL Albumin 3.9 (3.5-5.0) g/dL Current Medications Generic Name Dose Route Start Last Admin Trade Name Freq PRN Reason Stop Dose Admin Acetaminophen 650 mg 05/01/22 10:58 Acetaminophen Tab 325 Mg Tab PO Q6HR PRN Mild Pain or Fever > 100.5 Ibuprofen 400 mg 05/01/22 10:58 Ibuprofen 400 Mg Tab PO Q6HR PRN Mild Pain or Fever > 100.5 Ketorolac Tromethamine 15 mg 05/01/22 10:58 Ketorolac 15 Mg/Ml 1 Ml Vial IVP 05/04/22 10:59 Q6HR PRN Moderate Pain (Scale 4 to 6) Naloxone HCl 0.2 mg 05/01/22 10:58 Naloxone 0.4 Mg/Ml 1 Ml Vial IV Q2M PRN Opioid Reversal Ondansetron HCl 4 mg 05/01/22 10:58 Ondansetron 4 Mg/2 Ml Vial IVP Q8HR PRN Nausea And Vomiting Intake and Output 04/30/22 05/01/22 05/01/22 22:59 06:59 14:59 Other: Weight 99.79 kg 05/01/22 03:58 05/01/22 03:58
[2022-05-01] MEDS: GABAPENTIN 400 MG CAP PO SCH ×2 (16:09→22:41)
[2022-05-01] MEDS ORDERED: INSULIN ASPART (NovoLOG) 100 UNIT/ML VIAL SQ SCH (17:30)
[2022-05-01 17:56] LABS: Glucose,Whole Blood 363 mg/dL (70-110)
[2022-05-01] MEDS ORDERED: ATORVASTATIN 40 MG TAB PO SCH (21:00)
[2022-05-01] MEDS ORDERED: amLODIPine 5 MG TAB PO SCH (21:00)
[2022-05-01 21:48] LABS: Glucose,Whole Blood 130 mg/dL (70-110)
[2022-05-01] MEDS: INSULIN DETEMIR (LEVEMIR) 100 UNIT/ML SYR SQ SCH (22:42)
[2022-05-02 06:00] LABS: Glucose,Whole Blood 330 mg/dL (70-110)
[2022-05-02] MEDS: INSULIN DETEMIR (LEVEMIR) 100 UNIT/ML SYR SQ SCH (06:02)
[2022-05-02] MEDS: INSULIN ASPART (NovoLOG) 100 UNIT/ML VIAL SQ SCH ×4 (06:03→13:29)
[2022-05-02] MEDS ORDERED: LEVOTHYROXINE 75 MCG TAB PO SCH (06:30)
[2022-05-02 07:58] VITALS: RESP 18
[2022-05-02] MEDS: GABAPENTIN 400 MG CAP PO SCH (08:28)
[2022-05-02] MEDS ORDERED: ENOXAPARIN 40 MG/0.4 ML SYRINGE SQ SCH (09:00)
[2022-05-02] MEDS ORDERED: ASPIRIN 81 MG PO SCH (09:00)
[2022-05-02] MEDS ORDERED: DULoxetine HCL 60 MG CAPSULE.DR PO SCH (09:00)
[2022-05-02] MEDS ORDERED: lisinopriL 20 MG TAB PO SCH (09:00)
--- NOTE | 2022-05-02 10:25 | CA ---
Transthoracic Echo Report Name: Elda Gonzalez Age: 62 Gender: F : 1960 Exam Date: 05/02/2022 08:41 Exam Location: [facility] Ht (in): 68 Wt (lb): 220 Ordering Physician: Angela Davidson Attending/Referring Phys: [id number], Lety Sales Person Di Virk RDCS Procedure CPT: Indications: LVF Cardiac Hx: Technical Quality: Contrast 1: Total Dose (mL): Contrast 2: Total Dose (mL): MEASUREMENTS (Male / Female) Normal Values 2D ECHO LV Diastolic Diameter PLAX 4.9 cm 4.2 - 5.9 / 3.9 - 5.3 cm LV Systolic Diameter PLAX 4.6 cm IVS Diastolic Thickness 1.4 cm 0.6 - 1.0 / 0.6 - 0.9 cm LVPW Diastolic Thickness 1.8 cm 0.6 - 1.0 / 0.6 - 0.9 cm LV Relative Wall Thickness 0.7 LA Systolic Diameter LX 3.9 cm 3.0 - 4.0 / 2.7 - 3.8 cm M-MODE Aortic Root Diameter MM 3.2 cm LA Systolic Diameter MM 3.7 cm LA Ao Ratio MM 1.2 MV E Point Septal Separation 0.3 cm AV Cusp Separation MM 1.8 cm DOPPLER MV Area PHT 2.1 cm??? Mitral E Point Velocity 47.6 cm/s Mitral A Point Velocity 76.7 cm/s Mitral E to A Ratio 0.6 MV Deceleration Time 368.1 ms MV E' Velocity 3.3 cm/s Mitral E to MV E' Ratio 14.3 FINDINGS Left Ventricle Moderately increased septal wall thickness. Left ventricular ejection fraction is estimated at 55 %. Right Ventricle Normal right ventricular size and function. Right ventricular systolic pressure within normal limits. Right Atrium Normal right atrial size. Left Atrium Mildly increased left atrial diameter. Mitral Valve Mitral valve thickened. Mild mitral regurgitation. Aortic Valve Trileaflet aortic valve. Aortic valve sclerosis. Tricuspid Valve Structurally normal tricuspid valve. Pulmonic Valve Structurally normal pulmonic valve. Pericardium Normal pericardium. Aorta Aortic root and proximal ascending aorta not well visualized. CONCLUSIONS Normal LV systolic function Mild mitral regurgitation Previewed by: Dr. Curt Swanson MD (Electronically Signed) Final Date: 02 May 2022 10:25
[2022-05-02] MEDS ORDERED: DOBUTamine DRIP for NUC MED 500 MG in DEXTROSE/WATER 1 250ML.BAG IV PRN (10:31)
--- NOTE | 2022-05-02 11:18 | P.PN ---
Subjective Progress Note Date: 05/02/22 HISTORY OF PRESENT ILLNESS: This is a 62-year-old female with a past medical history significant for hypertension diabetes, and hypothyroidism. Patient does not follow with a verifying specialist. We have been asked to see the patient in consultation for chest pain. Patient examined at the bedside. Patient presented to the emergency center due to chest pain started around 2 or 2:30 in the morning and woke her from sleep. It was a burning type and stabbing type pain in the left side of her chest along with pain in the neck and left arm. She denies having any abdominal pain, nausea or vomiting, fever or chills, shortness of breath. Initial blood pressure 174/91. * EKG reveals sinus mechanism with no signs of acute ischemia * Chest xray negative for acute process * CBC is unremarkable. Sodium 136, BUN 30 creatinine 0.77. Potassium 3.9. Troponin negative 3 draws. AST 77, ALT 41, alkaline phosphatase 200. Lipase 357. * CT angiogram was suboptimal without acute pulmonary embolism. No acute consolidation . Current home cardiac medications include metoprolol tartrate 59 g twice a day, amlodipine 5 mg at night, Lipitor 40 mg at night, lisinopril 20 mg daily 05/02 Patient denies having any chest pain or shortness of breath this morning. She d oes give history of a left ankle sprain without that she was able to tolerate ambulating on the treadmill today for stress test however, once patient arrived to the stress area, her leg gave out on her and testing was changed to dobutamine stress. Patient did not have any other symptoms at the time. Echocardiogram reveals normal LV systolic function, mild mitral regurgitation PHYSICAL EXAM: VITAL SIGNS: Reviewed. GENERAL: Well-developed in no acute distress. HEENT: Head is normocephalic. Pupils are equal, round. Sclerae anicteric. Mucous membranes of the mouth are moist. Neck supple. No JVD or thyromegaly LUNGS: Respirations even and unlabored. Lungs essentially clear to auscultation bilaterally. HEART: Regular rate and rhythm. S1 and S2 heard. ABDOMEN: Soft. Nondistended. Nontender. EXTREMITIES: Normal range of motion. No clubbing or cyanosis. Peripheral pul ses intact. Trace left lower extremity edema NEUROLOGIC: Awake and alert. Oriented x 3. ASSESSMENT: Chest pain, acute coronary syndrome ruled out Elevated d-dimer, pulmonary embolism ruled out Hypertension Hyperlipidemia Diabetes Hypothyroidism PLAN: Patient undergoing dobutamine stress testing today Continue patient on home cardiac medications If stress testing is within normal limits, patient will be cleared from cardiology for discharge home. Nurse practitioner note has been reviewed by physician. Signing provider agrees with the documented findings, assessment, and plan of care. Objective - Vital Signs Vital signs: Vital Signs Temp 97 F L 05/02/22 07:00 Pulse 71 05/02/22 07:00 Resp 18 05/02/22 07:00 BP 139/88 05/02/22 07:00 Pulse Ox 97 05/02/22 07:00 FiO2 Intake & Output 05/01/22 05/02/22 05/02/22 18:59 06:59 18:59 Weight 99.79 kg Other: # Voids 1 - Labs CBC & Chem 7: 05/01/22 03:58 05/01/22 03:58 Labs: Abnormal Lab Results - Last 24 Hours (Table) 05/01/22 05/01/22 05/01/22 Range/Units 03:58 08:40 14:01 D-Dimer 0.61 H (<0.60) mg/L FEU POC Glucose (mg/dL) 288 H (70-110) mg/dL Lipase 357 H (23-300) U/L 05/01/22 05/01/22 05/02/22 Range/Units 17:55 21:47 05:58 D-Dimer (<0.60) mg/L FEU POC Glucose (mg/dL) 363 H 130 H 330 H (70-110) mg/dL Lipase (23-300) U/L
[2022-05-02] MEDS ORDERED: DOBUTamine DRIP for NUC MED 500 MG/250 ML BAG IV ONE (11:20)
[2022-05-02 12:07] LABS: Glucose,Whole Blood 127 mg/dL (70-110)
[2022-05-02 12:37] LABS: ALT 37 U/L (4-34); AST 48 U/L (14-36); African American GFR (CKD) >90 (>60 ml/min/1.73 sqM); Albumin/Globulin Ratio 1.3; Alkaline Phosphatase 147 U/L (38-126); Anion Gap 8 mmol/L; Blood Urea Nitrogen 24 mg/dL (7-17); Calcium 9.2 mg/dL (8.4-10.2); Carbon Dioxide 28 mmol/L (22-30); Chloride 100 mmol/L (98-107); Globulin 3.1 g/dL; Glucose 146 mg/dL (74-99); Lipase 131 U/L (23-300); Non-African American GFR(CKD) 89 (>60 ml/min/1.73 sqM); Potassium 4.2 mmol/L (3.5-5.1); Sodium 136 mmol/L (137-145); Total Bilirubin 0.7 mg/dL (0.2-1.3); Total Protein 7.1 g/dL (6.3-8.2)
--- NOTE | 2022-05-02 12:56 | CA ---
Dobutamine Stress Echocardiogram Report Elda Gonzalez Age: 62 Gender: F : 1960 Exam Date: 05/02/2022 10:41 Exam Location: [facility] Ordering Physician: Angela Davidson Referring Physician: GINA HAYES, Recycling Director: SUZANNE,, Technologist: Ht (in): 68 Wt (lb): 220 Procedure CPT: Indication: CP ICD-9 Codes: Rhythm: Patient History: Cardiac Medications: Medications in past 24 hours: Contrast: Total Dose (mL): Stress Results Protocol: Dobutamine Peak Dose (???g/kg/min): Duration (min:sec): Atropine:(mg) Target HR: 136 Double Product: 61406 Resting HR: 68 Resting BP: 148 / 91 Peak HR: 138 Peak BP: 202 / 54 Max Predicted HR: 160 86 % Max Predicted HR Stress Summary: BP Response: Reason for Termination: Exceeded target heart rate (85% max predicted) Cardiac Symptoms: Test terminated after reaching target heart rate (85% max predicted) ECG Analysis Resting EKG: Normal sinus rhythm normal axis normal intervals Stress EKG: Patient received intravenous dobutamine or a period of Levophed and half minutes achieving 85% of predicted maximal heart rate without chest pain or diagnostic ST segment depression Arrhythmia: Echo Analysis Base Echo Analysis: Technically suboptimal study contrast agent was used to enhance endocardial definition normal left ventricular size wall motion systolic function Low Echo Anaylsis: Normal response Peak Echo Analysis: Normal hyperdynamic response Recovery Echo: Normal response MEASUREMENTS (Male/Female) Normal Values CONCLUSIONS Negative dobutamine stress echo Dr. Curt Swanson MD (Electronically Signed) Final Date: 02 May 2022 12:55
[2022-05-02 13:48] VITALS: BP 154/89; PULSE 81; TEMP 97.8
--- NOTE | 2022-05-02 14:56 | P.DS ---
Providers Date of admission: 05/01/22 11:04 Attending physician: Lacie Stallings MD Consults: 05/01/22 10:58 Consult Physician Urgent Consulting Provider: George Brennan Consult Reason/Comments: Chest pain, hx of stents Do you want consulting provider notified?: Yes Primary care physician: Johnson Thomson MD Hospital Course: Discharge Diagnosis: Atypical chest pain Elevated LFTs likely due to fatty liver: Trending down Nonspecific elevated lipase: Normalized Diabetes mellitus Hypothyroidism Fibromyalgia Hospital Course: Patient is a 62-year-old female with a past medical history of hypertension, hypothyroidism, diabetes, fibromyalgia, coronary artery disease status post stents who presents to the ED with burning sharp chest pain. Patient was evaluated by cardiology. Patient's troponins are negative 3. Patient had a dobutamine stress that was negative for reversible ischemia and echocardiogram was unremarkable. At the time of discharge patient denied any chest pain. She was deemed stable for discharge. Patient seen and examined at bedside.[] Vital signs reviewed and stable. General: [non toxic], [no distress], [appears at stated age] Derm: [warm], [dry] Head: [atraumatic], [normocephalic], [symmetric] Eyes: [EOMI], [no lid lag], [anicteric sclera] Mouth: [no lip lesion], [mucus membranes moist] Cardiovascular: [S1S2 reg], [no murmur], [positive posterior tibial pulse bilateral], Lungs: [CTA bilateral], [no rhonchi, no rales] , [no accessory muscle use] Abdominal: [soft], [ nontender to palpation], [no guarding], [no appreciable organomegaly] Ext: [no gross muscle atrophy], [no edema], [no contractures] Neuro: [ CN II-XI grossly intact], [no focal neuro deficits] Psych: [Alert], [oriented], [appropriate affect] A total of [25] minutes of time were spent preparing this complex discharge summary . Plan - Discharge Summary Discharge Rx Participant: No New Discharge Prescriptions: Continue lisinopriL [Prinivil] 20 mg PO DAILY amLODIPine [Norvasc] 5 mg PO HS Gabapentin 800 mg PO TID Atorvastatin Calcium [Lipitor] 40 mg PO HS Insulin Detemir (Levemir) [Levemir] 10 units SQ BID Insulin Lispro [Insulin Lispro Kwikpen U-100] See Protocol SQ AC-TID DULoxetine HCL [Cymbalta] 60 mg PO DAILY Levothyroxine Sodium [Synthroid] 150 mcg PO DAILY Discharge Medication List Atorvastatin Calcium [Lipitor] 40 mg PO HS 09/21/21 [History] Gabapentin 800 mg PO TID 09/21/21 [History] Insulin Detemir (Levemir) [Levemir] 10 units SQ BID 09/21/21 [History] Insulin Lispro [Insulin Lispro Kwikpen U-100] See Protocol SQ AC-TID 09/21/21 [History] amLODIPine [Norvasc] 5 mg PO HS 09/21/21 [History] lisinopriL [Prinivil] 20 mg PO DAILY 09/21/21 [History] DULoxetine HCL [Cymbalta] 60 mg PO DAILY 03/04/22 [History] Levothyroxine Sodium [Synthroid] 150 mcg PO DAILY 04/14/22 [History] Follow up Appointment(s)/Referral(s): Johnson Thomson MD [Primary Care Provider] - 1-2 days Discharge Disposition: HOME SELF-CARE
== END 2022-05-02 15:20 | disposition home or self-care (01) ==
LOC: EC 03:40 → 6NMEDSUR 11:04
PROVIDERS: ADMIT Internal Medicine; ATTEND Internal Medicine
DX: R07.89 Other chest pain (principal); R79.89 Other specified abnormal findings of blood chemistry; I25.10 Atherosclerotic heart disease of native coronary artery without angina pectoris; K21.9 Gastro-esophageal reflux disease without esophagitis; E11.9 Type 2 diabetes mellitus without complications; I10 Essential (primary) hypertension; E03.9 Hypothyroidism, unspecified; E78.5 Hyperlipidemia, unspecified; K76.0 Fatty (change of) liver, not elsewhere classified; R74.8 Abnormal levels of other serum enzymes; M79.7 Fibromyalgia; I34.0 Nonrheumatic mitral (valve) insufficiency; Z79.4 Long term (current) use of insulin; Z79.890 Hormone replacement therapy; Z79.899 Other long term (current) drug therapy; Z98.891 History of uterine scar from previous surgery; Z95.5 Presence of coronary angioplasty implant and graft; Z98.890 Other specified postprocedural states; Z87.891 Personal history of nicotine dependence; Z80.7 Family history of other malignant neoplasms of lymphoid, hematopoietic and related tissues
CPT/HCPCS: 96372; 96374; 96375; 99285; 36415; 93005; 93306; 93351; 85379; 80053 ×2; 82150; 83690 ×2; 83735; 84484; 85025; 85610; 85730; 71046; 76705; 71275; G0378 ×2; J1250; J2270; J1650; J1885; Q9950; Q9967

== ENCOUNTER → 2022-06-13 | Outpatient (CLI) | payer BC ==
--- NOTE | 2022-06-13 14:21 | XR ---
EXAMINATION TYPE: XR AP view pelvis and 2 views bilateral hips DATE OF EXAM: 06/13/2022 COMPARISON: NONE HISTORY: 62-year-old female M25.551, right hip pain since fracture 2 years ago. FINDINGS: There is a right L5 hemisacralization. Numerous pelvic phleboliths. Prominent discopathy al celio the anterior iliac crest. There is mild degenerative change of both hips with mild superolateral joint space narrowing and marginal spurring. There is chronic irregularity at the right pubic body drew ggesting old healed fracture deformity. Vascular calcifications along the proximal thighs. No acute f racture, subluxation, or dislocation seen. IMPRESSION: 1. Old healed fracture of the right pubic body. 2. Mild bilateral hip OA. No acute osseous anomalies seen. 3. Right L5 hemisacralization which can contribute to accelerated degenerative disc disease above at L4-L5.
== END | disposition home or self-care (01) ==
LOC: RADXRMAIN 09:31
PROVIDERS: ATTEND Internal Medicine
DX: M16.0 Bilateral primary osteoarthritis of hip (principal); M51.36 Other intervertebral disc degeneration, lumbar region
CPT/HCPCS: 73521

== ENCOUNTER 2022-09-09 16:53 | Observation (INO) | payer BC ==
--- NOTE | 2022-09-09 17:42 | CT ---
EXAMINATION TYPE: CT brain wo con DATE OF EXAM: 09/09/2022 HISTORY: Headache, blurred vision and hypertension x2 days. CT DLP: 1098.4 mGycm. Automated Exposure Control for Dose Reduction was Utilized. TECHNIQUE: CT scan of the head is performed without contrast. COMPARISON: None. FINDINGS: There is no acute intracranial hemorrhage or midline shift identified. There is mild to m oderate diffuse ventricular and sulcal prominence consistent with diffuse age-related cerebral atroph y. There is mild low-attenuation in the periventricular white matter consistent with chronic small v essel ischemic change. Vascular calcification distal internal carotid arteries is present. The globes are intact bilaterally and visualized paranasal sinuses are clear. IMPRESSION: No acute intracranial hemorrhage or midline shift. There is [id number] diffuse ag e-related cerebral atrophy and mild chronic small vessel ischemic change noted.
[2022-09-09] MEDS ORDERED: SODIUM CHLORIDE 0.9% 1,000 ML IV STA (19:22)
--- NOTE | 2022-09-09 19:33 | ED ---
Neuro HPI - General Chief Complaint: Neuro Symptoms/Deficit Stated Complaint: double vision high blood pressure Time Seen by Provider: 09/09/22 18:45 Source: patient, RN notes reviewed, old records reviewed Mode of arrival: ambulatory Limitations: no limitations - History of Present Illness Is the patient presenting with stroke symptoms?: Yes Initial Comments: This is a 62-year-old female to the emergency department for evaluation patient Dese for evaluation of blurry vision headache nausea and not feeling well dizziness but main complaint of double vision. Patient is seeing to due to the fact that she is taking to think she is unable to walk. Location: other (Patient) History of same: No Place: home Severity: moderate Improves With: none Worsens With: none Context: gradual onset Associated Symptoms: denies other symptoms Treatments Prior to Arrival: none - Related Data Home Medications: Home Medications Medication Instructions Recorded Confirmed Atorvastatin Calcium [Lipitor] 40 mg PO HS 09/21/21 09/09/22 Insulin Lispro [Insulin Lispro See Protocol SQ AC-TID 09/21/21 09/09/22 Kwikpen U-100] lisinopriL [Prinivil] 20 mg PO DAILY 09/21/21 09/09/22 DULoxetine HCL [Cymbalta] 60 mg PO DAILY 03/04/22 09/09/22 Gabapentin 300 mg PO BID 09/09/22 09/09/22 Insulin Detemir [Levemir Flexpen] 15 units SQ BID 09/09/22 09/09/22 amLODIPine [Norvasc] 10 mg PO HS 09/09/22 09/09/22 Previous Rx's Medication Instructions Recorded Levothyroxine Sodium [Synthroid] 150 mcg PO DAILY #90 tab 07/22/22 Allergies/Adverse Reactions: Allergies Allergy/AdvReac Type Severity Reaction Status Date / Time No Known Allergies Allergy Verified 09/09/22 22:41 Review of Systems ROS Statement: Those systems with pertinent positive or pertinent negative responses have been documented in the HPI. ROS Other: All systems not noted in ROS Statement are negative. General Exam - General Exam Comments Initial Comments: Patient does have binocular double vision Limitations: no limitations General appearance: alert, in no apparent distress Head exam: Present: atraumatic, normocephalic, normal inspection Eye exam: Present: normal appearance, PERRL. Absent: EOMI, scleral icterus, conjunctival injection, periorbital swelling ENT exam: Present: normal exam, mucous membranes moist Neck exam: Present: normal inspection. Absent: tenderness, meningismus, lymphadenopathy Respiratory exam: Present: normal lung sounds bilaterally. Absent: respiratory distress, wheezes, rales, rhonchi, stridor Cardiovascular Exam: Present: regular rate, normal rhythm, normal heart sounds. Absent: systolic murmur, diastolic murmur, rubs, gallop, clicks GI/Abdominal exam: Present: soft, normal bowel sounds. Absent: distended, tend erness, guarding, rebound, rigid Extremities exam: Present: normal inspection, full ROM, normal capillary refill. Absent: tenderness, pedal edema, joint swelling, calf tenderness Back exam: Present: normal inspection Neurological exam: Present: alert, oriented X3, CN II-XII intact Psychiatric exam: Present: normal affect, normal mood Skin exam: Present: warm, dry, intact, normal color. Absent: rash Stroke MDM - Lab Data Result diagrams: 09/10/22 07:20 09/10/22 07:20 Lab Results 09/09/22 09/09/22 09/09/22 Range/Units 19:43 19:43 19:43 WBC 4.7 (3.8-10.6) k/uL RBC 4.28 (3.80-5.40) m/uL Hgb 13.4 (11.4-16.0) gm/dL Hct 40.0 (34.0-46.0) % MCV 93.4 (80.0-100.0) fL MCH 31.3 (25.0-35.0) pg MCHC 33.5 (31.0-37.0) g/dL RDW 13.3 (11.5-15.5) % Plt Count 219 (150-450) k/uL MPV 8.2 Neutrophils % 62 % Lymphocytes % 24 % Monocytes % 8 % Eosinophils % 3 % Basophils % 1 % Neutrophils # 3.0 (1.3-7.7) k/uL Lymphocytes # 1.2 (1.0-4.8) k/uL Monocytes # 0.4 (0-1.0) k/uL Eosinophils # 0.2 (0-0.7) k/uL Basophils # 0.0 (0-0.2) k/uL PT 10.0 (9.0-12.0) sec INR 0.9 (<1.2) APTT 23.5 (22.0-30.0) sec Sodium 138 (137-145) mmol/L Potassium 3.9 (3.5-5.1) mmol/L Chloride 101 (98-107) mmol/L Carbon Dioxide 33 H (22-30) mmol/L Anion Gap 4 mmol/L BUN 21 H (7-17) mg/dL Creatinine 0.83 (0.52-1.04) mg/dL Est GFR (CKD-EPI)AfAm 89 (>60 ml/min/1.73 sqM) Est GFR (CKD-EPI)NonAf 77 (>60 ml/min/1.73 sqM) Glucose 76 (74-99) mg/dL Calcium 9.6 (8.4-10.2) mg/dL Total Bilirubin 0.4 (0.2-1.3) mg/dL AST 20 (14-36) U/L ALT 17 (4-34) U/L Alkaline Phosphatase 80 (38-126) U/L Creatine Kinase (30-135) U/L Troponin I (0.000-0.034) ng/mL Total Protein 6.7 (6.3-8.2) g/dL Albumin 3.7 (3.5-5.0) g/dL 09/09/22 09/09/22 Range/Units 19:43 19:43 WBC (3.8-10.6) k/uL RBC (3.80-5.40) m/uL Hgb (11.4-16.0) gm/dL Hct (34.0-46.0) % MCV (80.0-100.0) fL MCH (25.0-35.0) pg MCHC (31.0-37.0) g/dL RDW (11.5-15.5) % Plt Count (150-450) k/uL MPV Neutrophils % % Lymphocytes % % Monocytes % % Eosinophils % % Basophils % % Neutrophils # (1.3-7.7) k/uL Lymphocytes # (1.0-4.8) k/uL Monocytes # (0-1.0) k/uL Eosinophils # (0-0.7) k/uL Basophils # (0-0.2) k/uL PT (9.0-12.0) sec INR (<1.2) APTT (22.0-30.0) sec Sodium (137-145) mmol/L Potassium (3.5-5.1) mmol/L Chloride (98-107) mmol/L Carbon Dioxide (22-30) mmol/L Anion Gap mmol/L BUN (7-17) mg/dL Creatinine (0.52-1.04) mg/dL Est GFR (CKD-EPI)AfAm (>60 ml/min/1.73 sqM) Est GFR (CKD-EPI)NonAf (>60 ml/min/1.73 sqM) Glucose (74-99) mg/dL Calcium (8.4-10.2) mg/dL Total Bilirubin (0.2-1.3) mg/dL AST (14-36) U/L ALT (4-34) U/L Alkaline Phosphatase (38-126) U/L Creatine Kinase 25 L (30-135) U/L Troponin I <0.012 (0.000-0.034) ng/mL Total Protein (6.3-8.2) g/dL Albumin (3.5-5.0) g/dL - NIH Stroke Scale 1a. Level of Consciousness: (0) alert 1b. LOC Questions: (0) answers correctly 1c. LOC Commands: (0) performs tasks correctly 2. Best Gaze: (1) partial gaze palsy 4. Facial Palsy: (0) normal symmetrical movement 5a. Motor Arm Left: (0) no drift 5b. Motor Arm Right: (0) no drift 6a. Motor Leg Left: (0) no drift 6b. Motor Leg Right: (0) no drift 7. Limb Ataxia: (0) absent 8. Sensory: (0) normal 9. Best Language: (0) no aphasia 10. Dysarthria: (0) normal 11. Extinction/Inattention: (0) no abnormality - Medical Decision Making 62 female to the emergency department for of both blurry vision, headaches, revision double vision. At this time patient be admitted for neurology evaluation secondary to his headaches and blurry vision - Radiology Data Radiology results: report reviewed (ET brain CT had neck negative for acute disease), image reviewed Past Medical History Past Medical History: Coronary Artery Disease (CAD), Diabetes Mellitus, Hype rtension History of Any Multi-Drug Resistant Organisms: None Reported Past Surgical History: Section, Heart Catheterization With Stent Additional Past Surgical History / Comment(s): ortho surgeries Past Anesthesia/Blood Transfusion Reactions: No Reported Reaction Date of Last Stent Placement:: 2021 Past Psychological History: No Psychological Hx Reported Smoking Status: Former smoker Past Alcohol Use History: None Reported Past Drug Use History: Marijuana - Past Family History Mother Additional Family Medical History / Comment(s): hodykins lymphoma Sister(s) Additional Family Medical History / Comment(s): hodykins lymphoma Course Vital Signs 09/09/22 09/09/22 09/09/22 17:00 19:45 21:00 Temperature 98 F Pulse Rate 80 70 73 Pulse Rate [ Pulse Oximetery ] Respiratory 18 18 16 Rate Blood Pressure 158/87 143/69 144/73 Blood Pressure [Left Arm] O2 Sat by Pulse 99 99 97 Oximetry 09/09/22 09/09/22 22:44 23:16 Temperature 97.6 F Pulse Rate 74 Pulse Rate [ 76 Pulse Oximetery ] Respiratory 16 16 Rate Blood Pressure 140/65 Blood Pressure 147/76 [Left Arm] O2 Sat by Pulse 98 97 Oximetry - Reevaluation(s) Reevaluation #1: 09/09/22 Medical record is reviewed Reevaluation #2: 08/18/22 No improvement in symptoms here in the ER Reevaluation #3: 09/09/22 patient informed results and questions answered Reevaluation #4: 09/09/22 Was pt. sent in by a medical professional or institution? @ -no Did you speak to anyone other than the patient for history? @ - at [facility] Did you review nursing and triage notes? @ -agree Were old charts reviewed? @ -no Differential Diagnosis? @ -PARKS EKG interpreted by me (3pts min.)? @ -yes X-rays interpreted by me (1pt min.)? @ -no CT interpreted by me (1pt min.)? @ -no U/S interpreted by me (1pt. min.)? @ -no What testing was considered but not performed? (CT, X-rays, U/S, labs)? Why? @ -no What meds were considered but not given? Why? @ -no Did you discuss the management of the patient with other professionals? @ -no Did you reconcile home meds? @ -no Was smoking cessation discussed for >3mins.? @ -no Was critical care preformed (if so, how long)? @ -no Were there social determinants of health that impacted care today? How? (Homelessness, low income, unemployed, alcoholism, drug addiction, transportation, low edu. Level, literacy, decrease access to med. care, care home, rehab)? @ -no Was there de-escalation of care discussed even if they declined? (Discuss DNR or withdrawal of care, Hospice)? @ -no What co-morbidities impacted this encounter? (DM, HTN, Smoking, COPD, CAD, Cancer, CVA, Hep., AIDS, mental health diagnosis, sleep apnea, morbid obesity)? @ -no Was patient admitted / discharged? @ -admit Undiagnosed new problem with uncertain prognosis? @ -no Drug Therapy requiring intensive monitoring for toxicity (Heparin, Nitro, I nsulin, Cardizem)? @ -no Were any procedures done? @ -no] Diagnosis/symptom? @ -double vision, PARKS Acute, or Chronic, or Acute on Chronic? @ -acute] Uncomplicated (without systemic symptoms) or Complicated (systemic symptoms)? @ -no Side effects of treatment? @ -no Exacerbation, Progression, or Severe Exacerbation] @ -no Poses a threat to life or bodily function? @ -no Reevaluation #5: 09/10/22 17:26 Differential Headache: Migraine, tension, cluster, carbon monoxide, central venous thrombosis, pension karma temporal arteritis, acute closure glaucoma, intercranial hemorrhage, mastoiditis, sinusitis, head injury, this is not meant to be an all-inclusive list. - Consultations Consultation #1: carey garcia who will admit this patient Disposition Clinical Impression: Headache, Double vision with both eyes open Disposition: ADMITTED IP TO THIS [facility] Condition: Fair Is patient prescribed a controlled substance at d/c from ED?: No Time of Disposition: 22:15
[2022-09-09 20:21] LABS: Basophils % (A) 1 %; Eosinophils # (A) 0.2 k/uL (0-0.7); Eosinophils % (A) 3 %; HGB 13.4 gm/dL (11.4-16.0); Lymphocytes # (A) 1.2 k/uL (1.0-4.8); Lymphocytes % (A) 24 %; MCH 31.3 pg (25.0-35.0); MCHC 33.5 g/dL (31.0-37.0); MCV 93.4 fL (80.0-100.0); Mean Platelet Volume 8.2; Monocytes # (A) 0.4 k/uL (0-1.0); Monocytes % (A) 8 %; Neutrophils % (A) 62 %; Platelet Count 219 k/uL (150-450); RBC 4.28 m/uL (3.80-5.40); RDW 13.3 % (11.5-15.5); WBC 4.7 k/uL (3.8-10.6)
[2022-09-09 20:42] LABS: Albumin 3.7 g/dL (3.5-5.0); Calcium 9.6 mg/dL (8.4-10.2); INR 0.9 (<1.2); Partial Thromboplastin Time 23.5 sec (22.0-30.0); Potassium 3.9 mmol/L (3.5-5.1); Total Bilirubin 0.4 mg/dL (0.2-1.3); Total Protein 6.7 g/dL (6.3-8.2)
[2022-09-09] MEDS ORDERED: MORPHINE SULFATE 4 MG/ML SYRINGE IV PRN (22:11)
[2022-09-09] MEDS ORDERED: NALOXONE 0.4 MG/ML 1 ML VIAL IV PRN (22:11)
[2022-09-09] MEDS ORDERED: ONDANSETRON 4 MG/2 ML VIAL IVP PRN (22:11)
[2022-09-09] MEDS ORDERED: diphenhydrAMINE 50 MG/ML 1 ML VIAL IVP STA (22:16)
[2022-09-09] MEDS ORDERED: MORPHINE SULFATE 4 MG/ML SYRINGE IVP STA (22:16)
--- NOTE | 2022-09-09 22:38 | CT ---
EXAMINATION TYPE: CT angio head neck DATE OF EXAM: 09/09/2022 HISTORY: Headache, blurred vision and hypertension x2days. COMPARISON: None. CT DLP: 781.1 mGycm. Automated Exposure Control for Dose Reduction was Utilized. TECHNIQUE: CTA scan of the head and neck is performed with IV Contrast, patient injected with 65 cc mL of Isovue 370, axial images are obtained, coronal and sagittal reformatted images are reviewed. 3D reconstructed images are created on an independent workstation and reviewed. FINDINGS: Carotid/Vascular Structures: There is a 4 vessel origin with direct origin of the left vertebral cas ry from the aortic arch which is normal variant . No significant plaque or stenosis at the aortic arc h level. No significant plaque or stenosis in the common and carotid arteries bilaterally. Mild perip heral plaque at bilateral carotid bulb level without significant stenosis. Patent external carotid ar teries bilaterally without significant stenosis. Vertebral arteries are patent to the basilar junction. Left vertebral artery is noted dominant. Paten t right posterior communicating artery and small caliber left posterior communicating artery. Hypopla stic right P1 segment. No significant focal stenosis or aneurysm in the posterior circulation. Patent anterior communicating artery. No significant focal stenosis or aneurysm in the anterior circulation . Other: Grade 1 retrolisthesis C5 on C6. Moderate disc space narrowing with moderate to severe spurrin g at C5-C6 level. Mild disc space narrowing with moderate anterior spurring C6-C7 level. Prominent ma in pulmonary artery suggesting underlying pulmonary artery hypertension. IMPRESSION: No significant stenosis in common or internal carotid arteries bilaterally. No significa nt focal stenosis or aneurysm at the level of the [place]. NASCET criteria was used in interpretation of this exam?
[2022-09-09 23:19] LABS: Glucose,Whole Blood 140 mg/dL (70-110)
[2022-09-10] MEDS ORDERED: ASPIRIN 325 MG TAB PO STA (04:47)
[2022-09-10] MEDS ORDERED: ATORVASTATIN 80 MG TAB PO STA (04:47)
--- NOTE | 2022-09-10 04:50 | P.HPIM ---
History of Present Illness H&P Date: 09/10/22 The patient is a 62-year-old female with a PMH of type II DM, hypothyroidism, hypertension, hyperlipidemia who presents to the emergency room with complaints of double vision and headache. Patient reports that her symptoms started roughly 1-2 days ago with initial headache, diffuse, without photophobia or phonophobia, rated at a 5 out of 10, constant. She also reports then developing double vision with difficulty walking as a result. She denied experiencing ocular pain, weakness, numbness, tingling, speech abnormalities. At time of interview, she reported that her headache had nearly resolved but she continued to have double vision. She denied any prior history of such symptoms. Denies history of strokes. Denied history of migraines. CT brain without contrast in the emergency room revealed age-related cerebral atrophy with chronic small vessel ischemic disease. CT angiogram of head and neck was unremarkable. Laboratory evaluation revealed a WBC count of 4.7, hemoglobin 13.4, platelet count 219, sodium 138, CO2 33, BUN 21, creatinine 0.83. ED documentation reviewed and case discussed with ED provider. Review of systems: Pertinent positives and negatives as discussed in HPI, a complete review of systems was performed and all other systems are negative. Physical examination: Vital signs reviewed General: non toxic, no distress, appears at stated age, normal weight Derm: no unusual rashes/lesions, warm Head: atraumatic, normocephalic, symmetric Eyes: EOMI, no lid lag, anicteric sclera, pupils equal round reactive to light ENT: Nose and ears atraumatic Neck: No cervical lymphadenopathy, trachea midline, supple Mouth: no lip lesion, mucus membranes moist Cardiovascular: S1S2 reg, no murmur, positive dorsalis pedis pulse bilateral, no edema Lungs: CTA bilateral, no rhonchi, no rales, no accessory muscle use Abdominal: soft, nontender to palpation, no guarding Ext: muscle strength 5 out of 5 in all 4 extremities grossly, no gross muscle atrophy, no contractures, Neuro: CN II-XI grossly intact, no gross focal neuro deficits Psych: Alert, oriented, appropriate affect Assessment: Diplopia, unclear etiology, without typical CVA presentation, possible complex migraine Headache Chronic conditions: Type II DM, hypothyroidism, hypertension, hyperlipidemia Imaging: CT brain without contrast in the emergency room revealed age-related cerebral atrophy with chronic small vessel ischemic disease. CT angiogram of head and neck was unremarkable. Data Review: Laboratory evaluation revealed a WBC count of 4.7, hemoglobin 13.4, platelet count 219, sodium 138, CO2 33, BUN 21, creatinine 0.83. Plan: Continue with neuro checks Neurology consulted Cardiac monitoring Fall precautions Obtain Echocardiogram Continue with aspirin, statin DVT prophylaxis: Heparin subq The patient is admitted with an anticipated greater than 2 midnight stay for evaluation of diplopia CODE STATUS: Full Code Discussed with: Patient Anticipated discharge place: Home Past Medical History Past Medical History: Coronary Artery Disease (CAD), Diabetes Mellitus, Fibromyalgia, Hypertension Additional Past Medical History / Comment(s): type 1 DM, History of Any Multi-Drug Resistant Organisms: None Reported Past Surgical History: Section, Heart Catheterization With Stent Additional Past Surgical History / Comment(s): ortho surgeries,stent x4 Past Anesthesia/Blood Transfusion Reactions: No Reported Reaction Date of Last Stent Placement:: 2005 Past Psychological History: No Psychological Hx Reported, Depression Smoking Status: Former smoker Past Alcohol Use History: None Reported Past Drug Use History: Marijuana - Past Family History Mother Additional Family Medical History / Comment(s): hodykins lymphoma Sister(s) Additional Family Medical History / Comment(s): hodykins lymphoma Medications and Allergies Home Medications Medication Instructions Recorded Confirmed Type Atorvastatin Calcium [Lipitor] 40 mg PO HS 09/21/21 09/09/22 History Insulin Lispro [Insulin Lispro See Protocol SQ AC-TID 09/21/21 09/09/22 History Kwikpen U-100] lisinopriL [Prinivil] 20 mg PO DAILY 09/21/21 09/09/22 History DULoxetine HCL [Cymbalta] 60 mg PO DAILY 03/04/22 09/09/22 History Levothyroxine Sodium [Synthroid] 150 mcg PO DAILY #90 tab 07/22/22 09/09/22 Rx Gabapentin 300 mg PO BID 09/09/22 09/09/22 History Insulin Detemir [Levemir Flexpen] 15 units SQ BID 09/09/22 09/09/22 History amLODIPine [Norvasc] 10 mg PO HS 09/09/22 09/09/22 History Allergies Allergy/AdvReac Type Severity Reaction Status Date / Time No Known Allergies Allergy Verified 09/09/22 22:41 Physical Exam Vitals: Vital Signs Temp Pulse Pulse Resp BP BP Pulse Ox 09/09/22 23:16 97.6 F 76 16 147/76 97 09/09/22 22:44 74 16 140/65 98 09/09/22 21:00 73 16 144/73 97 09/09/22 19:45 70 18 143/69 99 09/09/22 17:00 98 F 80 18 158/87 99 Intake and Output 09/09/22 09/09/22 09/10/22 14:59 22:59 06:59 Other: Weight 99.79 kg 99.79 kg Results CBC & Chem 7: 09/09/22 19:43 09/09/22 19:43 Labs: Abnormal Lab Results - Last 24 Hours (Table) 09/09/22 09/09/22 09/09/22 Range/Units 19:43 19:43 23:15 Carbon Dioxide 33 H (22-30) mmol/L BUN 21 H (7-17) mg/dL POC Glucose (mg/dL) 140 H (70-110) mg/dL Creatine Kinase 25 L (30-135) U/L Thrombosis Risk Factor Assmnt - Choose All That Apply Any of the Below Risk Factors Present?: Yes Each Factor Represents 1 point: Age 41-60 years, Obesity (BMI >25) Other Risk Factors: Yes Each Risk Factor Represents 3 Points: Family history of DVT/PE Other congenital or acquired thrombophilia - If yes, enter type in comment: No Thrombosis Risk Factor Assessment Total Risk Factor Score: 5 Thrombosis Risk Factor Assessment Level: High Risk
[2022-09-10 06:04] LABS: Glucose,Whole Blood 348 mg/dL (70-110)
[2022-09-10] MEDS: LEVOTHYROXINE 75 MCG TAB PO SCH (07:20)
[2022-09-10] MEDS: INSULIN ASPART (NovoLOG) 100 UNIT/ML VIAL SQ SCH ×6 (07:20→21:58)
[2022-09-10] MEDS: HEPARIN SODIUM,PORCINE/PF 5,000 UNIT/0.5 ML SYRINGE SQ SCH ×2 (08:01→16:58)
[2022-09-10] MEDS: lisinopriL 20 MG TAB PO SCH (08:01)
[2022-09-10] MEDS: GABAPENTIN 300 MG CAP PO SCH ×2 (08:01→21:59)
[2022-09-10] MEDS: DULoxetine HCL 60 MG CAPSULE.DR PO SCH (08:01)
[2022-09-10 08:29] LABS: ALT 17 U/L (4-34); AST 22 U/L (14-36); African American GFR (CKD) >90 (>60 ml/min/1.73 sqM); Albumin 3.7 g/dL (3.5-5.0); Alkaline Phosphatase 96 U/L (38-126); Anion Gap 5 mmol/L; Blood Urea Nitrogen 22 mg/dL (7-17); Calcium 9.4 mg/dL (8.4-10.2); Carbon Dioxide 31 mmol/L (22-30); Chloride 101 mmol/L (98-107); Glucose 360 mg/dL (74-99); Non-African American GFR(CKD) 86 (>60 ml/min/1.73 sqM); Potassium 4.9 mmol/L (3.5-5.1); Sodium 137 mmol/L (137-145); Total Bilirubin 0.5 mg/dL (0.2-1.3); Total Protein 6.6 g/dL (6.3-8.2)
[2022-09-10 09:04] LABS: Basophils % (A) 0 %; Eosinophils # (A) 0.2 k/uL (0-0.7); Eosinophils % (A) 5 %; HCT 40.1 % (34.0-46.0); HGB 12.7 gm/dL (11.4-16.0); Lymphocytes % (A) 28 %; MCH 30.6 pg (25.0-35.0); MCHC 31.6 g/dL (31.0-37.0); MCV 96.9 fL (80.0-100.0); Mean Platelet Volume 8.3; Monocytes # (A) 0.2 k/uL (0-1.0); Monocytes % (A) 7 %; Neutrophils # (A) 2.1 k/uL (1.3-7.7); Neutrophils % (A) 60 %; Platelet Count 187 k/uL (150-450); RBC 4.14 m/uL (3.80-5.40); RDW 13.2 % (11.5-15.5); WBC 3.5 k/uL (3.8-10.6)
--- NOTE | 2022-09-10 10:23 | CA ---
Transthoracic Echo Report Name: Elda Gonzalez Age: 62 Gender: F : 1960 Exam Date: 09/10/2022 08:20 Exam Location: [place] [facility] Ht (in): 68 Wt (lb): 220 Ordering Physician: Hanh Avila MD Attending/Referring Phys: Tierce Filler Shaneka Warner RDCS Procedure CPT: Indications: diplopia Cardiac Hx: Technical Quality: Fair Contrast 1: Total Dose (mL): Contrast 2: Total Dose (mL): MEASUREMENTS (Male / Female) Normal Values 2D ECHO LV Diastolic Diameter PLAX 3.5 cm 4.2 - 5.9 / 3.9 - 5.3 cm LV Systolic Diameter PLAX 2.7 cm IVS Diastolic Thickness 1.5 cm 0.6 - 1.0 / 0.6 - 0.9 cm LVPW Diastolic Thickness 1.6 cm 0.6 - 1.0 / 0.6 - 0.9 cm LV Relative Wall Thickness 0.9 RV Internal Dim ED PLAX 2.6 cm LA Systolic Diameter LX 2.8 cm 3.0 - 4.0 / 2.7 - 3.8 cm LV Diastolic Volume MOD BP 48.8 cm??? 67 - 155 / 56 - 104 cm??? LV Systolic Volume MOD BP 21.3 cm??? 22 - 58 / 19 - 49 cm??? LV Ejection Fraction MOD BP 56.4 % >= 55 % LV Diastolic Volume MOD 4C 52.5 cm??? LV Systolic Volume MOD 4C 20.8 cm??? LV Ejection Fraction MOD 4C 60.3 % LV Diastolic Length 4C 5.9 cm LV Systolic Length 4C 5.1 cm LV Diastolic Volume MOD 2C 42.4 cm??? LV Systolic Volume MOD 2C 20.4 cm??? LV Ejection Fraction MOD 2C 52.0 % LV Diastolic Length 2C 7.4 cm LV Systolic Length 2C 5.7 cm LA Volume 44.3 cm??? 18 - 58 / 22 - 52 cm??? M-MODE Aortic Root Diameter MM 3.3 cm MV E Point Septal Separation 0.8 cm AV Cusp Separation MM 2.2 cm DOPPLER AV Peak Velocity 133.6 cm/s AV Peak Gradient 7.1 mmHg MV Area PHT 2.9 cm??? Mitral E Point Velocity 76.6 cm/s Mitral A Point Velocity 102.5 cm/s Mitral E to A Ratio 0.7 MV Deceleration Time 257.9 ms MV E' Velocity 3.6 cm/s Mitral E to MV E' Ratio 21.4 TR Peak Velocity 247.5 cm/s TR Peak Gradient 24.5 mmHg Right Ventricular Systolic Press 29.5 mmHg FINDINGS Left Ventricle Left ventricular ejection fraction is estimated at 50-55 %. Small left ventricular cavity. Moderate concentric left ventricular hypertrophy. Right Ventricle Normal right ventricular size and function. Right ventricular systolic pressure within normal limits. Right Atrium Normal right atrial size. Left Atrium Normal left atrial size. Mitral Valve Structurally normal mitral valve. No mitral stenosis, regurgitation or prolapse. Aortic Valve Trileaflet aortic valve. No aortic valve stenosis or regurgitation. Tricuspid Valve Structurally normal tricuspid valve. Mild tricuspid regurgitation. Pulmonic Valve Structurally normal pulmonic valve. No pulmonic regurgitation. Pericardium Normal pericardium. No pericardial effusion. Aorta Normal size aortic root and proximal ascending aorta. CONCLUSIONS Technically difficult study for interpretation Normal LV systolic function Previewed by: Dr. George Brennan MD (Electronically Signed) Final Date: 10 September 2022 10:22
[2022-09-10 11:47] LABS: Glucose,Whole Blood 115 mg/dL (70-110)
[2022-09-10] MEDS: INSULIN DETEMIR (LEVEMIR) 100 UNIT/ML SYR SQ SCH ×2 (11:50→21:57)
[2022-09-10] MEDS ORDERED: ACETAMINOPHEN TAB 325 MG TAB PO PRN (11:52)
--- NOTE | 2022-09-10 12:57 | P.CNNES ---
History of Present Illness Consult date: 09/10/22 Requesting physician: Eder Schumacher Reason for Consult: double vision History of Present Illness: This is a 62-year-old woman with history of diabetes mellitus, hypertension who presented to the emergency department because of diplopia. Patient stated that she's been having double vision of both eyes since Friday morning and happened around 6:00 in the morning and knows that when that she woke up and last normal was around midnight on Friday. She stated when she covered either eye the double vision goes away but when she has both eyes open she has double vision. She has headache behind both eyes and she feels as a pulsating headache and the she states that it's the between 5-7/10 she has minimal nausea but no vomiting. She feels when she covered either eye and her eyes are slightly blurry. She is also having some chest pain and some jaw pain recently. Denies any focal weakness or numbness. Denies difficulty getting her words out or swallowing. She has chronic history of diabetes as well as hypertension as stated that was uncontrolled but recently has been controlled. Some of the workup consisted of: CBC with differential on initial presentation is unremarkable Sodium, calcium is within normal limits. The glucose on initial presentation 76. CT of the head is reported as no acute intracranial hemorrhage or midline shift. There is mild to moderate diffuse age-related cerebral atrophy and mild chronic small vessel ischemic changes noted. I personally reviewed the CT and I agree w ith report. CT angiography of the head and neck is reported as no significant stenosis in common or internal carotid arteries bilaterally. No significant focal stenosis or aneurysm at the level [place] [facility] [place]. 2-D echo was reported as technically difficult study of 40 to patient. Normal left ventricle systolic function. Review of Systems Review of system: The 12 point system was reviewed and apparent positive and negative per HPI. Past Medical History Past Medical History: Coronary Artery Disease (CAD), Diabetes Mellitus, Fibromyalgia, Hypertension Additional Past Medical History / Comment(s): type 1 DM, History of Any Multi-Drug Resistant Organisms: None Reported Past Surgical History: Section, Heart Catheterization With Stent Additional Past Surgical History / Comment(s): ortho surgeries,stent x4 Past Anesthesia/Blood Transfusion Reactions: No Reported Reaction Date of Last Stent Placement:: 2005 Past Psychological History: No Psychological Hx Reported, Depression Smoking Status: Former smoker Past Alcohol Use History: None Reported Past Drug Use History: Marijuana - Past Family History Mother Additional Family Medical History / Comment(s): hodykins lymphoma Sister(s) Additional Family Medical History / Comment(s): hodykins lymphoma Medications and Allergies Home Medications Medication Instructions Recorded Confirmed Type Atorvastatin Calcium [Lipitor] 40 mg PO HS 09/21/21 09/09/22 History Insulin Lispro [Insulin Lispro See Protocol SQ AC-TID 09/21/21 09/09/22 History Kwikpen U-100] lisinopriL [Prinivil] 20 mg PO DAILY 09/21/21 09/09/22 History DULoxetine HCL [Cymbalta] 60 mg PO DAILY 03/04/22 09/09/22 History Levothyroxine Sodium [Synthroid] 150 mcg PO DAILY #90 tab 07/22/22 09/09/22 Rx Gabapentin 300 mg PO BID 09/09/22 09/09/22 History Insulin Detemir [Levemir Flexpen] 15 units SQ BID 09/09/22 09/09/22 History amLODIPine [Norvasc] 10 mg PO HS 09/09/22 09/09/22 History Allergies Allergy/AdvReac Type Severity Reaction Status Date / Time No Known Allergies Allergy Verified 09/09/22 22:41 Physical Examination - Vital Signs Vital Signs: Vital Signs Temp Pulse Pulse Resp BP BP Pulse Ox 09/10/22 08:00 98 F 86 17 137/75 97 09/10/22 04:07 97.7 F 79 16 174/79 95 09/09/22 23:16 97.6 F 76 16 147/76 97 09/09/22 22:44 74 16 140/65 98 09/09/22 21:00 73 16 144/73 97 09/09/22 19:45 70 18 143/69 99 09/09/22 17:00 98 F 80 18 158/87 99 Intake and Output 09/09/22 09/10/22 09/10/22 22:59 06:59 14:59 Intake Total 180 Balance 180 Intake: Oral 180 Other: # Voids 1 Weight 99.79 kg 99.79 kg GENERAL: The patient is lying in bed and is not in acute distress. CHEST: The heart rate is regular rate rhythm. No murmurs to auscultation. LUNG: Clear to auscultation bilaterally no wheezing noted throughout. Not labored breathing. ABDOMEN/GI: Bowel sounds present in all 4 quadrants. No tenderness to palpation throughout. NEUROLOGICAL: Higher mental function: The patient is awake, alert, oriented to self, place and time. Patient is following commands. No aphasia and no neglect. Cranial nerves: The pupils are round, equal and reactive to light Visual rudd is hard to assess because of cooperation. Extraocular movement is has partial left lateral rectus palsy with nystagmus on left eye upon looking to left. Facial sensation is normal to touch throughout. The facial strength is normal throughout. Hearing is normal bilaterally to hand rub. Tongue is midline and moved [id number] without any difficulty. No dysarthria is noted. Shoulder shrug is normal bilaterally. Motor: The strength is 5 over 5 throughout. Normal tone and bulk. Cerebellum: Normal finger to nose bilaterally. Sensation: Sensation is normal to touch throughout. Reflexes (right/left): 2+ throughout. Plantars are mute bilaterally. Results - Laboratory Findings CBC and BMP: 09/10/22 07:20 09/10/22 07:20 Abnormal Lab Findings: Abnormal Labs 09/09/22 09/09/22 09/09/22 19:43 19:43 23:15 WBC Carbon Dioxide 33 H BUN 21 H Glucose POC Glucose (mg/dL) 140 H Creatine Kinase 25 L 09/10/22 09/10/22 09/10/22 06:02 07:20 07:20 WBC 3.5 L Carbon Dioxide 31 H BUN 22 H Glucose 360 H POC Glucose (mg/dL) 348 H Creatine Kinase 09/10/22 11:45 WBC Carbon Dioxide BUN Glucose POC Glucose (mg/dL) 115 H Creatine Kinase Assessment and Plan Assessment: This is a 62-year-old woman who presented because of diplopia both eyes with some jaw pain, some blurry vision of both eyes and retorobital headache. On examination has partial left lateral rectus palsy. Acute partial left lateral rectus palsy and likely due to underlying history of DM and hypertension. Cannot rule out temporal arteritis (but seems less likely) Diabetes mellitus that is ongoing for year Hypertension Plan: I spoke with the primary team and we'll get ESR, CRP, we'll start the patient prophylactically on prednisone 60 mg daily until we get the ESR CRP. Will get MRI of the brain and MRI of the orbits to rule out any structural defect. TSH is ordered and I ordered HbA1c. Ophthalmology team is consulted We'll defer sugar management and the rest of medical management to primary team The plan was discussed with the patient and primary team Thank you for the consultation Time with Patient: Greater than 30
[2022-09-10] MEDS: predniSONE 20 MG TAB PO SCH (13:11)
[2022-09-10 16:37] LABS: Glucose,Whole Blood 281 mg/dL (70-110)
[2022-09-10 20:26] LABS: Glucose,Whole Blood 169 mg/dL (70-110)
[2022-09-10] MEDS ORDERED: amLODIPine 10 MG TAB PO SCH (21:00)
[2022-09-10] MEDS ORDERED: ATORVASTATIN 40 MG TAB PO SCH (21:00)
[2022-09-11] MEDS: HEPARIN SODIUM,PORCINE/PF 5,000 UNIT/0.5 ML SYRINGE SQ SCH ×2 (00:32→07:41)
--- NOTE | 2022-09-11 01:58 | CONS ---
CONSULTATION HISTORY: This is a 62-year-old white female with a history of type 2 diabetes, hypertension, and hyperlipidemia. The patient states that she woke up 2 days ago with double vision and blurriness in both eyes. She states the blurriness comes and goes, however. The patient also states she experienced a dull headache which has since resolved. The patient was evaluated in the emergency room and a CT was performed which was negative. She is currently on oral prednisone and resting comfortably. The patient states that her headache has resolved and is currently undergoing evaluation for temporal arteritis. Examination of visual acuity with correction at near measured 20/50 bilaterally. The pupils were equal and reactive to light. There was no evidence of any afferent pupillary defect. Extraocular movements were significant for restricted abduction in the left eye. The patient agreed that her diplopia was reduced, though not resolved in the right gaze position. On penlight exam, the lids were normal. The conjunctiva was quiet. Both corneas were clear. The anterior chambers were well formed. The iris was normal and the lenses appeared centered. The fundus exam revealed normal-appearing maculae, vessels and discs. EVALUATION: 1. Diplopia. I believe this is likely secondary to a left 6th nerve palsy, which frequently occurs in light of a history of hypertension and diabetes. A more detailed evaluation will be performed in the office utilizing prisms which will help in solidifying this diagnosis. 2. Headaches as stated earlier. This patient is going for evaluation for temporal arteritis and it is likely that a biopsy is already scheduled. 3. Diabetes. Fundus evaluation with closer scrutiny of the retina will be performed as an outpatient. Thank you for this consult. MMODL / IJN: [id number] /
[2022-09-11 06:08] LABS: Glucose,Whole Blood 227 mg/dL (70-110)
[2022-09-11] MEDS: INSULIN DETEMIR (LEVEMIR) 100 UNIT/ML SYR SQ SCH (06:47)
[2022-09-11] MEDS: LEVOTHYROXINE 75 MCG TAB PO SCH (06:48)
[2022-09-11 07:38] LABS: Glucose,Whole Blood 216 mg/dL (70-110)
[2022-09-11] MEDS: INSULIN ASPART (NovoLOG) 100 UNIT/ML VIAL SQ SCH ×2 (07:41→07:42)
[2022-09-11] MEDS: GABAPENTIN 300 MG CAP PO SCH (07:42)
[2022-09-11] MEDS: DULoxetine HCL 60 MG CAPSULE.DR PO SCH (07:42)
[2022-09-11] MEDS: predniSONE 20 MG TAB PO SCH (07:42)
[2022-09-11] MEDS: lisinopriL 20 MG TAB PO SCH (07:42)
[2022-09-11 09:26] VITALS: BP 174/89; PULSE 81; RESP 17; TEMP 98.1
--- NOTE | 2022-09-11 11:32 | P.DS ---
Providers Date of admission: 09/09/22 22:11 Expected date of discharge: 09/11/22 Attending physician: Hanh Avila MD Consults: 09/09/22 22:11 Consult Physician Routine Consulting Provider: Barak Robbins Consult Reason/Comments: double vision Do you want consulting provider notified?: Yes Consult Physician Routine Consulting Provider: Bill Queen Consult Reason/Comments: double vision Do you want consulting provider notified?: Yes Primary care physician: Johnson Thomson MD Hospital Course: The patient is a 62-year-old female with a PMH of type II DM, hypothyroidism, hypertension, hyperlipidemia who presents to the emergency room with complaints of double vision and headache. Patient reports that her symptoms started roughly 1-2 days ago with initial headache, diffuse, without photophobia or phonophobia, rated at a 5 out of 10, constant. She also reports then developing double vision with difficulty walking as a result. She denied experiencing ocular pain, weakness, numbness, tingling, speech abnormalities. At time of interview, she reported that her headache had nearly resolved but she continued to have double vision. She denied any prior history of such symptoms. Denies history of strokes. Denied history of migraines. CT brain without contrast in the emergency room revealed age-related cerebral atrophy with chronic small vessel ischemic disease. CT angiogram of head and neck was unremarkable. Laboratory evaluation revealed a WBC count of 4.7, hemoglobin 13.4, platelet count 219, sodium 138, CO2 33, BUN 21, creatinine 0.83. Patient was admitted for further workup of symptoms. Neurology was consulted and recommended obtaining TSH, ESR/CRP, starting prednisone 60 mg by mouth daily for treatment of temporal arteritis while awaiting results, MRI brain and MRI orbit with and without contrast. Ophthalmology was consulted and attribute her symptoms to likely sixth nerve palsy. TSH, ESR and CRP were within normal limits. Prednisone was discontinued. Patient was seen and examined this morning. She continues to report double vision which resolves when closing either eye. She reports no headache. She denies any slurred speech, confusion, numbness/weakness/tingling of the extremities. Her symptoms are highly unlikely for CVA. ESR and CRP are within normal limits, unlikely temporal arteritis. She likely has left sixth cranial nerve palsy. She would like to go home. She is advised to follow-up with her PCP within 1-2 days of discharge. She is advised to follow-up with ophthalmology within 1 week of discharge. Pertinent studies include brain CT, CTA head and neck, echocardiogram. General: non toxic, no distress, appears at stated age, normal weight Derm: no unusual rashes/lesions, warm Head: atraumatic, normocephalic, symmetric Eyes: EOMI, no lid lag, anicteric sclera ENT: Nose and ears atraumatic Neck: No cervical lymphadenopathy, trachea midline, supple Mouth: no lip lesion, mucus membranes moist Cardiovascular: S1S2 reg, no murmur Lungs: CTA bilateral, no rhonchi, no rales, no accessory muscle use Ext: muscle strength 5 out of 5 in all 4 extremities grossly, no gross muscle atrophy, no contractures, Neuro: no gross focal neuro deficits Psych: Alert, oriented, appropriate affect Discharge diagnoses: Diplopia, likely sixth cranial nerve palsy Headache, resolved Chronic conditions: Type II DM, hypothyroidism, hypertension, hyperlipidemia This complex discharge took 35 minutes to complete. Patient Condition at Discharge: Stable Plan - Discharge Summary Discharge Rx Participant: No New Discharge Prescriptions: Continue lisinopriL [Prinivil] 20 mg PO DAILY Levothyroxine Sodium [Synthroid] 150 mcg PO DAILY #90 tab amLODIPine [Norvasc] 10 mg PO HS Insulin Detemir [Levemir Flexpen] 15 units SQ BID Atorvastatin Calcium [Lipitor] 40 mg PO HS Insulin Lispro [Insulin Lispro Kwikpen U-100] See Protocol SQ AC-TID DULoxetine HCL [Cymbalta] 60 mg PO DAILY Gabapentin 300 mg PO BID Discharge Medication List Atorvastatin Calcium [Lipitor] 40 mg PO HS 09/21/21 [History] Insulin Lispro [Insulin Lispro Kwikpen U-100] See Protocol SQ AC-TID 09/21/21 [History] lisinopriL [Prinivil] 20 mg PO DAILY 09/21/21 [History] DULoxetine HCL [Cymbalta] 60 mg PO DAILY 03/04/22 [History] Levothyroxine Sodium [Synthroid] 150 mcg PO DAILY #90 tab 07/22/22 [Rx] Gabapentin 300 mg PO BID 09/09/22 [History] Insulin Detemir [Levemir Flexpen] 15 units SQ BID 09/09/22 [History] amLODIPine [Norvasc] 10 mg PO HS 09/09/22 [History] Follow up Appointment(s)/Referral(s): Johnson Thomson MD [Primary Care Provider] - 1-2 days Barak Robbins MD [STAFF PHYSICIAN] - 09/18/22 9:15 am (Need referral from primary for this visit. ) Patient Instructions/Handouts: Diplopia (DC) Activity/Diet/Wound Care/Special Instructions: Diet: Diabetic Follow up with your PCP within 1-2 days of discharge. Follow up with Opthalmology within 1 week of discharge. Take all medications as advised. Come back to the ED for confusion, slurred speech, numbness/weakness/tingling of the extremities. Discharge Disposition: HOME SELF-CARE
== END 2022-09-11 11:14 | disposition home or self-care (01) ==
LOC: EC 16:53 → 3SCARD 22:11 → INTOOBSV 22:11 → 3SCARD 22:39 → UNDODISIN 09-11 11:14
PROVIDERS: ADMIT Internal Medicine; ATTEND Internal Medicine
DX: H53.2 Diplopia (principal); R51.9 Headache, unspecified; G31.89 Other specified degenerative diseases of nervous system; I10 Essential (primary) hypertension; E11.9 Type 2 diabetes mellitus without complications; I25.10 Atherosclerotic heart disease of native coronary artery without angina pectoris; E03.9 Hypothyroidism, unspecified; E78.5 Hyperlipidemia, unspecified; I07.1 Rheumatic tricuspid insufficiency; F32.A Depression, unspecified; M79.7 Fibromyalgia; Z79.4 Long term (current) use of insulin; Z79.899 Other long term (current) drug therapy; Z79.890 Hormone replacement therapy; Z87.891 Personal history of nicotine dependence; Z80.7 Family history of other malignant neoplasms of lymphoid, hematopoietic and related tissues; Z95.5 Presence of coronary angioplasty implant and graft
CPT/HCPCS: 96372 ×2; 96375 ×2; 96374; 99285; 36415; 94760; 93306; 80053 ×2; 85652; 84443; 82550; 84484; 85025 ×2; 85610; 85730; 86140; 83036; 70496; 70450; 70498; G0378 ×3; J2270; J1200; J2405; J7512 ×2; Q9967; J1644 ×2; 96361

== ENCOUNTER → 2022-09-23 | Outpatient (CLI) | payer BC ==
--- NOTE | 2022-09-23 22:45 | BD ---
EXAMINATION TYPE: Axial Bone Density DATE OF EXAM: 09/23/2022 CLINICAL HISTORY: 62 years old Female. ICD-10 CODE: Z20113, Z780, OSTEO SCREENING Height: 67 in Weight: 219 lbs FRAX RISK QUESTIONS: History of Fracture in Adulthood: pelvis fx (not hips) age 57; rt elbow fx age 61 Secondary Osteoporosis: 1. Type 1 Diabetes: yes RISK FACTORS HISTORY OF: History of Wrist Fracture: rt wrist age 13 Active: limited Postmenopausal woman: age 47 Frequent falls: yes due to dizziness MEDICATIONS: Thyroid Medications: yes Which medication: Levothyroxine How Lon+ years Additional Medications: diabetes meds, fibromyalgia meds, blood pressure meds EXAM MEASUREMENTS: Bone mineral densitometry was performed using the [employer]. Bone mineral density as measured about the Lumbar spine is: ----- L1-L4(G/cm2): 1.317 T Score Values are as follows: ----- L1: 0.3 ----- L2: 0.7 ----- L3: 1.5 ----- L4: 1.7 ----- L1-L4: 1.1 Z Score Values are as follows: ----- L1: 0.4 ----- L2: 0.8 ----- L3: 1.6 ----- L4: 1.7 ----- L1-L4: 1.2 Bone mineral density baseline Bone mineral density about the R hip (g/cm2): 0.904 Bone mineral density about the L hip (g/cm2): 0.845 T Score values are as follows: -----R Neck: -0.7 -----L Neck: -0.9 -----R Total: -0.8 -----L Total: -1.3 Z Score values are as follows: -----R Neck: -0.2 -----L Neck: -0.6 -----R Total: -0.7 -----L Total: -1.2 Bone mineral density baseline FRAX%s: The graph provided illustrates a 11.8% chance for a major osteoporotic fx and a 0.8% chance f or the hips probability for fx in 10 years time. IMPRESSION: Osteopenia (T Score between -2.5 and -1). There is slightly increased risk of fracture and the patient may be considered for treatment. Re-Screen 2-5 years. NOTE: T-SCORE=SD OF THE YOUNG ADULT MEAN.
--- NOTE | 2022-09-24 08:10 | MM ---
Reason for Exam: Screening (asymptomatic). Patient History: Menarche at age 16. First Full-Term at age 32. Late child-bearing (after 30). Postmenopausal. Risk Values: Denia 5 year model risk: 1.8%. NCI Lifetime model risk: 9.1%. Tissue Density: There are scattered fibroglandular densities. Findings: Analyzed By CAD. There is no suspicious group of microcalcifications or new suspicious mass in either breast. Benign calcifications within both breasts. Overall Assessment: Benign, BI-RAD 2 Management: Screening Mammogram of both breasts in 1 year. A clinical breast exam by your physician is recommended on an annual basis and results should be correlated with mammographic findings. Electronically signed and approved by: Oli Bullock D.O.
== END | disposition home or self-care (01) ==
LOC: RADMAMWWP 06:52
PROVIDERS: ATTEND Internal Medicine
DX: Z12.31 Encounter for screening mammogram for malignant neoplasm of breast (principal); Z13.820 Encounter for screening for osteoporosis; M85.852 Other specified disorders of bone density and structure, left thigh; Z78.0 Asymptomatic menopausal state
CPT/HCPCS: 77067; 77080

== ENCOUNTER → 2023-05-26 | Outpatient (CLI) | payer BC ==
[2023-05-26 14:59] LABS: Basophils # (A) 0.02 X 10*3/uL (0.00-0.10); Basophils % (A) 0.4 %; Eosinophils # (A) 0.16 X 10*3/uL (0.04-0.35); Eosinophils % (A) 2.8 %; HCT 39.6 % (37.2-46.3); HGB 12.8 g/dL (12.0-15.0); Lymphocytes # (A) 0.92 X 10*3/uL (0.90-5.00); Lymphocytes % (A) 16.3 %; MCH 30.2 pg (27.0-32.0); MCHC 32.3 g/dL (32.0-37.0); MCV 93.4 FL (80.0-97.0); Mean Platelet Volume 11.3 FL (9.5-12.2); Monocytes # (A) 0.42 X 10*3/uL (0.20-1.00); Monocytes % (A) 7.5 %; NRBC Per 100 WBC 0 X 10*3/uL (0.00-0.01); Neutrophils % (A) 72.8 %; Platelet Count 242 X 10*3/uL (140-440); RBC 4.24 X 10*6/uL (4.10-5.20); RDW 13.1 % (11.5-14.5); WBC 5.63 X 10*3/uL (4.50-10.00)
[2023-05-26 15:44] LABS: ALT 16 U/L (8-44); AST 18 U/L (13-35); Albumin 4.1 g/dL (3.8-4.9); Albumin/Globulin Ratio 1.41 Ratio (1.60-3.17); Alkaline Phosphatase 104 U/L (41-126); Blood Urea Nitrogen 17.2 mg/dL (9.0-27.0); Calcium 9.6 mg/dL (8.7-10.3); Carbon Dioxide 27.4 mmol/L (21.6-31.8); Chloride 98 mmol/L (96-109); Chol/HDL Ratio 5.24 Ratio; Globulin 2.9 g/dL (1.6-3.3); Glucose 256 mg/dL (70-110); LDL Cholesterol,Calculated 160.5 mg/dL (0.0-131.0); Potassium 4.5 mmol/L (3.5-5.5); Sodium 137 mmol/L (135-145); T4, Free (Free Thyroxine) 1.41 ng/dL (0.80-1.80); Total Bilirubin 0.4 mg/dL (0.3-1.2)
== END | disposition home or self-care (01) ==
LOC: LABWHC1 07:09
PROVIDERS: ATTEND Internal Medicine
DX: E10.9 Type 1 diabetes mellitus without complications (principal); E03.9 Hypothyroidism, unspecified; M85.80 Other specified disorders of bone density and structure, unspecified site
CPT/HCPCS: 36415; 80053; 80061; 82306; 83036; 84439; 84443; 85025

== ENCOUNTER 2023-10-25 07:18 | Emergency (ER) | payer BC ==
[2023-10-25] MEDS: KETOROLAC 15 MG/ML 1 ML VIAL IM STA (07:37)
[2023-10-25] MEDS: HYDROmorphone 0.5 MG/0.5 ML SYRINGE IM STA ×2 (07:38→08:28)
--- NOTE | 2023-10-25 07:52 | ED ---
General Adult HPI - General Chief complaint: Extremity Injury, Upper Stated complaint: R arm injury Time Seen by Provider: 10/25/23 07:20 Source: patient, RN notes reviewed, old records reviewed Mode of arrival: ambulatory Limitations: no limitations - History of Present Illness Initial comments: This is a 63-year-old female comes in complaining of right lateral upper arm pain. Patient states she was pushing down a window and felt a pop and since then she is unable to lift her arm up or externally rotate. Patient denies any direct trauma to the area. Patient denies any previous injury to that shoulder. Patient denies any clavicle pain. Patient denies any elbow or wrist pain. - Related Data Home Medications Medication Instructions Recorded Confirmed Atorvastatin Calcium [Lipitor] 40 mg PO HS 09/21/21 09/09/22 Insulin Lispro [Insulin Lispro See Protocol SQ AC-TID 09/21/21 09/09/22 Kwikpen U-100] lisinopriL [Prinivil] 20 mg PO DAILY 09/21/21 09/09/22 DULoxetine HCL [Cymbalta] 60 mg PO DAILY 03/04/22 09/09/22 Gabapentin 300 mg PO BID 09/09/22 09/09/22 Insulin Detemir [Levemir Flexpen] 15 units SQ BID 09/09/22 09/09/22 amLODIPine [Norvasc] 10 mg PO HS 09/09/22 09/09/22 Previous Rx's Medication Instructions Recorded Levothyroxine Sodium [Synthroid] 150 mcg PO DAILY #90 tab 07/22/22 HYDROcodone/APAP 5-325MG [[place] 1 tab PO Q6HR PRN 3 Days #12 tab 10/25/23 5-325] Ketorolac [Toradol] 10 mg PO Q8HR #15 tab 10/25/23 Allergies Allergy/AdvReac Type Severity Reaction Status Date / Time No Known Allergies Allergy Verified 09/09/22 22:41 Review of Systems ROS Statement: Those systems with pertinent positive or pertinent negative responses have been documented in the HPI. ROS Other: All systems not noted in ROS Statement are negative. Past Medical History Past Medical History: Coronary Artery Disease (CAD), Diabetes Mellitus, Fibromyalgia, Hypertension Additional Past Medical History / Comment(s): type 1 DM, History of Any Multi-Drug Resistant Organisms: None Reported Past Surgical History: Section, Heart Catheterization With Stent Additional Past Surgical History / Comment(s): ortho surgeries,stent x4 Past Anesthesia/Blood Transfusion Reactions: No Reported Reaction Date of Last Stent Placement:: 2005 Past Psychological History: No Psychological Hx Reported, Depression Smoking Status: Former smoker Past Alcohol Use History: None Reported Past Drug Use History: Marijuana - Past Family History Mother Additional Family Medical History / Comment(s): hodykins lymphoma Sister(s) Additional Family Medical History / Comment(s): hodykins lymphoma General Exam - General Exam Comments Initial Comments: GENERAL Patient is well-developed and well-nourished. Patient is in mild distress. EYES Patient's pupils are equal and round. Extraocular motion is intact SKIN Unremarkable NEURO The patient is alert and oriented alert and oriented x 3 PYSCH Patient has normal interpersonal interactions. MUSCULOSKELETAL Patient is unable to abduct and unable to externally rotate. Patient has no tenderness at the distal bicep no tenderness on the clavicle and no tenderness to palpation of the shoulder Limitations: no limitations Course Vital Signs 10/25/23 07:20 Temperature 97.8 F Pulse Rate 79 Respiratory 16 Rate Blood Pressure 160/70 O2 Sat by Pulse 97 Oximetry Medical Decision Making - Medical Decision Making Was pt. sent in by a medical professional or institution (, PA, COAT PADDER, urgent care, hospital, or fpc...) When possible be specific @ -No Did you speak to anyone other than the patient for history (EMS, parent, family, police, friend...)? What history was obtained from this source @ -No Did you review nursing and triage notes (agree or disagree)? Why? @ -I reviewed and agree with nursing and triage notes Were old charts reviewed (outside hosp., previous admission, EMS record, old EKG, old radiological studies, urgent care reports/EKG's, fpc records)? Report findings @ -No old charts were reviewed Differential Diagnosis (chest pain, altered mental status, abdominal pain women, abdominal pain men, vaginal bleeding, weakness, fever, dyspnea, syncope, headache, dizziness, GI bleed, back pain, seizure, CVA, palpatations, mental health, musculoskeletal)? @ -Differential Musculoskeletal Muscular strain, contusion, ligament sprain, fracture, arthritis, septic arthritis, bursitis, cellulitis, muscle spasm, nerve compression, DVT, arterial occlusion, herpes zoster, electrolyte abnormality, tumor.... This is not meant to be in all inclusive list EKG interpreted by me (3pts min.). @ -As above X-rays interpreted by me (1pt min.). @ -X-ray of the shoulder and humerus shows a spiral fracture of the proximal humerus CT interpreted by me (1pt min.). @ -None done U/S interpreted by me (1pt. min.). @ -None done What testing was considered but not performed or refused? (CT, X-rays, U/S, labs)? Why? @ -None What meds were considered but not given or refused? Why? @ -None Did you discuss the management of the patient with other professionals (professionals i.e. , PA, COAT PADDER, lab, RT, psych nurse, social staff worker, structural designer, teacher, deportation officer, field nurse case manager)? Give summary @ -No Was smoking cessation discussed for >3mins.? @ -No Was critical care preformed (if so, how long)? @ -No Were there social determinants of health that impacted care today? How? (Homelessness, low income, unemployed, alcoholism, drug addiction, transportation, low edu. Level, literacy, decrease access to med. care, halfway, rehab)? @ -No Was there de-escalation of care discussed even if they declined (Discuss DNR or withdrawal of care, Hospice)? DNR status @ -No What co-morbidities impacted this encounter? (DM, HTN, Smoking, COPD, CAD, Cancer, CVA, ARF, Chemo, Hep., AIDS, mental health diagnosis, sleep apnea, morbid obesity)? @ -None Was patient admitted / discharged? Hospital course, mention meds given and route, prescriptions, significant lab abnormalities, going to OR and other pertinent info. @ -Patient will be given shoulder immobilizer. Patient has a fracture of the humerus. Patient will follow-up with Ortho. Patient was given Toradol and Dilaudid in the emergency department Undiagnosed new problem with uncertain prognosis? @ -No Drug Therapy requiring intensive monitoring for toxicity (Heparin, Nitro, Insulin, Cardizem)? @ -No Were any procedures done? @ -No Diagnosis/symptom? @ -Humerus fracture Acute, or Chronic, or Acute on Chronic? @ -Acute Uncomplicated (without systemic symptoms) or Complicated (systemic symptoms)? @ -Complicated Side effects of treatment? @ -No Exacerbation, Progression, or Severe Exacerbation? @ -No Poses a threat to life or bodily function? How? (Chest pain, [place], SC, pneumonia, PE, COPD, DKA, ARF, appy, cholecystitis, CVA, Diverticulitis, Homicidal, S uicidal, threat to staff... and all critical care pts) @ -No Disposition Clinical Impression: Humerus fracture Disposition: HOME SELF-CARE Condition: Good Instructions (If sedation given, give patient instructions): Arm Fracture in Adults (ED) Prescriptions: HYDROcodone/APAP 5-325MG [[place] 5-325] 1 tab PO Q6HR PRN 3 Days #12 tab PRN Reason: Pain Control Ketorolac [Toradol] 10 mg PO Q8HR #15 tab Is patient prescribed a controlled substance at d/c from ED?: No Referrals: Jamel Antunez MD [STAFF PHYSICIAN] - 1-2 days Time of Disposition: 08:16
--- NOTE | 2023-10-25 08:12 | XR ---
EXAMINATION TYPE: XR shoulder complete RT, XR humerus RT DATE OF EXAM: 10/25/2023 8:01 AM CLINICAL INDICATION:Female, 63 years old with history of Trauma; [facility] COMPARISON: None TECHNIQUE: XR shoulder complete RT, XR humerus RT; examined in AP, internally rotated and scapular Y projections. Frontal and lateral views of the humerus. FINDINGS/IMPRESSION: Somewhat spiral fracture through the proximal right humerus involving the metadiaphyseal region.A fra cture line also extends extending through the greater tuberosity. Mild displacement no significant sh ortening or angulation. No additional fractures.
[2023-10-25 08:43] VITALS: BP 146/68; PULSE 82; RESP 18; TEMP 98.1
== END 2023-10-25 08:42 | disposition home or self-care (01) ==
LOC: EC 07:18
DX: S42.301A Unspecified fracture of shaft of humerus, right arm, initial encounter for closed fracture (principal); F12.90 Cannabis use, unspecified, uncomplicated; Z87.891 Personal history of nicotine dependence; X58.XXXA Exposure to other specified factors, initial encounter
CPT/HCPCS: 73030; 73060; 99283; 96372; J1885; J1170

== ENCOUNTER → 2023-12-08 | Outpatient (CLI) | payer BC ==
--- NOTE | 2023-12-08 15:20 | BD ---
EXAMINATION TYPE: Axial Bone Density DATE OF EXAM: 12/08/2023 CLINICAL HISTORY: 63 years old Female. ICD-10 CODE: M85.80 OSTEOPENIA Height: 67.5" Weight: 266lbs FRAX RISK QUESTIONS: Alcohol (3 or more units per day): No Family History (Parent hip fracture): No Glucocorticoids (More than 3mos): No (Ex: prednisone, prednisolone, methylprednisolone, dexamethasone, and hydrocortisone). History of Fracture in Adulthood: Yes Secondary Osteoporosis: 1. Type 1 Diabetes: Yes 2. Hyperthyroidism: No 3. Menopause before 45: No 4. Malnutrition: No 5. Chronic liver disease: No Rheumatoid Arthritis: No Current Tobacco Use: No RISK FACTORS HISTORY OF: Hip Fracture (Right/Left): No Spine Fracture: No History of Wrist Fracture: No Surgery to Spine/Hip(right/left)/Wrist (right/left): No MEDICATIONS: Thyroid Medications: Yes Which medication: Levothyroxine How Long: Approximately 4 years Osteoporosis Medications: No EXAM MEASUREMENTS: Bone mineral densitometry was performed using the [employer] System. Bone mineral density as measured about the Lumbar spine is: ----- L1-L4(G/cm2): 1.342 T Score Values are as follows: ----- L1: 0.5 ----- L2: 0.5 ----- L3: 1.9 ----- L4: 2.1 ----- L1-L4: 1.4 Z Score Values are as follows: ----- L1: 0.6 ----- L2: 0.7 ----- L3: 2.1 ----- L4: 2.2 ----- L1-L4: 1.5 Bone mineral density has: increased 1.9% since study of: 09/23/2022 Bone mineral density about the R hip (g/cm2): 0.885 Bone mineral density about the L hip (g/cm2): 0.865 T Score values are as follows: -----R Neck: -1.0 -----L Neck: -1.1 -----R Total: -1.0 -----L Total: -1.1 Z Score values are as follows: -----R Neck: -0.4 -----L Neck: -0.6 -----R Total: -0.8 -----L Total: -1.0 Bone mineral density has: increased 0.1% since study of: 09/23/2022 FRAX%s: The graph provided illustrates a 11.4% chance for a major osteoporotic fx and a 0.7% chance f or the hips probability for fx in 10 years time. IMPRESSION: Osteopenia (T Score between -2.5 and -1). There is slightly increased risk of fracture and the patient may be considered for treatment. Re-Screen 2-5 years. NOTE: T-SCORE=SD OF THE YOUNG ADULT MEAN.
== END | disposition home or self-care (01) ==
LOC: RADBDWWP 10:18
PROVIDERS: ATTEND Internal Medicine
DX: S42.301A Unspecified fracture of shaft of humerus, right arm, initial encounter for closed fracture (principal); M85.89 Other specified disorders of bone density and structure, multiple sites
CPT/HCPCS: 77080

== ENCOUNTER 2024-02-04 09:22 | Emergency (ER) | payer BC ==
[2024-02-04 09:28] VITALS: TEMP 97.5
[2024-02-04] MEDS: SODIUM CHLORIDE 0.9% 2,000 ML IV STA (11:13)
--- NOTE | 2024-02-04 11:13 | ED ---
Nausea/Vomiting/Diarrhea HPI - General Chief complaint: Nausea/Vomiting/Diarrhea Stated complaint: vomitting Time Seen by Provider: 02/04/24 10:15 Source: patient, family, RN notes reviewed Mode of arrival: wheelchair Limitations: no limitations - History of Present Illness Initial comments: This is a 63-year-old female who presents to the emergency department for nausea and vomiting. States that it started this morning about an hour prior to arrival. She has generalized abdominal discomfort from the vomiting. Family is concerned because she is a diabetic and she has also been unable to keep down her medications. Denies any fevers/chills or sick contacts. Reports a hx of gastroparesis and states that it feels like a flare up. Denies any chest pain or shortness of breath. MD complaint: nausea, vomiting - Related Data Home Medications Medication Instructions Recorded Confirmed lisinopriL [Prinivil] 20 mg PO DAILY 09/21/21 02/04/24 DULoxetine HCL [Cymbalta] 60 mg PO DAILY 03/04/22 02/04/24 Gabapentin 300 mg PO BID 09/09/22 02/04/24 amLODIPine [Norvasc] 10 mg PO DAILY 09/09/22 02/04/24 Aspirin EC [Ecotrin Low Dose] 81 mg PO DAILY 02/04/24 02/04/24 Atorvastatin [Lipitor] 80 mg PO HS 02/04/24 02/04/24 HYDROcodone/APAP 7.5-325MG [[place] 1 tab PO Q6H PRN 02/04/24 02/04/24 7.5-325] Insulin Glargine,Hum.rec.anlog 14 units SQ HS 02/04/24 02/04/24 [Lantus Solostar Pen] Insulin Glargine,Hum.rec.anlog 20 units SQ DAILY 02/04/24 02/04/24 [Lantus Solostar Pen] Metoclopramide [Reglan] 5 mg PO BID 02/04/24 02/04/24 Nystatin 100,000 Unit/gm Powd 1 applic TOPICAL BID PRN 02/04/24 02/04/24 [Mycostatin Powder] hydroCHLOROthiazide [Hydrodiuril] 25 mg PO DAILY 02/04/24 02/04/24 Previous Rx's Medication Instructions Recorded Levothyroxine Sodium [Synthroid] 150 mcg PO DAILY #90 tab 03/06/23 Ondansetron Odt [Zofran Odt] 4 mg PO Q8HR PRN #30 tab 02/04/24 Promethazine [Phenergan] 25 mg PO Q6HR PRN #30 tablet 02/04/24 cefUROXime axetiL [Ceftin] 500 mg PO BID 7 Days #14 tab 02/05/24 Allergies Allergy/AdvReac Type Severity Reaction Status Date / Time No Known Allergies Allergy Verified 02/04/24 14:20 Review of Systems ROS Statement: Those systems with pertinent positive or pertinent negative responses have been documented in the HPI. ROS Other: All systems not noted in ROS Statement are negative. Past Medical History Past Medical History: Coronary Artery Disease (CAD), Diabetes Mellitus, Fibromyalgia, Hypertension Additional Past Medical History / Comment(s): type 1 DM, History of Any Multi-Drug Resistant Organisms: None Reported Past Surgical History: Section, Heart Catheterization With Stent Additional Past Surgical History / Comment(s): ortho surgeries,stent x4 Past Anesthesia/Blood Transfusion Reactions: No Reported Reaction Date of Last Stent Placement:: 2005 Past Psychological History: No Psychological Hx Reported, Depression Smoking Status: Former smoker Past Alcohol Use History: None Reported Past Drug Use History: Marijuana - Past Family History Mother Additional Family Medical History / Comment(s): hodykins lymphoma Sister(s) Additional Family Medical History / Comment(s): hodykins lymphoma General Exam Limitations: no limitations General appearance: alert, in no apparent distress Head exam: Present: atraumatic, normocephalic, normal inspection Respiratory exam: Present: normal lung sounds bilaterally. Absent: respiratory distress, wheezes, rales, rhonchi, stridor Cardiovascular Exam: Present: regular rate, normal rhythm, normal heart sounds. Absent: systolic murmur, diastolic murmur, rubs, gallop, clicks GI/Abdominal exam: Present: soft, normal bowel sounds. Absent: distended, tenderness, guarding, rebound, rigid Neurological exam: Present: alert, oriented X3, CN II-XII intact Psychiatric exam: Present: normal affect, normal mood Skin exam: Present: warm, dry, intact, normal color. Absent: rash Course Vital Signs 02/04/24 02/04/24 02/04/24 09:24 11:35 15:22 Temperature 97.5 F L Pulse Rate 93 91 89 Respiratory 18 22 18 Rate Blood Pressure 189/81 155/66 148/67 O2 Sat by Pulse 97 97 97 Oximetry Medical Decision Making - Medical Decision Making This is a 63 year old female who presents to the emergency department for nausea and vomiting. Was pt. sent in by a medical professional or institution? @ -No Did you speak to anyone other than the patient for history? @ -No Did you review nursing and triage notes? @ -Yes, and I agree, it is accurate with regards to the patient's symptoms. Were old charts reviewed? @ -No Differential Diagnosis? @ -Differential Nausea and Vomiting: Gastroenteritis, cholecystitis, appendicitis, pancreatitis, migraine, benign positional vertigo, food borne illness, pyelonephritis, irritable bowel syndrome, influenza, Covid, GERD, incarcerated hernia, intestinal obstruction, this is not meant to be an all-inclusive list. EKG interpreted by me (3pts min.)? @ -Not obtained X-rays interpreted by me (1pt min.)? @ -Not obtained CT interpreted by me (1pt min.)? @ -Not obtained U/S interpreted by me (1pt. min.)? @ -Not obtained What testing was considered but not performed? (CT, X-rays, U/S, labs)? Why? @ -None What meds were considered but not given? Why? @ -None Did you discuss the management of the patient with other professionals? @ -No Did you reconcile home meds? @ -No Was smoking cessation discussed for >3mins.? @ -No Was critical care preformed (if so, how long)? @ -No Were there social determinants of health that impacted care today? How? ( Homelessness, low income, unemployed, alcoholism, drug addiction, transportation, low edu. Level, literacy, decrease access to med. care, shelter, rehab)? @ -No Was there de-escalation of care discussed even if they declined? (Discuss DNR or withdrawal of care, Hospice)? @ -No What co-morbidities impacted this encounter? (DM, HTN, Smoking, COPD, CAD, Cancer, CVA, Hep., AIDS, mental health diagnosis, sleep apnea, morbid obesity)? @ -DM, gastroparesis Was patient admitted / discharged? @ -Discharged. Lab work unremarkable. Acetone negative and patient is not in DKA. Urinalysis consistent with infection. Patient treated with IV fluids and antiemetics with improvement in symptoms. She was comfortable with discharge home at that point and believes that this may have been related to gastroparesis, as she occasionally gets flareups. Prescription for Zofran and Phenergan suppositories provided. Urine results returned after the patient had been discharged and cefuroxime was then prescribed for the UTI as well. Patient discharged home in stable condition and advised to have close follow-up with he r PCP. Case discussed with ED attending Dr. Nguyen. Return precautions reviewed in depth, the patient is instructed to return to the emergency department with any new, worsening, or concerning symptoms. Patient verbalized understanding. Undiagnosed new problem with uncertain prognosis? @ -None Drug Therapy requiring intensive monitoring for toxicity (Heparin, Nitro, Insulin, Cardizem)? @ -None Were any procedures done? @ -None Diagnosis/symptom? @ -Nausea and vomiting, UTI Acute, or Chronic, or Acute on Chronic? @ -Acute Uncomplicated (without systemic symptoms) or Complicated (systemic symptoms)? @ -Uncomplicated Side effects of treatment? @ -None Exacerbation, Progression, or Severe Exacerbation] @ -Not applicable Poses a threat to life or bodily function? @ -Unlikely - Lab Data Result diagrams: 02/04/24 11:12 02/04/24 11:12 Lab Results 02/04/24 02/04/24 02/04/24 Range/Units 11:12 11:12 11:12 WBC 7.7 (3.8-10.6) k/uL RBC 4.35 (3.80-5.40) m/uL Hgb 13.5 (11.4-16.0) gm/dL Hct 40.9 (34.0-46.0) % MCV 94.0 (80.0-100.0) fL MCH 31.0 (25.0-35.0) pg MCHC 33.0 (31.0-37.0) g/dL RDW 13.4 (11.5-15.5) % Plt Count 224 (150-450) k/uL MPV 8.3 Neutrophils % 88 % Lymphocytes % 7 % Monocytes % 3 % Eosinophils % 1 % Basophils % 0 % Neutrophils # 6.8 (1.3-7.7) k/uL Lymphocytes # 0.6 L (1.0-4.8) k/uL Monocytes # 0.3 (0-1.0) k/uL Eosinophils # 0.1 (0-0.7) k/uL Basophils # 0.0 (0-0.2) k/uL Sodium 137 (137-145) mmol/L Potassium 4.1 (3.5-5.1) mmol/L Chloride 101 (98-107) mmol/L Carbon Dioxide 26 (22-30) mmol/L Anion Gap 10 mmol/L BUN 21 H (7-17) mg/dL Creatinine 0.91 (0.52-1.04) mg/dL Est GFR (CKD-EPI)AfAm 79 (>60 ml/min/1.73 sqM) Est GFR (CKD-EPI)NonAf 68 (>60 ml/min/1.73 sqM) Glucose 262 H (74-99) mg/dL Plasma Lactic Acid Hector 1.4 (0.7-2.0) mmol/L Calcium 9.9 (8.4-10.2) mg/dL Phosphorus 3.2 (2.5-4.5) mg/dL Magnesium 2.1 (1.6-2.3) mg/dL Total Bilirubin 0.7 (0.2-1.3) mg/dL AST 24 (14-36) U/L ALT 17 (4-34) U/L Alkaline Phosphatase 121 (38-126) U/L Total Protein 6.7 (6.3-8.2) g/dL Albumin 4.1 (3.5-5.0) g/dL Amylase 45 (30-110) U/L Lipase 26 (23-300) U/L Urine Color Urine Appearance (Clear) Urine pH (5.0-8.0) Ur Specific [place] (1.001-1.035) Urine Protein (Negative) Urine Glucose (UA) (Negative) Urine Ketones (Negative) Urine Blood (Negative) Urine Nitrite (Negative) Urine Bilirubin (Negative) Urine Urobilinogen (<2.0) mg/dL Ur Leukocyte Esterase (Negative) Urine RBC (0-5) /hpf Urine WBC (0-5) /hpf Ur Squamous Epith Cells (0-4) /hpf Urine Bacteria (None) /hpf Urine Mucus (None) /hpf Acetone, Qual Negative (Negative) 09/18/24 Range/Units 14:05 WBC (3.8-10.6) k/uL RBC (3.80-5.40) m/uL Hgb (11.4-16.0) gm/dL Hct (34.0-46.0) % MCV (80.0-100.0) fL MCH (25.0-35.0) pg MCHC (31.0-37.0) g/dL RDW (11.5-15.5) % Plt Count (150-450) k/uL MPV Neutrophils % % Lymphocytes % % Monocytes % % Eosinophils % % Basophils % % Neutrophils # (1.3-7.7) k/uL Lymphocytes # (1.0-4.8) k/uL Monocytes # (0-1.0) k/uL Eosinophils # (0-0.7) k/uL Basophils # (0-0.2) k/uL Sodium (137-145) mmol/L Potassium (3.5-5.1) mmol/L Chloride (98-107) mmol/L Carbon Dioxide (22-30) mmol/L Anion Gap mmol/L BUN (7-17) mg/dL Creatinine (0.52-1.04) mg/dL Est GFR (CKD-EPI)AfAm (>60 ml/min/1.73 sqM) Est GFR (CKD-EPI)NonAf (>60 ml/min/1.73 sqM) Glucose (74-99) mg/dL Plasma Lactic Acid Hector (0.7-2.0) mmol/L Calcium (8.4-10.2) mg/dL Phosphorus (2.5-4.5) mg/dL Magnesium (1.6-2.3) mg/dL Total Bilirubin (0.2-1.3) mg/dL AST (14-36) U/L ALT (4-34) U/L Alkaline Phosphatase (38-126) U/L Total Protein (6.3-8.2) g/dL Albumin (3.5-5.0) g/dL Amylase (30-110) U/L Lipase (23-300) U/L Urine Color Colorless Urine Appearance Cloudy H (Clear) Urine pH 6.5 (5.0-8.0) Ur Specific [place] 1.009 (1.001-1.035) Urine Protein Negative (Negative) Urine Glucose (UA) 3+ H (Negative) Urine Ketones 1+ H (Negative) Urine Blood Trace H (Negative) Urine Nitrite Positive H (Negative) Urine Bilirubin Negative (Negative) Urine Urobilinogen <2.0 (<2.0) mg/dL Ur Leukocyte Esterase Negative (Negative) Urine RBC 1 (0-5) /hpf Urine WBC 1 (0-5) /hpf Ur Squamous Epith Cells 2 (0-4) /hpf Urine Bacteria Rare H (None) /hpf Urine Mucus Rare H (None) /hpf Acetone, Qual (Negative) Disposition Clinical Impression: Nausea and vomiting, UTI (urinary tract infection) Disposition: HOME SELF-CARE Instructions (If sedation given, give patient instructions): Acute Nausea and Vomiting (ED) Additional Instructions: Return to the emergency department with any new, worsening, or concerning symptoms. Take the Zofran up to every 8 hours as needed for nausea and vomiting. You can use the Compazine suppositories up to every 6 hours for nausea and vomiting. Slowly advance your diet as tolerated and remain well- hydrated. Follow up with your primary care provider in 1-2 days. Prescriptions: Promethazine [Phenergan] 25 mg PO Q6HR PRN #30 tablet PRN Reason: Nausea And Vomiting Ondansetron Odt [Zofran Odt] 4 mg PO Q8HR PRN #30 tab PRN Reason: Nausea And Vomiting Is patient prescribed a controlled substance at d/c from ED?: No Referrals: Johnson Thomson DO [Primary Care Provider] - 1-2 days Time of Disposition: 14:54
[2024-02-04] MEDS: ONDANSETRON 4 MG/2 ML VIAL IVP STA (11:14)
[2024-02-04] MEDS: METOCLOPRAMIDE 5 MG/ML 2 ML VIAL IVP STA ×2 (11:20→13:49)
[2024-02-04] MEDS: FAMOTIDINE 20 MG/2 ML VIAL IV STA (11:25)
[2024-02-04 11:26] LABS: ALT 17 U/L (4-34); AST 24 U/L (14-36); African American GFR (CKD) 79 (>60 ml/min/1.73 sqM); Albumin 4.1 g/dL (3.5-5.0); Alkaline Phosphatase 121 U/L (38-126); Amylase 45 U/L (30-110); Anion Gap 10 mmol/L; Blood Urea Nitrogen 21 mg/dL (7-17); Calcium 9.9 mg/dL (8.4-10.2); Carbon Dioxide 26 mmol/L (22-30); Chloride 101 mmol/L (98-107); Glucose 262 mg/dL (74-99); Lipase 26 U/L (23-300); Magnesium 2.1 mg/dL (1.6-2.3); Non-African American GFR(CKD) 68 (>60 ml/min/1.73 sqM); Phosphorus 3.2 mg/dL (2.5-4.5); Potassium 4.1 mmol/L (3.5-5.1); Sodium 137 mmol/L (137-145); Total Bilirubin 0.7 mg/dL (0.2-1.3); Total Protein 6.7 g/dL (6.3-8.2)
[2024-02-04 11:30] LABS: Basophils % (A) 0 %; Eosinophils # (A) 0.1 k/uL (0-0.7); Eosinophils % (A) 1 %; HCT 40.9 % (34.0-46.0); HGB 13.5 gm/dL (11.4-16.0); Lymphocytes # (A) 0.6 k/uL (1.0-4.8); Lymphocytes % (A) 7 %; Mean Platelet Volume 8.3; Monocytes # (A) 0.3 k/uL (0-1.0); Monocytes % (A) 3 %; Neutrophils # (A) 6.8 k/uL (1.3-7.7); Neutrophils % (A) 88 %; Platelet Count 224 k/uL (150-450); RBC 4.35 m/uL (3.80-5.40); RDW 13.4 % (11.5-15.5); WBC 7.7 k/uL (3.8-10.6)
[2024-02-04] MEDS: PROCHLORPERAZINE INJ 10 MG/2 ML VIAL IVP STA (12:35)
[2024-02-04] MEDS: MORPHINE SULFATE 2 MG/ML SYRINGE IVP STA (12:36)
[2024-02-04] MEDS: DICYCLOMINE 10 MG/ML 2 ML AMP IM STA (12:38)
[2024-02-04] MEDS: HYDROmorphone 0.5 MG/0.5 ML SYRINGE IVP STA (13:48)
[2024-02-04 14:53] LABS: Appearance,Urine Cloudy (Clear); Bacteria,Urine Rare /hpf; Bilirubin,Urine Negative (Negative); Blood,Urine Trace (Negative); Color,Urine Colorless; Glucose,Urine (UA) 3+ (Negative); Ketones,Urine 1+ (Negative); Leukocyte Esterase,Urine Negative (Negative); Mucus,Urine Rare /hpf; Nitrite,Urine Positive (Negative); PH, Urine 6.5 (5.0-8.0); Protein,Urine Negative (Negative); RBC,Urine 1 /hpf (0-5); Specific Gravity,Urine 1.009 (1.001-1.035); Squamous Epithelial Cell,Urine 2 /hpf (0-4); Urobilinogen,Urine <2.0 mg/dL (<2.0); WBC,Urine 1 /hpf (0-5)
[2024-02-04 15:24] VITALS: BP 148/67; PULSE 89; RESP 18
== END 2024-02-04 15:24 | disposition home or self-care (01) ==
LOC: EC 09:22
CPT/HCPCS: 36415; 80053; 81001; 82009; 82150; 83605; 83690; 83735; 84100; 85025; 96361; 96372; 96374; 96375; 96376; 99284

== ENCOUNTER 2024-03-06 06:09 | Emergency (ER) | payer BC ==
[2024-03-06 06:14] VITALS: TEMP 98.6
--- NOTE | 2024-03-06 06:18 | ED ---
Upper Extremity HPI - General Chief Complaint: Extremity Injury, Upper Stated Complaint: Rt Shoulder Pain Time Seen by Provider: 03/06/24 06:18 Source: patient, RN notes reviewed Mode of arrival: ambulatory Limitations: no limitations - History of Present Illness Initial Comments: This is a 64-year-old female with a history of osteopenia presents emergency department chief complaint of right shoulder and arm pain. Patient states that this morning at approximately 530 states that she was rolling over in bed trying to scoot up in bed when she felt a type of breaking bone sensation. States that since this time she has had pain of her right shoulder and mid upper arm and states there is swelling of the arm and up her fingers as well. Patient had a injury to her right shoulder in October where she had a fracture and has been recovering since. She has been experiencing minimal range of motion in addition to paresthesias since this time however she denies any worsening of symptoms. patient has followed with Dr. Antunez - Related Data Home Medications Medication Instructions Recorded Confirmed lisinopriL [Prinivil] 20 mg PO DAILY 09/21/21 02/04/24 DULoxetine HCL [Cymbalta] 60 mg PO DAILY 03/04/22 02/04/24 Gabapentin 300 mg PO BID 09/09/22 02/04/24 amLODIPine [Norvasc] 10 mg PO DAILY 09/09/22 02/04/24 Aspirin EC [Ecotrin Low Dose] 81 mg PO DAILY 02/04/24 02/04/24 Atorvastatin [Lipitor] 80 mg PO HS 02/04/24 02/04/24 HYDROcodone/APAP 7.5-325MG [[place] 1 tab PO Q6H PRN 02/04/24 02/04/24 7.5-325] Insulin Glargine,Hum.rec.anlog 14 units SQ HS 02/04/24 02/04/24 [Lantus Solostar Pen] Insulin Glargine,Hum.rec.anlog 20 units SQ DAILY 02/04/24 02/04/24 [Lantus Solostar Pen] Metoclopramide [Reglan] 5 mg PO BID 02/04/24 02/04/24 Nystatin 100,000 Unit/gm Powd 1 applic TOPICAL BID PRN 02/04/24 02/04/24 [Mycostatin Powder] hydroCHLOROthiazide [Hydrodiuril] 25 mg PO DAILY 02/04/24 02/04/24 Previous Rx's Medication Instructions Recorded Levothyroxine Sodium [Synthroid] 150 mcg PO DAILY #90 tab 07/22/22 Ondansetron Odt [Zofran Odt] 4 mg PO Q8HR PRN #30 tab 02/04/24 Promethazine [Phenergan] 25 mg PO Q6HR PRN #30 tablet 02/04/24 cefUROXime axetiL [Ceftin] 500 mg PO BID 7 Days #14 tab 02/05/24 Allergies Allergy/AdvReac Type Severity Reaction Status Date / Time No Known Allergies Allergy Verified 03/06/24 06:14 Review of Systems ROS Statement: Those systems with pertinent positive or pertinent negative responses have been documented in the HPI. ROS Other: All systems not noted in ROS Statement are negative. Past Medical History Past Medical History: Coronary Artery Disease (CAD), Diabetes Mellitus, Fibromyalgia, Hypertension Additional Past Medical History / Comment(s): type 1 DM, History of Any Multi-Drug Resistant Organisms: None Reported Past Surgical History: Section, Heart Catheterization With Stent Additional Past Surgical History / Comment(s): ortho surgeries,stent x4 Past Anesthesia/Blood Transfusion Reactions: No Reported Reaction Date of Last Stent Placement:: 2005 Past Psychological History: No Psychological Hx Reported, Depression Smoking Status: Former smoker Past Alcohol Use History: None Reported Past Drug Use History: Marijuana - Past Family History Mother Additional Family Medical History / Comment(s): hodykins lymphoma Sister(s) Additional Family Medical History / Comment(s): hodykins lymphoma General Exam Limitations: no limitations General appearance: alert, in no apparent distress Eye exam: Present: normal appearance, PERRL, EOMI. Absent: scleral icterus, conjunctival injection, periorbital swelling ENT exam: Present: normal exam, mucous membranes moist Neck exam: Present: normal inspection. Absent: tenderness, meningismus, lymphadenopathy Respiratory exam: Present: normal lung sounds bilaterally. Absent: respiratory distress, wheezes, rales, rhonchi, stridor Cardiovascular Exam: Present: regular rate, normal rhythm, normal heart sounds. Absent: systolic murmur, diastolic murmur, rubs, gallop, clicks GI/Abdominal exam: Present: soft, normal bowel sounds. Absent: distended, tenderness, guarding, rebound, rigid Right Upper Arm exam: Present: tenderness, swelling (proximal arm). Absent: full ROM, deformity, crepidus Forearm Wrist exam: Present: normal inspection, full ROM. Absent: tenderness, swelling Hand Wrist exam: Present: full ROM, swelling (digits). Absent: tenderness Neurosensory exam: Present: other (parasthesias) Vascular: Present: normal capillary refill, radial pulse (2+). Absent: vascular compromise Back exam: Present: normal inspection Neurological exam: Present: alert, oriented X3, CN II-XII intact Course Vital Signs 03/06/24 03/06/24 06:12 07:00 Temperature 98.6 F Pulse Rate 93 86 Respiratory 18 16 Rate Blood Pressure 164/84 116/72 O2 Sat by Pulse 99 95 Oximetry Medical Decision Making - Medical Decision Making Was pt. sent in by a medical professional or institution (, PA, [employer], urgent care, hospital, or fpc...) When possible be specific @ -No Did you speak to anyone other than the patient for history (EMS, parent, family, police, friend...)? What history was obtained from this source @ -No Did you review nursing and triage notes (agree or disagree)? Why? @ -I reviewed and agree with nursing and triage notes Were old charts reviewed (outside hosp., previous admission, EMS record, old EKG, old radiological studies, urgent care reports/EKG's, fpc records)? Report findings @ -I reviewed the patient's emergency department visit note from 10/25/2023 when she presents emergency department with right lateral upper arm pain and she was discharged home with a humerus fracture and placed in a splint and instructed to follow-up with target protection specialist. Differential Diagnosis (chest pain, altered mental status, abdominal pain women, abdominal pain men, vaginal bleeding, weakness, fever, dyspnea, syncope, headache, dizziness, GI bleed, back pain, seizure, CVA, palpatations, mental health, musculoskeletal)? @ -Differential Musculoskeletal Muscular strain, contusion, ligament sprain, fracture, arthritis, septic arthritis, bursitis, cellulitis, muscle spasm, nerve compression, DVT, arterial occlusion, herpes zoster, electrolyte abnormality, tumor.... This is not meant to be in all inclusive list EKG interpreted by me (3pts min.). @ -None X-rays interpreted by me (1pt min.). @ -X-ray of the right shoulder and right humerus reveals a healing or subacute comminuted minimally displaced fracture of the proximal right humerus with no significant change alignment from prior study with no new fracture seen CT interpreted by me (1pt min.). @ -None done U/S interpreted by me (1pt. min.). @ -None done What testing was considered but not performed or refused? (CT, X-rays, U/S, labs)? Why? @ -None What meds were considered but not given or refused? Why? @ -None Did you discuss the management of the patient with other professionals (professionals i.e. Dr., PA, [employer], lab, RT, psych nurse, social work case manager, ground crewman aircraft support, teacher, ordnance officer, casework manager)? Give summary @ -No Was smoking cessation discussed for >3mins.? @ -No Was critical care preformed (if so, how long)? @ -No Were there social determinants of health that impacted care today? How? (Homel essness, low income, unemployed, alcoholism, drug addiction, transportation, low edu. Level, literacy, decrease access to med. care, alf, rehab)? @ -No Was there de-escalation of care discussed even if they declined (Discuss DNR or withdrawal of care, Hospice)? DNR status @ -No What co-morbidities impacted this encounter? (DM, HTN, Smoking, COPD, CAD, Cancer, CVA, ARF, Chemo, Hep., AIDS, mental health diagnosis, sleep apnea, morbid obesity)? @ -None Was patient admitted / discharged? Hospital course, mention meds given and route, prescriptions, significant lab abnormalities, going to OR and other pertinent info. @ -Discharge. 64-year-old female with right shoulder and arm pain. My evaluation patient noted to have mild swelling of the right proximal arm and swelling of the right digits. Patient is neurovascularly intact and has a 2+ radial pulse. Has full range of motion of the wrist and elbow. Patient has limited range of motion of the right upper arm however she states this is been ongoing since October from her injury. Patient is provided with dose of pain medication. X-ray unremarkable for new fracture noted however due to patient's edema and pain recommend that she wear her sling and follow-up with target protection specialist next week as soon as possible for further evaluation. Patient does have pain medication at home therefore prescription is not sent to the pharmacy. All questions answered at bedside and strict return parameters discussed with the patient she is verbalized understanding. Case discussed with Dr. Laird Undiagnosed new problem with uncertain prognosis? @ -No Drug Therapy requiring intensive monitoring for toxicity (Heparin, Nitro, Insulin, Cardizem)? @ -No Were any procedures done? @ -No Diagnosis/symptom? @ -Right shoulder/arm pain Acute, or Chronic, or Acute on Chronic? @ -Acute Uncomplicated (without systemic symptoms) or Complicated (systemic symptoms)? @ -uncomplicated Side effects of treatment? @ -No Exacerbation, Progression, or Severe Exacerbation? @ -No Poses a threat to life or bodily function? How? (Chest pain, [place], [place], pneumonia, PE, COPD, DKA, ARF, appy, cholecystitis, CVA, Diverticulitis, Homicidal, Suicidal, threat to staff... and all critical care pts) @ -No Disposition Clinical Impression: Shoulder pain, History of fracture of humerus Disposition: HOME SELF-CARE Condition: Stable Instructions (If sedation given, give patient instructions): Shoulder Pain (ED) Additional Instructions: Please return to the Emergency Department if symptoms worsen or any other concerns. Recommend that you keep sling in place and follow-up this week with target protection specialist for further evaluation. Take pain medication only as needed Is patient prescribed a controlled substance at d/c from ED?: No Referrals: Johnson Thomson DO [Primary Care Provider] - 1-2 days Time of Disposition: 06:47
--- NOTE | 2024-03-06 06:43 | XR ---
EXAMINATION TYPE: XR shoulder complete RT, XR humerus RT DATE OF EXAM: 03/06/2024 CLINICAL HISTORY: History of fracture with pain after injury TECHNIQUE: Three views of the right shoulder are obtained. 2 views right humerus. COMPARISON: Prior right shoulder and humerus x-ray October 25, 2023. FINDINGS: Redemonstration of minimally displaced comminuted fracture deformity through the proximal m etadiaphysis of the right humerus. There is now callus formation consistent with subacute age identif ied. No new fractures in the right shoulder or humerus. Glenohumeral and acromioclavicular joints are maintained. Visualized right ribs are intact. Overlying soft tissue is unremarkable. IMPRESSION: There is healing or subacute comminuted minimally displaced fracture of the proximal rig ht humerus now identified. No significant change in alignment from prior study. No new fractures are seen. [facility], , 03/06/2024 6:40 AM
[2024-03-06] MEDS: HYDROmorphone 0.5 MG/0.5 ML SYRINGE IM STA (06:45)
[2024-03-06 07:01] VITALS: BP 116/72; PULSE 86; RESP 16
== END 2024-03-06 06:58 | disposition home or self-care (01) ==
LOC: EC 06:09
CPT/HCPCS: 29105; 96372; 99284

== ENCOUNTER → 2024-03-11 | Outpatient (CLI) | payer BC ==
--- NOTE | 2024-03-13 08:00 | MR ---
EXAMINATION TYPE: MR cervical spine wo con DATE OF EXAM: 03/11/2024 7:00 PM CLINICAL INDICATION: Female, 64 years old with history of M54.12 RADICULOPATHY, CERVICAL REGION; PHH, Neck pain, arthritis COMPARISON: None. TECHNIQUE: Multi planar, multi sequence imaging was performed utilizing: T1-weighted, T2-weighted, an d turbo inversion recovery imaging of the cervical spine. IV Contrast: cc (none if empty) FINDINGS: Alignment: The cervical vertebral bodies have preserved heights. Straightening of the normal alignmen t. Reversal of the curvature. Bones: Multilevel disc space narrowing and osteophyte formation with facet and uncovertebral joint ar thropathy. Cord: The spinal cord is unremarkable with regards to their signal intensity and morphology. Discs: Intervertebral disc signal is maintained. C2-C3: No significant disc pathology. The spinal canal is patent. Bilateral facet and uncovertebral joint arthropathy are present with mild right neural foraminal stenosis. The left neural foramen is p atent. C3-C4: No significant disc pathology. The spinal canal is patent. Bilateral facet and uncovertebral joint arthropathy are present with mild left neural foraminal stenosis. The right neural foramen is p atent. C4-C5: No significant disc pathology. The spinal canal is patent. Bilateral facet and uncovertebral joint arthropathy are present with mild bilateral neural foraminal stenosis. C5-C6: No significant disc pathology. The spinal canal is patent. No neural foraminal stenosis. C6-C7: No significant disc pathology. The spinal canal is patent. No neural foraminal stenosis. C7-T1: No significant disc pathology. The spinal canal is patent. No neural foraminal stenosis. Other: There is loss of the normal signal void in the right vertebral artery.e IMPRESSION: 1. No evidence for disc herniation or significant spinal canal stenosis. 2. Moderate disc degeneration with associated osteoarthritic changes. No significant neural foraminal stenosis. 3. Loss of signal flow void in the right vertebral artery consider further evaluation of the vertebra l artery system. [facility], Workstation: [id number], 03/13/2024 7:57 AM [facility], Workstation: [id number], 03/13/2024 7:58 AM
== END | disposition home or self-care (01) ==
LOC: RADMRIMAIN 18:27
PROVIDERS: ATTEND Physical Medicine & Rehabilitation
DX: M47.22 Other spondylosis with radiculopathy, cervical region (principal); M50.122 Cervical disc disorder at C5-C6 level with radiculopathy; M50.123 Cervical disc disorder at C6-C7 level with radiculopathy; M43.12 Spondylolisthesis, cervical region
CPT/HCPCS: 72141

== ENCOUNTER → 2024-04-28 | Outpatient (CLI) | payer BC ==
[2024-04-28 13:00] LABS: African American GFR (CKD) 75 (>60 ml/min/1.73 sqM); Blood Urea Nitrogen 30 mg/dL (7-17); Non-African American GFR(CKD) 65 (>60 ml/min/1.73 sqM)
--- NOTE | 2024-04-28 14:15 | CT ---
EXAMINATION TYPE: CT angio neck CT DLP: 303.7 mGycm, Automated exposure control for dose reduction was used. DATE OF EXAM: 04/28/2024 1:36 PM COMPARISON: MR cervical spine 03/11/2024, CTA head and Neck 09/09/2022. CLINICAL INDICATION:Female, 64 years old with history of G45.0 VERTEBRAL ARTER INSUFFICIENCY; PHH, ca rotid stenosis TECHNIQUE: Axially acquired helical CT angiogram of the neck was obtained with contrast utilizing 75 cc of [id number] administered intravenously. Axial images are supplemented with 3D reconstructions wh ich were post-processed at an independent workstation. NASCET criteria used. FINDINGS: CTA NECK: Right Carotid System: The common carotid artery and external carotid artery are patent. The carotid bifurcation demonstrate s no evidence of hemodynamically significant stenosis. Moderate calcification of the cavernous portio n of the visualized right internal carotid artery. The remaining portions of the internal carotid art willie demonstrate normal size without significant narrowing. Left Carotid System: The common carotid artery and external carotid artery are patent. Mild calcified plaque at the caroti d bifurcation. The carotid bifurcation demonstrates no evidence of hemodynamically significant stenos is. Moderate calcification of the cavernous portion of the visualized left internal carotid artery. T he remaining portions of the internal carotid artery demonstrate normal size without significant narr owing. The left vertebral artery is dominant and patent. There is occlusion of the distal V4 segment of the right vertebral artery near the basilar artery. The remaining portions of the right vertebral artery are patent. There is a four-vessel aortic arch. The origins of the great vessels are patent. No evidence of hemod ynamically significant stenosis. Multilevel degenerative disc disease of the cervical spine. Incidental incomplete fusion of the poste rior arch of C1. Macrocalcification within the right thyroid lobe. IMPRESSION: 1. Interval occlusion of the distal V4 segment of the right vertebral artery near the basilar artery. Remaining portions of the right vertebral artery are patent. The left vertebral artery is dominant a nd patent. 2. Moderate calcified plaque involving the bilateral internal carotid arteries and the cavernous port ions. Otherwise no significant stenosis of the visualized carotid arterial systems. [facility], , 04/28/2024 2:13 PM
== END | disposition home or self-care (01) ==
LOC: RADCTMAIN 12:13
PROVIDERS: ATTEND Internal Medicine
DX: I65.23 Occlusion and stenosis of bilateral carotid arteries (principal)
CPT/HCPCS: 82565; 84520; 70498; 36415; Q9967

== ENCOUNTER 2024-04-29 18:42 | Emergency (ER) | payer BC ==
--- NOTE | 2024-04-29 19:17 | ED ---
ENT HPI - General Source: patient, RN notes reviewed Mode of arrival: wheelchair Limitations: no limitations <Galina Nunez - Last Filed: 04/29/24 19:13> - General Source: patient, RN notes reviewed <Fabiola Cano - Last Filed: 05/01/24 16:13> - General Chief complaint: ENT Stated complaint: lt ear hearing loss Time Seen by Provider: 04/29/24 19:00 - History of Present Illness Initial comments: Quick [id number] female presenting to the emergency department for chief complaint of left sided hearing loss that occurred earlier this afternoon. Patient denies paresthesias to the left side of the face, muscle weakness, occultly swallowing, headaches, blurry or double vision. She denies recent travel or long music exposure. She denies pain of the left ear or discharge. (Galina Nunez) 64-year-old female presenting to the emergency department for left-sided hearing loss earlier today. States she was laying on her left side and stood up when she suddenly noticed that she could not hear out of the left ear. Denies any other symptoms such as numbness, tingling of the face, weakness, slurred speech, vision changes, headache, ear pain. Denies sinus congestion or sore throat. Denies recent travel, loud her music exposure, or trauma or injury. She has never had this before. (Fabiola Cano) - Related Data Home Medications Medication Instructions Recorded Confirmed lisinopriL [Prinivil] 20 mg PO DAILY 09/21/21 02/04/24 DULoxetine HCL [Cymbalta] 60 mg PO DAILY 03/04/22 02/04/24 Gabapentin 300 mg PO BID 09/09/22 02/04/24 amLODIPine [Norvasc] 10 mg PO DAILY 09/09/22 02/04/24 Aspirin EC [Ecotrin Low Dose] 81 mg PO DAILY 02/04/24 02/04/24 Atorvastatin [Lipitor] 80 mg PO HS 02/04/24 02/04/24 HYDROcodone/APAP 7.5-325MG [[place] 1 tab PO Q6H PRN 02/04/24 02/04/24 7.5-325] Insulin Glargine,Hum.rec.anlog 14 units SQ HS 02/04/24 02/04/24 [Lantus Solostar Pen] Insulin Glargine,Hum.rec.anlog 20 units SQ DAILY 02/04/24 02/04/24 [Lantus Solostar Pen] Metoclopramide [Reglan] 5 mg PO BID 02/04/24 02/04/24 Nystatin 100,000 Unit/gm Powd 1 applic TOPICAL BID PRN 02/04/24 02/04/24 [Mycostatin Powder] hydroCHLOROthiazide [Hydrodiuril] 25 mg PO DAILY 02/04/24 02/04/24 Previous Rx's Medication Instructions Recorded Levothyroxine Sodium [Synthroid] 150 mcg PO DAILY #90 tab 07/22/22 Ondansetron Odt [Zofran Odt] 4 mg PO Q8HR PRN #30 tab 02/04/24 Promethazine [Phenergan] 25 mg PO Q6HR PRN #30 tablet 02/04/24 cefuroxime axetiL [Ceftin] 500 mg PO BID 7 Days #14 tab 02/05/24 Allergies Allergy/AdvReac Type Severity Reaction Status Date / Time No Known Allergies Allergy Verified 03/06/24 06:14 Review of Systems ROS Other: All systems not noted in ROS Statement are negative. <Galina Nunez - Last Filed: 04/29/24 19:13> ROS Other: All systems not noted in ROS Statement are negative. <Fabiola Cano - Last Filed: 05/01/24 16:13> ROS Statement: Those systems with pertinent positive or pertinent negative responses have been documented in the HPI. Past Medical History Past Medical History: Coronary Artery Disease (CAD), Diabetes Mellitus, Fibromyalgia, Hypertension Additional Past Medical History / Comment(s): type 1 DM, History of Any Multi-Drug Resistant Organisms: None Reported Past Surgical History: Section, Heart Catheterization With Stent Additional Past Surgical History / Comment(s): ortho surgeries,stent x4 Past Anesthesia/Blood Transfusion Reactions: No Reported Reaction Date of Last Stent Placement:: 2005 Past Psychological History: Depression Smoking Status: Former smoker Past Alcohol Use History: None Reported Past Drug Use History: Marijuana - Past Family History Mother Additional Family Medical History / Comment(s): hodykins lymphoma Sister(s) Additional Family Medical History / Comment(s): hodykins lymphoma <Galina Nunez - Last Filed: 04/29/24 19:13> General Exam Limitations: no limitations <Galina Nunez - Last Filed: 04/29/24 19:13> General appearance: alert, in no apparent distress Head exam: Present: atraumatic, normocephalic, normal inspection Eye exam: Present: normal appearance, PERRL, EOMI. Absent: scleral icterus, conjunctival injection, periorbital swelling ENT exam: Present: normal exam, mucous membranes moist, TM's normal bilaterally (Mild amount of fluid behind left TM, no erythema or bulging, ear canal clear), other (Snell test lateralized to left side) Neck exam: Present: normal inspection. Absent: tenderness, meningismus, lymphadenopathy Respiratory exam: Present: normal lung sounds bilaterally. Absent: respiratory distress, wheezes, rales, rhonchi, stridor Cardiovascular Exam: Present: regular rate, normal rhythm, normal heart sounds. Absent: systolic murmur, diastolic murmur, rubs, gallop, clicks Neurological exam: Present: alert, oriented X3, CN II-XII intact Psychiatric exam: Present: normal affect, normal mood Skin exam: Present: warm, dry, intact, normal color. Absent: rash <Fabiola Cano - Last Filed: 05/01/24 16:13> - General Exam Comments Initial Comments: Visual Physical Exam Vital signs reviewed General: Well-appearing, nontoxic, no acute distress. Head: Normocephalic, atraumatic Eyes: PERRLA, EOMI ENT: Airway patent Chest: Nonlabored breathing Skin: No visual rash, normal skin tone Neuro: Alert and oriented 3 Musculoskeletal: No gross abnormalities (Galina Nunez) Course Vital Signs 04/29/24 04/29/24 18:44 23:30 Temperature 98.1 F 98 F Pulse Rate 93 86 Respiratory 18 17 Rate Blood Pressure 156/80 151/84 O2 Sat by Pulse 100 99 Oximetry Medical Decision Making <Galina Nunez - Last Filed: 04/29/24 19:13> <Fabiola Cano - Last Filed: 05/01/24 16:13> - Medical Decision Making I completed the quick note portion of this chart signed Galina Nunez PA-C (Galina Nunez) Was pt. sent in by a medical professional or institution ([facility]erma, RETURNED GOODS RECEIVING CLERK, urgent care, hospital, or fpc...) When possible be specific @ -No Did you speak to anyone other than the patient for history (EMS, parent, family, police, friend...)? What history was obtained from this source @ -No Did you review nursing and triage notes (agree or disagree)? Why? @ -I reviewed and agree with nursing and triage notes Were old charts reviewed (outside hosp., previous admission, EMS record, old EKG, old radiological studies, urgent care reports/EKG's, fpc records)? Report findings @ -No old charts were reviewed Differential Diagnosis (chest pain, altered mental status, abdominal pain women, abdominal pain men, vaginal bleeding, weakness, fever, dyspnea, syncope, headache, dizziness, GI bleed, back pain, seizure, CVA, palpatations, mental health, musculoskeletal)? @ -Cerumen impaction, otitis media, otitis externa, conductive hearing loss, sensorineural hearing loss EKG interpreted by me (3pts min.). @ -None X-rays interpreted by me (1pt min.). @ -None done CT interpreted by me (1pt min.). @ -None done U/S interpreted by me (1pt. min.). @ -None done What testing was considered but not performed or refused? (CT, X-rays, U/S, labs)? Why? @ -None What meds were considered but not given or refused? Why? @ -None Did you discuss the management of the patient with other professionals (professionals i.e. ALFERD Lerma, RETURNED GOODS RECEIVING CLERK, lab, RT, psych nurse, social worker psychiatric, landing worker, t eacher, supervisor dog license officer, manager case management)? Give summary @ -No Was smoking cessation discussed for >3mins.? @ -No Was critical care preformed (if so, how long)? @ -No Were there social determinants of health that impacted care today? How? (Homelessness, low income, unemployed, alcoholism, drug addiction, transportation, low edu. Level, literacy, decrease access to med. care, [facility], rehab)? @ -No Was there de-escalation of care discussed even if they declined (Discuss DNR or withdrawal of care, Hospice)? DNR status @ -No What co-morbidities impacted this encounter? (DM, HTN, Smoking, COPD, CAD, Cance r, CVA, ARF, Chemo, Hep., AIDS, mental health diagnosis, sleep apnea, morbid obesity)? @ -None Was patient admitted / discharged? Hospital course, mention meds given and route, prescriptions, significant lab abnormalities, going to OR and other pertinent info. @ -Discharge. No red flag symptoms. Mild amount of fluid behind left TM, no erythema. Snell test lateralizes to left side indicating conductive hearing loss. Advised to follow-up with ENT as an outpatient basis. Appropriate return precautions and follow-up care discussed. Case was discussed with my ED attending Dr. Jewell. Undiagnosed new problem with uncertain prognosis? @ -No Drug Therapy requiring intensive monitoring for toxicity (Heparin, Nitro, Insulin, Cardizem)? @ -No Were any procedures done? @ -No Diagnosis/symptom? @ -Conductive hearing loss of left ear Acute, or Chronic, or Acute on Chronic? @ -Acute Uncomplicated (without systemic symptoms) or Complicated (systemic symptoms)? @ -Uncomplicated Side effects of treatment? @ -No Exacerbation, Progression, or Severe Exacerbation? @ -No Poses a threat to life or bodily function? How? (Chest pain, [place], [place], pneumonia, PE, COPD, DKA, ARF, appy, cholecystitis, CVA, Diverticulitis, Homicidal, Suicidal, threat to staff... and all critical care pts) @ -No (Fabiola Cano) Disposition <Galina Nunez - Last Filed: 04/29/24 19:13> Is patient prescribed a controlled substance at d/c from ED?: No Time of Disposition: 22:46 <Fabiola Cano - Last Filed: 05/01/24 16:13> Clinical Impression: Hearing loss in left ear Disposition: HOME SELF-CARE Condition: Stable Instructions (If sedation given, give patient instructions): Hearing Loss (ED) Additional Instructions: Follow-up with ENT as discussed. Please return to the Emergency Department if symptoms worsen or any other concerns. Referrals: Johnson Thomson DO [Primary Care Provider] - 1-2 days Crow Walters MD [STAFF PHYSICIAN] - 1-2 days
[2024-04-29 23:35] VITALS: BP 151/84; PULSE 86; RESP 17; TEMP 98
== END 2024-04-29 23:35 | disposition home or self-care (01) ==
LOC: EC 18:42
DX: H91.92 Unspecified hearing loss, left ear (principal); Z87.891 Personal history of nicotine dependence
CPT/HCPCS: 99282

== ENCOUNTER → 2024-05-17 | Outpatient (CLI) | payer BC ==
[2024-05-17 10:32] LABS: ALT 14 U/L (8-44); AST 14 U/L (13-35); Chol/HDL Ratio 2.83 Ratio; LDL Cholesterol,Calculated 68.3 mg/dL (0.0-131.0); VLDL Calculation 16.96 mg/dL (5.00-40.00)
== END | disposition home or self-care (01) ==
LOC: LABWHC1 07:01
PROVIDERS: ATTEND Internal Medicine Cardiovascular Disease
DX: E78.2 Mixed hyperlipidemia (principal)
CPT/HCPCS: 36415; 80061; 84450; 84460

== ENCOUNTER → 2024-05-26 | Outpatient (CLI) | payer BC ==
[2024-05-26 14:59] LABS: Basophils # (A) 0.04 X 10*3/uL (0.00-0.10); Basophils % (A) 0.4 %; Eosinophils # (A) 0.15 X 10*3/uL (0.04-0.35); Eosinophils % (A) 1.6 %; HCT 39.2 % (37.2-46.3); HGB 12.7 g/dL (12.0-15.0); Lymphocytes # (A) 2.39 X 10*3/uL (0.90-5.00); Lymphocytes % (A) 25.1 %; MCH 30.5 pg (27.0-32.0); MCHC 32.4 g/dL (32.0-37.0); MCV 94.2 FL (80.0-97.0); Monocytes # (A) 0.61 X 10*3/uL (0.20-1.00); Monocytes % (A) 6.4 %; NRBC Per 100 WBC 0 X 10*3/uL (0.00-0.01); Neutrophils # (A) 6.31 X 10*3/uL (1.80-7.70); Neutrophils % (A) 66.2 %; Platelet Count 259 X 10*3/uL (140-440); RBC 4.16 X 10*6/uL (4.10-5.20); RDW 13.5 % (11.5-14.5); WBC 9.53 X 10*3/uL (4.50-10.00)
[2024-05-26 16:19] LABS: ALT 12 U/L (8-44); AST 17 U/L (13-35); Albumin/Globulin Ratio 1.48 Ratio (1.60-3.17); Alkaline Phosphatase 103 U/L (41-126); Blood Urea Nitrogen 22.9 mg/dL (9.0-27.0); Calcium 9.9 mg/dL (8.7-10.3); Carbon Dioxide 24.8 mmol/L (21.6-31.8); Chloride 101 mmol/L (96-109); Globulin 2.7 g/dL (1.6-3.3); Glucose 145 mg/dL (70-110); Magnesium 1.9 mg/dL (1.5-2.4); Phosphorus 3.5 mg/dL (2.4-5.1); Potassium 4.4 mmol/L (3.5-5.5); Sodium 139 mmol/L (135-145); Total Bilirubin 0.4 mg/dL (0.3-1.2); Total Protein 6.7 g/dL (6.2-8.2)
== END | disposition home or self-care (01) ==
LOC: LABWHC1 11:15
PROVIDERS: ATTEND Internal Medicine
DX: R80.9 Proteinuria, unspecified (principal)
CPT/HCPCS: 36415; 80053; 82043; 82570; 83735; 84100; 85025

== ENCOUNTER → 2024-06-14 | Outpatient (CLI) | payer BC ==
[2024-06-14 10:48] LABS: BUN/Creat Ratio 20.69 Ratio (12.00-20.00); Blood Urea Nitrogen 26.9 mg/dL (9.0-27.0); Calcium 9.4 mg/dL (8.7-10.3); Carbon Dioxide 26.3 mmol/L (21.6-31.8); Chloride 102 mmol/L (96-109); Glucose 223 mg/dL (70-110); Potassium 4.7 mmol/L (3.5-5.5); Sodium 139 mmol/L (135-145)
== END | disposition home or self-care (01) ==
LOC: LABWHC1 07:14
PROVIDERS: ATTEND Internal Medicine
DX: N18.2 Chronic kidney disease, stage 2 (mild) (principal)
CPT/HCPCS: 36415; 80048

== ENCOUNTER → 2024-09-23 | Outpatient (CLI) | payer BC ==
[2024-09-23 10:36] LABS: HCT 42.1 % (37.2-46.3); HGB 13.2 g/dL (12.0-15.0); MCH 29.8 pg (27.0-32.0); MCHC 31.4 g/dL (32.0-37.0); Mean Platelet Volume 12.4 FL (9.5-12.2); NRBC Per 100 WBC 0 X 10*3/uL (0.00-0.01); Platelet Count 232 X 10*3/uL (140-440); RBC 4.43 X 10*6/uL (4.10-5.20); RDW 13.8 % (11.5-14.5); WBC 7.19 X 10*3/uL (4.50-10.00)
[2024-09-23 10:59] LABS: Urine Creatinine 57.8 mg/dL (28.0-217.0)
[2024-09-23 11:01] LABS: Appearance,Urine Clear (Clear); Bilirubin,Urine Negative (Negative); Blood,Urine Negative (Negative); Color,Urine Yellow (Yellow); Ketones,Urine Negative (Negative); Nitrite,Urine Positive (Negative); PH, Urine 7.5; Specific Gravity,Urine 1.021 (1.001-1.030)
[2024-09-23 11:05] LABS: Bacteria,Urine 4+ (None Seen)
[2024-09-23 15:42] LABS: % Iron Saturation 25.36 (12.00-45.00); ALT 19 U/L (8-44); AST 20 U/L (13-35); Albumin 4.1 g/dL (3.8-4.9); Albumin/Globulin Ratio 1.37 Ratio (1.60-3.17); Alkaline Phosphatase 99 U/L (41-126); BUN/Creat Ratio 21.73 Ratio (12.00-20.00); Blood Urea Nitrogen 23.9 mg/dL (9.0-27.0); Calcium 9.8 mg/dL (8.7-10.3); Carbon Dioxide 26.5 mmol/L (21.6-31.8); Chloride 100 mmol/L (96-109); Ferritin 82.6 ng/mL (10.0-291.0); Glucose 193 mg/dL (70-110); Iron 87 UG/DL (50-170); Magnesium 2.3 mg/dL (1.5-2.4); Phosphorus 3.5 mg/dL (2.4-5.1); Potassium 4.7 mmol/L (3.5-5.5); Sodium 140 mmol/L (135-145); Total Bilirubin 0.6 mg/dL (0.3-1.2); Total Iron Binding Capacity 343 UG/DL (228-460); Total Protein 7.1 g/dL (6.2-8.2); Uric Acid 5.5 mg/dL (2.9-7.7)
== END | disposition home or self-care (01) ==
LOC: LABWHC1 07:00
PROVIDERS: ATTEND Internal Medicine
DX: E55.9 Vitamin D deficiency, unspecified (principal); N18.2 Chronic kidney disease, stage 2 (mild); D63.1 Anemia in chronic kidney disease; N39.0 Urinary tract infection, site not specified; N25.81 Secondary hyperparathyroidism of renal origin; M10.9 Gout, unspecified; R80.9 Proteinuria, unspecified
CPT/HCPCS: 36415; 80053; 81001; 82043; 82306; 82570; 82728; 83540; 83550; 83735; 83883; 83970; 84100; 84166; 84550; 85027; 86334

== ENCOUNTER → 2024-09-25 | Outpatient (CLI) | payer BC ==
--- NOTE | 2024-09-25 07:05 | MR ---
EXAMINATION TYPE: MR brain and iac wo/w con DATE OF EXAM: 09/24/2024 COMPARISON: CT brain September 09, 2022 HISTORY: Hearing loss left ear, TECHNIQUE: Multiplanar, multisequence images of the brain and brainstem and internal auditory canals are all per formed without and with IV contrast, utilizing 12 mL intravenous Gadobutrol . FINDINGS: Diffusion weighted images demonstrate no evidence of a recent infarct or other diffusion ab normality. There is mild to moderate ventricular and sulcal prominence. There are a few small T2 hyp erintense foci scattered throughout the left brain parenchyma. Midline structures demonstrate normal morphology. The craniocervical junction appears within normal limits. Post contrast images demonstrate no abnormal enhancement. Incidental dominant left vertebral artery noted. The dural venous sinuses appear patent. Bilateral aphakia is present. Mild mucosal thi ckening anterior ethmoid sinuses is seen bilaterally. There is no suspicious opacification of the mastoid air cells bilaterally. The vestibulocochlear comp lexes are symmetric and felt within normal limits. No abnormal enhancing cerebellopontine angle mass is identified bilaterally. IMPRESSION: 1. No suspicious finding identified to account for patient's symptoms of left-sided hearing loss. 2. There is [id number] diffuse cerebral atrophy and minimal chronic small vessel ischemic candelaria e. No suspicious enhancement is identified. 3. Mild to minimal chronic anterior ethmoid sinus disease. [facility], , 09/25/2024 7:03 AM
== END | disposition home or self-care (01) ==
LOC: RADMRIMAIN 20:45
PROVIDERS: ATTEND Otolaryngology
DX: H90.42 Sensorineural hearing loss, unilateral, left ear, with unrestricted hearing on the contralateral side (principal); I67.82 Cerebral ischemia; G31.9 Degenerative disease of nervous system, unspecified
CPT/HCPCS: 70553; A9585

== ENCOUNTER → 2024-11-11 | Outpatient (CLI) | payer BC ==
[2024-11-11 14:30] LABS: Creatinine,Urine Random 259.1 mg/dL; Protein/Creatinine Ratio,Urine 0.062
[2024-11-11 20:14] LABS: HCT 40.9 % (37.2-46.3); HGB 13.1 g/dL (12.0-15.0); MCH 31.3 pg (27.0-32.0); MCV 97.8 FL (80.0-97.0); NRBC Per 100 WBC 0 X 10*3/uL (0.00-0.01); Platelet Count 255 X 10*3/uL (140-440); RBC 4.18 X 10*6/uL (4.10-5.20); RDW 13.7 % (11.5-14.5); WBC 9.97 X 10*3/uL (4.50-10.00)
[2024-11-11 21:19] LABS: Appearance,Urine Cloudy (Clear); Bilirubin,Urine Negative (Negative); Blood,Urine Negative (Negative); Color,Urine Dark Yellow (Yellow); Ketones,Urine 15 (Negative); Nitrite,Urine Negative (Negative); Specific Gravity,Urine 1.027 (1.001-1.030)
[2024-11-11 21:29] LABS: Bacteria,Urine 4+ (None Seen)
[2024-11-11 22:40] LABS: DNA Double-Stranded Negative (Negative)
[2024-11-12 09:41] LABS: Free Kappa Lt Chain Qnt, Serum 3.96 mg/dL (0.33-1.94); Free Lambda Lt Chain Qnt, Seru 2.36 mg/dL (0.57-2.63)
[2024-11-12 13:41] LABS: C-ANCA <1:20 Titer (<1:20)
== END | disposition home or self-care (01) ==
LOC: LABWHC1 12:29
PROVIDERS: ATTEND Nurse Practitioner Family
DX: R80.9 Proteinuria, unspecified (principal); N18.2 Chronic kidney disease, stage 2 (mild); D63.1 Anemia in chronic kidney disease; N39.0 Urinary tract infection, site not specified; E55.9 Vitamin D deficiency, unspecified; N25.81 Secondary hyperparathyroidism of renal origin; M10.9 Gout, unspecified
CPT/HCPCS: 36415; 80053; 81001; 82043; 82306; 82570; 82728; 83516; 83540; 83550; 83735; 83883; 83970; 84100; 84156; 84550; 85027; 86038; 86225; 86255